=== PATIENT | female | born 1945 | race Caucasian/White ===

== ENCOUNTER 2016-11-02 21:22 | Emergency (ER) | payer OTHER ==
[2016-11-02] MEDS ORDERED: KETOROLAC 30 MG/1 ML SDV IVP ONE (22:11)
[2016-11-02] MEDS ORDERED: NS 1,000 ML IV ONE (22:11)
[2016-11-02] MEDS ORDERED: PROMETHAZINE HCL 25 MG/ML INJ IVP ONE (22:12)
--- NOTE | 2016-11-02 22:17 | EDPHY ---
H & P Stated Complaint: EPISODE ARTERITIS- BECOME SEVERE TODAY, INCREASED PREDNISONE ON MON Time Seen by Provider: 11/02/16 22:02 HPI/ROS: HPI The patient presents with headache which began approximately 4 days ago and is sharp in nature, located in her right temporal region. She has a diagnosis of temporal arteritis and called her doctor. She increased her dose of prednisone 4 days ago from 10 mg to 20 mg for 1 week. Today she was at a [employer] service with loud music and bright lights at approximately 6:30 p.m. and her headache became worse. It is severe now, has been constant, was initially associated with blurry vision was is which is now resolved. She also has nausea without any vomiting.. REVIEW OF SYSTEMS Constitutional: No fever, no chills. Eyes: No discharge. ENT: No sore throat. Cardiovascular: No chest pain, no palpitations. Respiratory: No cough, no shortness of breath. Gastrointestinal: No abdominal pain, no vomiting. Genitourinary: No hematuria. Musculoskeletal: No back pain. Skin: No rashes. Neurological: Positive for headache. PMHx: Temporal arteritis, followed by Neurology PHYSICAL General Appearance: Alert, uncomfortable appearing, crying Eyes: Pupils equal and round no pallor or injection ENT, Mouth: Mucous membranes moist Respiratory: There are no retractions, lungs are clear to auscultation Cardiovascular: Regular rate and rhythm Gastrointestinal: Abdomen is soft and non-tender, no masses, bowel sounds normal Neurological: A&O, moves all extremities Skin: Warm and dry, no rashes Musculoskeletal: Neck is supple non tender Extremities: symmetrical, full range of motion Psychiatric: Patient is oriented X 3, there is no agitation Source: Patient Exam Limitations: No limitations - Personal History Current Tetanus/Diphtheria Vaccine: Yes Tetanus Vaccine Date: 2007 - Medical/Surgical History Hx Asthma: Yes Hx Chronic Respiratory Disease: Yes Hx Diabetes: No Hx Cardiac Disease: Yes Hx Renal Disease: No Hx Cirrhosis: No Hx Alcoholism: No Hx HIV/AIDS: No Hx Splenectomy or Spleen Trauma: No Other PMH: fibromyalgia, HTN, obesity, eczema. asthma, spinal fusion. appy dimitris, shoulder surgery(bilat rotator cuffs), bilat knee replacements. Angio February 2012 @[facility]. - Social History Smoking Status: Never smoked Constitutional: Initial Vital Signs Temperature (C) 36.8 C 11/02/16 21:31 Heart Rate 79 11/02/16 21:31 Respiratory Rate 24 H 11/02/16 21:31 Blood Pressure 130/90 H 11/02/16 21:31 O2 Sat (%) 93 11/02/16 21:31 O2 Delivery Mode Room Air O2 (L/minute) 3 Allergies/Adverse Reactions: latex [Latex] Allergy (Severe, Verified 11/02/16 21:27) Dyspnea hydrocodone bitartrate [From Vicodin] Allergy (Intermediate, Verified 11/02/16 21:27) Rash Sulfa (Sulfonamide Antibiotics) Allergy (Mild, Verified 11/02/16 21:27) Rash CINNAMON, CUMIN, BEER, WINE Allergy (Severe, Uncoded 11/02/16 21:27) DERMATITIS TOMATOES Allergy (Severe, Uncoded 11/02/16 21:27) DERMATITIS CHOCOLATE Allergy (Intermediate, Uncoded 11/02/16 21:27) DERMATITIS Home Medications: Medication Instructions Recorded Budesonide/Formoterol 160/4.5 1 puffs IH BID 08/20/13 [Symbicort 160-4.5 Mcg Inh (*)] DULoxetine [Cymbalta 60 MG (*)] 60 mg PO DAILY 08/20/13 Diphenoxylate HCl/Atrop Sulf 1 tab PO PRN PRN 08/20/13 [Lomotil Tab (*)] Hyoscyamine Sulfate [Levsin, 0.125 mg PO Q12H PRN 08/20/13 Hyomax-Sl 0.125 mg (*)] Montelukast Sodium [Singulair 10 10 mg PO DAILY@1800 08/20/13 mg (*)] Pregabalin [LYRICA] 200 mg PO BID 08/20/13 diphenhydrAMINE [Benadryl 25 MG 25 mg PO HS PRN 08/20/13 (*)] Doxepin HCl [Sinequan 50 MG (*)] 50 mg PO DAILY PRN 04/04/16 Cetirizine [ZyrTEC 10 mg (*)] 10 mg PO DAILY PRN 04/07/16 Docusate Sodium [Colace 100 MG (*)] 100 mg PO BID PRN 04/07/16 Fluticasone Nasal [Flonase Nasal 1 sprays EACHNARE DAILY PRN 04/07/16 [place]] Lansoprazole [Prevacid] 30 mg PO DAILY 04/07/16 Valsartan/Hydrochlorothiazide 1 each PO DAILY 04/07/16 [Valsartan-Hctz 160-12.5 mg Tab] predniSONE [Deltasone] 60 mg PO DAILY 04/07/16 Clobetasol 0.05% 11/02/16 Medical Decision Making ED Course/Re-evaluation: The patient was given IV fluids, Toradol, Phenergan with significant improvement in her headache. She is now experiencing only a mild headache which is tolerable for her. Her neuro exam continues to be normal. She will be discharged home in the care of her . I have encouraged her to take ibuprofen and Tylenol as needed for her headache in the coming days. If it persists, she is to follow up with her powder mixer. She should continue her prednisone. Differential Diagnosis: This is a 71-year-old female with diagnosis of temporal arteritis, currently on prednisone, who presents from home with severe headache which has gotten progressively worse since it started 4 days ago, possibly triggered by bright lights and loud noises tonight. On exam, she is uncomfortable, vital signs are normal,, neurologic exam is unremarkable. Differential diagnosis includes temporal arteritis, migraine headache, tension type headache, cluster headache. - Data Points Medications Given: Discontinued Medications Sodium Chloride (Ns) 1,000 mls @ 0 mls/hr IV ONCE ONE PRN Reason: Wide Open Stop: 11/02/16 22:12 Last Admin: 11/02/16 22:19 Dose: 1,000 mls Ketorolac Tromethamine (Toradol) 30 mg IVP EDNOW ONE Stop: 11/02/16 22:12 Last Admin: 11/02/16 22:19 Dose: 30 mg Promethazine HCl (Phenergan) 12.5 mg IVP ONCE ONE Stop: 11/02/16 22:13 Last Admin: 11/02/16 22:19 Dose: 12.5 mg Departure - Departure Disposition: Home, Routine, Self-Care Clinical Impression: Temporal arteritis, Frontal headache Condition: Good Instructions: Temporal Arteritis (ED) Additional Instructions: You can take ibuprofen 400 mg and Tylenol 650 mg every 6 hours as needed for your headache. If it persists, you should contact her powder mixer for follow -up in the next 1-2 days. If it is worse in any way please room return to the emergency room. Referrals: Vania Cummings MD [Primary Care Provider] - As per Instructions
[2016-11-02 23:04] VITALS: BP 128/84; PULSE 78; RESP 14; O2SAT 98
[2016-11-02 23:49] VITALS: TEMP 97.7
== END 2016-11-02 23:48 | disposition home or self-care (01) ==
DX: R51 Headache (principal); M31.6 Other giant cell arteritis; J45.909 Unspecified asthma, uncomplicated; I10 Essential (primary) hypertension; Z91.040 Latex allergy status
CPT/HCPCS: 96361; 96374; 96375; 99284; J1885; J2550

== ENCOUNTER → 2017-07-06 | Outpatient (CLI) | payer OTHER | LOC: FIMAGING 14:34 | PROVIDERS: ATTEND Orthopaedic Surgery Orthopaedic Surgery of the Spine | DX: Z09 Encounter for follow-up examination after completed treatment for conditions other than malignant neoplasm (principal); M54.5 Low back pain; Z98.1 Arthrodesis status ==

== ENCOUNTER 2017-09-30 15:34 | Inpatient (IN) | payer OTHER ==
--- NOTE | 2017-09-30 16:04 | EDPHY ---
H & P Time Seen by Provider: 09/30/17 15:59 HPI/ROS: Chief complaint. Back pain HPI. Patient is 72-year-old female with chronic back pain. She has increased back pain over the last several days. In typical location but worsening. She had an L2 kyphoplasty 3-4 weeks ago. She had been using Percocet but had stay untoward reaction to the Percocet psoas stopped. She use some hydrocodone even though she was allergic to it but that has not helped today. She has been using ibuprofen. She has pain and burning in both legs. She also notes new weakness in her legs. No new urinary incontinence and bowel incontinence. diarrhea the last few days. No fever. History of fusion L3-S1. Review of old records reveals a x-ray from July 06 which shows settling of L2 and L3 though the fusion at L3-S1 was stable. New spondylolisthesis at L1-2, L2-3. ROS Constitutional. no fever/chills, no weakness Eyes. no problems with vision ENT. no sore throat, no nasal drainage Cardiovascular. no chest pain Respiratory. no shortness of breath, no cough Abdominal. no abdominal pain, no nausea/vomiting, no diarrhea . no problems urinating MS. Low back pain Skin. no rash Lymph. no swollen glands Neuro. Leg weakness as well as radiculopathy. New bowel and bladder incontinence Past Medical/Surgical History: Fibromyalgia, hypertension, obesity, eczema, asthma, spinal fusion, appendectomy , cholecystectomy, multiple orthopedic procedures Social History: , nonsmoker, no alcohol Smoking Status: Never smoked Physical Exam: General Appearance: Alert well-developed female moderate distress vital signs are stable Eyes: Pupils equal and round no pallor or injection. ENT, Mouth: Mucous membranes are moist. Respiratory: There are no retractions, lungs are clear to auscultation. Cardiovascular: Regular rate and rhythm. Gastrointestinal: Abdomen is soft and nontender, no masses, bowel sounds normal. Neurological: Awake and alert, sensory and motor exams grossly normal. Deep tendon reflexes are symmetrical. Great toe strength is normal. Pain with straight leg raising to 30 degrees bilaterally Skin: Warm and dry, no rashes. Musculoskeletal: Neck is supple nontender. Tenderness along the lumbar spine. Thoracic and cervical spine are nontender. No obvious swelling or erythema. Extremities symmetrical, full range of motion. Psychiatric: Patient is oriented X 3, there is no agitation. Constitutional: Initial Vital Signs Temperature (C) 36.8 C 09/30/17 15:38 Heart Rate 105 H 09/30/17 15:38 Respiratory Rate 20 09/30/17 15:38 Blood Pressure 125/70 H 09/30/17 15:38 O2 Sat (%) 91 L 09/30/17 15:38 O2 Delivery Mode Nasal Cannula O2 (L/minute) 3 Allergies/Adverse Reactions: latex [Latex] Allergy (Severe, Verified 09/30/17 15:36) Dyspnea hydrocodone bitartrate [From Vicodin] Allergy (Intermediate, Verified 09/30/17 15:36) Rash Sulfa (Sulfonamide Antibiotics) Allergy (Mild, Verified 09/30/17 15:36) Rash CINNAMON, CUMIN, BEER, WINE Allergy (Severe, Uncoded 11/02/16 21:27) DERMATITIS TOMATOES Allergy (Severe, Uncoded 11/02/16 21:27) DERMATITIS CHOCOLATE Allergy (Intermediate, Uncoded 11/02/16 21:27) DERMATITIS Home Medications: Medication Instructions Recorded Budesonide/Formoterol 160/4.5 1 puffs IH BID 08/20/13 [Symbicort 160-4.5 Mcg Inh (*)] DULoxetine [Cymbalta 60 MG (*)] 60 mg PO DAILY 08/20/13 Diphenoxylate HCl/Atrop Sulf 1 tab PO PRN PRN 08/20/13 [Lomotil Tab (*)] Hyoscyamine Sulfate [Levsin, 0.125 mg PO Q12H PRN 08/20/13 Hyomax-Sl 0.125 mg (*)] Montelukast Sodium [Singulair 10 10 mg PO DAILY@1800 08/20/13 mg (*)] Pregabalin [LYRICA] 200 mg PO BID 08/20/13 diphenhydrAMINE [Benadryl 25 MG 25 mg PO HS PRN 08/20/13 (*)] Doxepin HCl [Sinequan 50 MG (*)] 50 mg PO DAILY PRN 04/04/16 Cetirizine [ZyrTEC 10 mg (*)] 10 mg PO DAILY PRN 04/07/16 Docusate Sodium [Colace 100 MG (*)] 100 mg PO BID PRN 04/07/16 Fluticasone Nasal [Flonase Nasal 1 sprays EACHNARE DAILY PRN 04/07/16 [place]] Lansoprazole [Prevacid] 30 mg PO DAILY 04/07/16 Valsartan/Hydrochlorothiazide 1 each PO DAILY 04/07/16 [Valsartan-Hctz 160-12.5 mg Tab] predniSONE [Deltasone] 60 mg PO DAILY 04/07/16 Clobetasol 0.05% 11/02/16 Medical Decision Making - Diagnostics Imaging Results: Imaging Impressions Lumbar Spine MRI 09/30/17 16:15 Impression: 1. Interval development of disk extrusion extending superiorly left posterior paracentral location at L1-L2 contributing to severe spinal stenosis and left lateral recess stenosis along with neuroforaminal stenoses as detailed above. There is compression upon the conus with surrounding contrast enhancement related to inflammation. 2. Previous fusion from L3 through S1. 3. Persistent severe spinal stenosis at L2-L3. 4. Edema and oblique fracture suspected through the mid body of L2 with associated enhancement. 5. Subluxations once again noted at L1-L2, L2-L3, and L3-L4 measuring 3 to 4 mm. Please see findings at specific disk levels. Findings discussed with Kevon Ch M.D. at 18:20 hour, 09/30/2017. MRI lumbar spine with contrast shows a new large disc extrusion left paracentral and superior at L1-2 and is pressing on the conus. Worsening spinal stenosis at this level Edema at L2 that is also worse compared to the previous. It appears that this may be an insufficiency fracture without compression. Stable L2-3 with severe spinal stenosis Procedures: IV normal saline, Dilaudid for pain Repeat Dilaudid for pain ED Course/Re-evaluation: Re-evaluation at 6:25 p.m.-- Patient is stable and pain is better controlled. Patient, her , and I discussed imaging and lab results. We discussed treatment plan including recommendation for admission. They expressed understanding and agreement I consulted and discussed case with Dr. roque, neurosurgery who will review the MRI And see the patient in consultation I consulted discussed case with Dr. Peterson, hospitalist who agrees to the admission Differential Diagnosis: Likely this is cauda equina syndrome. She has severe spinal stenosis and a new large disc extrusion at L1 to that is pressing on the conus. I considered DJD as well. - Data Points Laboratory Results: Laboratory Results 09/30/17 16:24 09/30/17 16:24 09/30/17 09/30/17 09/30/17 18:18 16:24 16:24 WBC 10.60 10^3/uL H 10^3/uL (3.80-9.50) RBC 3.64 10^6/uL L 10^6/uL (4.18-5.33) Hgb 11.3 g/dL L g/dL (12.6-16.3) Hct 34.3 % L % (38.0-47.0) MCV 94.2 fL fL (81.5-99.8) MCH 31.0 pg pg (27.9-34.1) MCHC 32.9 g/dL g/dL (32.4-36.7) RDW 13.1 % % (11.5-15.2) Plt Count 265 10^3/uL 10^3/uL (150-400) MPV 11.1 fL fL (8.7-11.7) Neut % (Auto) 64.2 % % (39.3-74.2) Lymph % (Auto) 20.2 % % (15.0-45.0) [place] % (Auto) 12.0 % % (4.5-13.0) Eos % (Auto) 3.0 % % (0.6-7.6) Baso % (Auto) 0.3 % % (0.3-1.7) Nucleat RBC Rel Count 0.0 % % (0.0-0.2) Absolute Neuts (auto) 6.81 10^3/uL H 10^3/uL (1.70-6.50) Absolute Lymphs (auto) 2.14 10^3/uL 10^3/uL (1.00-3.00) Absolute Monos (auto) 1.27 10^3/uL H 10^3/uL (0.30-0.80) Absolute Eos (auto) 0.32 10^3/uL 10^3/uL (0.03-0.40) Absolute Basos (auto) 0.03 10^3/uL 10^3/uL (0.02-0.10) Absolute Nucleated RBC 0.00 10^3/uL 10^3/uL (0-0.01) Immature Gran % 0.3 % % (0.0-1.1) Immature Gran # 0.03 10^3/uL 10^3/uL (0.00-0.10) Sodium 136 mEq/L mEq/L (135-145) Potassium 4.3 mEq/L mEq/L (3.5-5.2) Chloride 95 mEq/L L mEq/L (97-110) Carbon Dioxide 30 mEq/l mEq/l (22-31) Anion Gap 11 mEq/L mEq/L (8-16) BUN 16 mg/dL mg/dL (7-23) Creatinine 0.8 mg/dL mg/dL (0.6-1.0) Estimated GFR > 60 Glucose 136 mg/dL H mg/dL (70-100) Calcium 9.7 mg/dL mg/dL (8.5-10.4) Urine Color YELLOW Urine Appearance CLEAR Urine pH 6.0 (5.0-7.5) Ur Specific [place] 1.013 (1.002-1.030) Urine Protein NEGATIVE (NEGATIVE) Urine Ketones NEGATIVE (NEGATIVE) Urine Blood NEGATIVE (NEGATIVE) Urine Nitrate NEGATIVE (NEGATIVE) Urine Bilirubin NEGATIVE (NEGATIVE) Urine Urobilinogen NEGATIVE EU EU (0.2-1.0) Ur Leukocyte Esterase TRACE H (NEGATIVE) Urine RBC 1-3 /hpf /hpf (0-3) Urine WBC 10-15 /hpf H /hpf (0-3) Ur Epithelial Cells NONE SEEN /lpf /lpf (NONE-1+) Hyaline Casts 5-15 /lpf /lpf (0-1) Urine Mucus TRACE /lpf /lpf (NONE-1+) Urine Glucose NEGATIVE (NEGATIVE) Medications Given: Discontinued Medications Hydromorphone HCl (Dilaudid) 0.5 mg IVP EDNOW ONE Stop: 09/30/17 16:15 Last Admin: 09/30/17 16:37 Dose: 0.5 mg Hydromorphone HCl (Dilaudid) 0.5 mg IVP EDNOW ONE Stop: 09/30/17 17:58 Last Admin: 09/30/17 18:00 Dose: 0.5 mg Sodium Chloride (Ns) 1,000 mls @ 0 mls/hr IV EDNOW ONE; Wide Open PRN Reason: Protocol Stop: 09/30/17 16:15 Last Admin: 09/30/17 16:28 Dose: 1,000 mls Departure - Departure Disposition: Home, Routine, Self-Care Clinical Impression: Lumbar canal stenosis Qualifiers: Neurogenic claudication status: with neurogenic claudication Qualified Code(s) : M48.062 - Spinal stenosis, lumbar region with neurogenic claudication Condition: Fair Referrals: Vania Cummings MD [Primary Care Provider] - As per Instructions
[2017-09-30] MEDS ORDERED: HYDROmorphONE/DILAUDID 1 MG/ML INJ IVP ONE ×3 (16:14→20:17)
[2017-09-30] MEDS ORDERED: NS 1,000 ML IV ONE (16:14)
[2017-09-30 16:38] LABS: PLATELET COUNT 265 10^3/uL (150-400)
[2017-09-30] MEDS ORDERED: GADOBUTROL 10 ML VIAL IVP ONE (16:57)
[2017-09-30] MEDS ORDERED: HYDROmorphONE/DILAUDID 1 MG/ML INJ ONE (17:55)
[2017-09-30] MEDS ORDERED: CETIRIZINE 10 MG TAB PO PRN (21:11)
[2017-09-30] MEDS ORDERED: BUDESONIDE/FORMOTEROL 160/4.5 60 PUFFS/MDI IH PRN (21:11)
[2017-09-30] MEDS ORDERED: DOCUSATE SODIUM 100 MG CAP PO PRN (21:11)
[2017-09-30] MEDS ORDERED: HYOSCYAMINE SULFATE 0.125 MG TAB PO PRN (21:11)
[2017-09-30] MEDS ORDERED: NALOXONE HCL 0.4 MG/ML INJ IVP PRN (21:14)
[2017-09-30] MEDS ORDERED: morphINE PCA 30 MG/30 ML PCA IV PRN (21:14)
[2017-09-30] MEDS ORDERED: DUPILUMAB 300 MG SQ SCH (21:15)
[2017-09-30] MEDS ORDERED: ZOLPIDEM TARTRATE 5 MG TAB PO PRN (21:18)
[2017-09-30] MEDS ORDERED: ALBUTEROL 3 ML DEYVIAL IH PRN (21:18)
[2017-09-30] MEDS ORDERED: ONDANSETRON 4 MG/2 ML VIAL IVP PRN (21:18)
[2017-09-30] MEDS ORDERED: NS 1,000 ML IV SCH (21:30)
[2017-09-30] MEDS: CYCLOBENZAPRINE 10 MG TAB PO PRN (21:40)
[2017-09-30] MEDS: ACETAMINOPHEN 325 MG TAB PO PRN (21:40)
--- NOTE | 2017-09-30 23:15 | PDGENHP ---
History and Physical History and Physical: CC: Severe back pain, leg weakness and incontinence HISTORY: This woman who has a previous history of fusion from what sounds like L3 to S2 and a recent kyphoplasty comes in now with new onset of severe low lumbar sacral pain, bilateral sciatic pain, and onset of bowel and bladder incontinent. All of these symptoms have occurred over the last several days. She does not recall any kind of injury that would have triggered these symptoms. She has no fever. There is nothing in her history to suggest likely cancer. In the emergency room she had an MRI scan showing did what sounds like a insufficiency fracture at the 2nd lumbar vertebral body, new disc pertrusion at L2-3 with new severe canal and lateral recess stenosis at that level, continued L3-4 severe stenosis, and new finding of compression of the conus. She has been seen by the neurosurgery marketing sales consultant who is recommending surgery tomorrow morning for her. Regarding assessment for surgical fitness, the patient has no history of heart disease and no symptoms to suggest any recent onset of heart disease or current heart disease. She did have a coronary angiography in 2011 with no sign of coronary diseas. e She does have a history of chronic respiratory failure and uses 2-3 L oxygen at home. She and her state that the 5 doctors at the [facility] have been unable to determine what lung or other problem is causing her chronic hypoxic respiratory failure. She did have childhood asthma but rarely has any wheezing or need for other inhaler at this point. She says that she had sleep apnea testing and was tested negative for sleep apnea however she has been prescribed BiPAP that they want her to wear at night. She says for last 6 months she has not been wearing it much due to trouble with her past history of temporal arteritis. She has never been a smoker. It sounds like she has had echocardiograms but does not recall ever being told of pulmonary hypertension. She has never had any bleeding disorders or thromboembolic disorders, never had any anesthetic complications, is not diabetic, does not have renal failure. Her activity level is minimal this is due to her ongoing back problems and not due to dyspnea or like a fitness by the patient's description, however given her story of her chronic respiratory failure on home oxygen it would seem to me that she is probably more limited by respiratory issues then she will let on. For her temporal arteritis she has been on steroids in the past. Her last use of steroid was a 10 day rapid taper 2 months ago. 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 I have reviewed the list and ordered appropriate medicines. PHYSICAL EXAMINATION: Vital Signs: Normal vital signs without fever Examination: General: alert, oriented, good mentation, very uncomfortable at this time with ongoing lumbar and sciatic pain; significant obesity Skin: warm, dry, good color, no rash HEENT: normal Neck: no mass or jvd Resps: relaxed Lungs: clear breath sounds Heart: regular, no murmur Abdomen: soft, nondistended, nontender, +BS, no mass Upper Extremities: normal Lower Extremities: no edema, warm No Bleeding or bruising Neurologic: normal speech/language, normal technical sales support specialist, no focal weakness IV site: looks normal LABORATORY DATA: Minimal elevation of white blood cell count on CBC Chemistry panel unremarkable RADIOLOGY STUDIES: MRI reviewed by me in the ER with the ER physician, shows significant spinal stenosis at L2-3 and 3 4, and I think I do appreciate the abnormality representing the reported L2 body fracture. I do not see an abscess or hematoma ASSESSMENT: 1-acute cauda equina syndrome 2-new severe spinal stenosis with cauda equina entrapment at L2-3 with persisting severe L3-4 stenosis 3-probable new compression fracture at L2 body 4-chronic hypoxemic respiratory failure, stable at baseline 3 L oxygen; 5-suspect obesity hypoventilation syndrome and/or sleep apnea for which she has been prescribed nocturnal BiPAP at home though not using it recently 6-history of temporal arteritis and a skin arteritis for which she has previously used steroids. Last dose of steroids was a 10 day rapid per completed 2 months ago 7-history of hypertension currently controlled 8-history of pre diabetes with a minimally elevated blood sugar at this time Preoperative risk assessment: The patient is a somewhat increased risk of respiratory complications based on her history but she is at a compensated stable state at this time. Her risk is certainly not prohibitive for surgery but will want to follow closely in the postop setting and I will recommend ongoing use of BiPAP during sleep during her hospital stay. She is unlikely to have a problem with adrenal insufficiency but we can watch closely for this. I would not at this time recommend using steroids. At this time there is no reason to delay surgery for any further diagnostic evaluations or medical stabilization. Please see above in the history and assessment for details. PLANS: -proceed with surgery as planned tomorrow morning -I am recommending BiPAP during sleep throughout this hospitalization and I have ordered such -bronchodilators as needed and oxygen as needed -pain management currently with LABOR DELIVERY SPECIALIST pump and some muscle relaxers -I have not ordered anticoagulant tonight for DVT prophylaxis as she will have surgery in the morning, but have ordered SCDs. Anticoagulant for prophylaxis may be ordered postoperatively once the surgeons are comfortable with that which will likely be be promptly after surgery unless complications arise I have reviewed the patient's case in detail with Dr. Kevon Ch I have reviewed the patient's past medical records as part of this assessment, including previous hospital admission records as well as outside records brought in by her
--- NOTE | 2017-09-30 23:42 | GCON ---
[f rep st] CONSULTATION DATE OF CONSULTATION: 09/30/2017 CONSULTING SERVICE: Dr. Ch, Emergency Medicine. SENIOR ORACLE SOA DEVELOPER: Dr. Pool, Neurosurgery. REASON FOR CONSULT: Spinal stenosis with back pain and urinary change. HISTORY OF PRESENT ILLNESS: The patient is a 72-year-old female with a history of an L3-S1 fusion wi Dr. Sonam Leonard in the past who has had chronic back pain since. She was slated to have a spinal cord stimulator implanted. She has also had a kyphoplasty recently. She has been seen mult iple times in and out of the hospital for severe back pain. She presents now with significant anteri or thigh pain in both legs as well as incomplete urinary incontinence for the past 7 days that may be neurogenic in nature or could possibly be pain related. She has significant spinal stenosis at 2 le vels above her fusion and she presents tonight to the emergency room with her for these compl aints. PAST MEDICAL AND SURGICAL HISTORY: Per HPI: Fibromyalgia, hypertension, obesity, eczema, asthma, sp inal fusion, appendectomy, cholecystectomy, multiple orthopedic procedures. ALLERGIES: Latex, hydrocodone, sulfa, cinnamon, tomatoes and chocolate. CODE STATUS: Full. SOCIAL HISTORY: . Nonsmoker. No alcohol. No illicits. FAMILY HISTORY: No history of spinal fusion. REVIEW OF SYSTEMS: Ten points reviewed and negative or as mentioned in History of Present Illness. PHYSICAL EXAMINATION: VITAL SIGNS: Afebrile 36.8, heart rate 105, blood pressure 125/70, respirator y rate 20, saturating 91% on 3 L. LABS: White blood cell 10.6, hemoglobin 11.3, platelets 265. Sodium 136, potassium 4.3, BUN 16, cre atinine 0.8, glucose 136. UA normal with only trace leuk esterase and 10 white blood cells. IMAGING: I reviewed the patient's MRI. She has significant stenosis at the adjacent segment above h er fusion at L1-2 and L2-3 with anterior listhesis there as well. She is fused in a flat back config uration as well from L3-S1. NEUROLOGIC EXAM: Patient is awake, alert, oriented x3. Appears stated age. She is in significant d iscomfort in her ED bed. She has normal cranial nerves. She has 5/5 strength in all extremities wit h a normal sensory exam and normal reflex exam without any abnormal exam findings. Gait is deferred. IMPRESSION AND PLAN: A 72-year-old female with a history of an L3-S1 spinal fusion. She has been fu sed in a flat back spinal deformity. She has had significant adjacent segment disk disease at L1-2 a nd L2-3. She has chronic back pain. She has stenosis as well at L1-2 and L2-3, and she has been hav ing some vague urinary changes for the past week or so. Given the patient's chronic pain and now bow el bladder change, surgery is indicated. I am scheduling her for an extension of her fusion up to L1 with laminectomies at L1-2 and L2-3, and hopefully some attempt at correcting her abysmal spinal def ormity that was created with her first spinal fusion with Dr. Leonard. I spent an hour at the bedside with the patient and her explaining the ends and outs of the d iagnosis and procedure plans. They were very grateful. I then proceeded to the operating room and b ooked the case for tomorrow morning. She will be admitted to Medicine for pain control and medical c romulo. /[id number]/MODL
--- NOTE | 2017-10-01 00:02 | PDMN ---
Medical Necessity Medical necessity: C/M review: est. > 2 MN LOS for eval and TX of acute cauda equine syndrome, new severe spinal stenosis with cauda equine entrapment at L2- l3 with persisting severe L3-L4 stenosis, probable new compression fracture at L2 body requiring planned 10/01/2017 surgical intervention, ongoing BiPaP during sleep throughout this hospitalization, pulse oximetry, supplemental O2, IV Morphine STEREOTYPE MOLDER, IV fluids, comorbid chronic hypoxemic respiratory failure, baseline O2 3L/min., suspected obesity hypoventilation syndrome and / or sleep apnea for which patient has been prescribed nocturnal BiPaP at home but not using it currently, history of temporal arteritis, hypertension, pre-diabetes per H/P.
[2017-10-01 05:20] LABS: PLATELET COUNT 242 10^3/uL (150-400)
[2017-10-01] MEDS: PREGABALIN 100 MG CAP PO SCH ×2 (08:47→22:06)
[2017-10-01] MEDS: DULoxetine 60 MG CAP PO SCH (08:47)
[2017-10-01] MEDS: VALSARTAN/HCTZ 80-12.5MG TAB PO SCH (08:48)
[2017-10-01] MEDS: PANTOPRAZOLE SODIUM 40 MG TAB PO SCH (08:48)
[2017-10-01] MEDS ORDERED: ceFAZolin 2 GM/SWFI 2 GM/20 ML SYR IVP ONE (09:00)
[2017-10-01] MEDS ORDERED: ceFAZolin 2 GM/SWFI 20 ML SYR IVP ONE (09:00)
--- NOTE | 2017-10-01 09:23 | NEUSURGPN ---
Assessment/Plan: Assessment: 72 yr old with history of L3-S1 fusion in 2012, presented to ER with urinary incontinence and anterior/quad pain bilaterally Plan: -MRI lumbar spine shows disc bulge at L1-2 and stenosis at L2-3 with listhesis and flat back deformity from her prior surgery -CT lumbar spine shows lucency at her bilateral S1 screws and left L3 screw -Patient planned for surgery today for L1-2, L2-3 TLIF/laminectomy with tie into existing hardware with Dr Pool -Risks/benefits discussed and consent has been signed -Discussed CT findings with patient and . Correction of pseudo at L5-S1 would require a more extensive surgery including an anterior/posterior approach. We will see how she recovers from this surgery which is needed to address the severe stenosis at the levels above her fusion site and hope that we can avoid more extensive surgery in the future. -Patient and agree with the plan and wish to proceed -Patient is currently incontinent of urine -Discussed patient with Dr Pool and he will see her as well prior to surgery -Please call neurosurgery with any questions/concerns Subjective: patient has bilateral leg pain equally Objective: AxO x3 5/5 BUE 4/5 BLE throughout Sensation intact to light touch BLE Neuro Check Frequency: per routine Urinary Catheter in Place: No - Physician Discussed Patient with Dr.: Pool Patient Seen by Dr.: Pool Neurosurgery Physical Exam - Vitals, I&O, Labs I and O 09/30/17 10/01/17 10/02/17 05:59 05:59 05:59 Intake Total 2020 Output Total 200 Balance 1821 Weight 99.79 kg Intake: Oral (ml) 300 IV Infused (ml) 1721 Ns 1,000 ml @ 75 mls/hr 721 IV CONT CORWIN Rx#: [id number] Output: Urine (ml) 200 Other: Number of Voids 1 Bedpan 0 Vital Signs Temp Pulse Resp BP Pulse Ox 36.9 C 92 16 112/64 100 10/01/17 08:36 10/01/17 08:36 10/01/17 08:36 10/01/17 08:36 10/01/17 08:36 Laboratory Results 10/01/17 04:25 10/01/17 04:25 ICD10 Worksheet Patient Problems: Problems Problem Status Onset Lumbar canal stenosis Acute C. difficile diarrhea Acute 04/12/17 Chest pain Acute Hypertension Acute RAD (reactive airway disease) Acute Stenosis (acquired) of bladder neck or vesicourethral orifice Acute
--- NOTE | 2017-10-01 09:26 | PDHPUP ---
History & Physical Update H&P update statement: This history and physical update is based on an assessment of the patient which was completed after admission or registration (within 24 hours), but prior to the surgery/procedure. H&P update: H&P reviewed & patient examined, no change in patient's condition since H&P completed
[2017-10-01] MEDS ORDERED: DEXMEDETOMIDINE/NS 4MCG/ML 50 ML BTL IV ONE (09:28)
[2017-10-01] MEDS ORDERED: ALBUMIN 5% 250 ML BOTTLE IV ONE (09:28)
[2017-10-01] MEDS ORDERED: PROPOFOL/EMULSION 500 MG/50 ML BOTTLE IV ONE (09:30)
[2017-10-01] MEDS ORDERED: fentaNYL 100 MCG/2 ML INJ ONE ×6 (09:30→18:21)
[2017-10-01] MEDS: fentaNYL 100 MCG/2 ML INJ IVP PRN ×5 (09:40→18:25)
[2017-10-01] MEDS ORDERED: VANCOMYCIN 1 GM VIAL ONE (09:44)
[2017-10-01] MEDS ORDERED: BUPIVACAINE 0.25% 30 ML SDV ONE (09:44)
[2017-10-01] MEDS ORDERED: THROMBIN (BOVINE) 5,000 UNIT VIAL TP ONE (09:44)
[2017-10-01] MEDS ORDERED: BACITRACIN 50,000 UNITS/10 ML SYR IRR ONE ×2 (09:45→09:58)
[2017-10-01] MEDS ORDERED: CITRATE DEXTROSE SOLN 500 ML BAG ONE ×2 (09:47→12:48)
--- NOTE | 2017-10-01 09:53 | ASMTCMCOM ---
CM Note CM Note Notes: Reviewed chart amnd discussed w/RN. Pt in surgery today. She lives at home w/. CM will follow post-op to determine if any dc needs. Date Signed: 10/01/2017 09:52 AM Electronically Signed By:Gaby Lyon RN
[2017-10-01] MEDS ORDERED: HYDROmorphONE/DILAUDID 1 MG/ML INJ ONE (10:35)
[2017-10-01] MEDS: HYDROmorphONE/DILAUDID 1 MG/ML INJ IVP PRN ×3 (10:40→11:21)
[2017-10-01] MEDS ORDERED: MIDAZOLAM 2 MG/2 ML VIAL ONE (12:15)
[2017-10-01] MEDS ORDERED: ROCURONIUM 50 MG/5 ML VIAL ONE (12:56)
[2017-10-01] MEDS ORDERED: PHENYLEPHRINE 10 MG/ML SDV ONE (12:56)
[2017-10-01] MEDS ORDERED: RANITIDINE 50 MG/2 ML VIAL ONE ×2 (12:56)
[2017-10-01] MEDS ORDERED: LIDOCAINE 2% 5 ML SDV ONE (12:56)
--- NOTE | 2017-10-01 13:19 | PDANEPAE ---
ANE Past Medical History - Pulmonary History Hx Oxygen in Use at Home: Yes O2 in Use at Home (L/minute): 3 Hx Sleep Apnea: Yes Sleep Apnea Screening Result - Last Documented: Positive - Endocrine History Hx Diabetes: No - Chronic Pain History Chronic Pain: Yes ANE Review of Systems Review of Systems: ANE Patient History - Allergies Allergies/Adverse Reactions: latex [Latex] Allergy (Severe, Verified 09/30/17 15:36) Dyspnea hydrocodone bitartrate [From Vicodin] Allergy (Intermediate, Verified 09/30/17 15:36) Rash Sulfa (Sulfonamide Antibiotics) Allergy (Mild, Verified 09/30/17 15:36) Rash CINNAMON, CUMIN, BEER, WINE Allergy (Severe, Uncoded 11/02/16 21:27) DERMATITIS TOMATOES Allergy (Severe, Uncoded 11/02/16 21:27) DERMATITIS CHOCOLATE Allergy (Intermediate, Uncoded 11/02/16 21:27) DERMATITIS - Home Medications Home Medications: Budesonide/Formoterol 160/4.5 [Symbicort 160-4.5 Mcg Inh (*)] 1 puffs IH BID PRN 08/20/13 [Last Taken 08/20/13 08:20] DULoxetine [Cymbalta 60 MG (*)] 60 mg PO DAILY 08/20/13 [Last Taken 09/30/17] Diphenoxylate HCl/Atrop Sulf [Lomotil Tab (*)] 1 tab PO PRN PRN 08/20/13 [Last Taken Unknown] Hyoscyamine Sulfate [Levsin, Hyomax-Sl 0.125 mg (*)] 0.25 mg PO Q12H PRN [Last Taken Unknown] Montelukast Sodium [Singulair 10 mg (*)] 10 mg PO DAILY@1900 08/20/13 [Last Taken 04/06/16] Pregabalin [LYRICA] 200 mg PO BID@,19 08/20/13 [Last Taken 04/06/16 21:00] diphenhydrAMINE [Benadryl 25 MG (*)] 25 mg PO HS PRN 08/20/13 [Last Taken Unknown] Doxepin HCl [Sinequan 50 MG (*)] 50 - 100 mg PO DAILY PRN 04/04/16 [Last Taken Unknown] Cetirizine [ZyrTEC 10 mg (*)] 10 mg PO TID PRN 04/07/16 [Last Taken Unknown] Docusate Sodium [Colace 100 MG (*)] 100 mg PO BID PRN 04/07/16 [Last Taken Unknown] Lansoprazole [Prevacid] 30 mg PO DAILY 04/07/16 [Last Taken 09/30/17] Dupilumab [Dupixent] 300 mg SQ Q14D 09/30/17 [Last Taken 09/17/17] Hydroxyzine Pamoate [Vistaril] 25 - 100 mg PO Q6H PRN 09/30/17 [Last Taken Unknown] Valsartan/Hctz [Diovan Hct 80/12.5 mg (*)] 1 each PO DAILY 09/30/17 [Last Taken 09/30/17] - NPO status NPO Since - Liquids (Date): 10/01/17 NPO Since - Liquids (Time): 00:00 NPO Since - Solids (Date): 09/30/17 NPO Since - Solids (Time): 22:00 - Smoking Hx Smoking Status: Never smoked ANE Labs/Vital Signs - Labs Result Diagrams: 10/01/17 04:25 10/01/17 04:25 - Vital Signs Blood Pressure: 100/67 Heart Rate: 92 Respiratory Rate: 16 O2 Sat (%): 97 Height: 157.48 cm Weight: 99.79 kg ANE Physical Exam - Airway Neck exam: decreased ROM, increased neck circumference, short neck Mallampati Score: Class 3 Mouth exam: normal dental/mouth exam, small mouth opening - Pulmonary Pulmonary: reduced air movement, expiratory wheeze, respiratory distress - Cardiovascular Cardiovascular: regular rate and rhythym, no murmur, rub, or gallop, pulses symmetric bilaterally - ASA Status ASA Status: III, E ANE Anesthesia Plan Anesthesia Plan: general endotracheal anesthesia Lines/Monitors: arterial line, additional IV
[2017-10-01] MEDS ORDERED: HYDROCORTISONE 100 MG/2 ML VIAL ONE (13:49)
[2017-10-01] MEDS ORDERED: HYDROmorphONE/DILAUDID 1 MG/ML INJ IVP PRN ×2 (14:25→16:51)
[2017-10-01] MEDS ORDERED: DIAZEPAM 10 MG/2 ML SYR IVP PRN (14:25)
[2017-10-01] MEDS ORDERED: LR 500 ML IV PRN (14:25)
[2017-10-01] MEDS ORDERED: NALOXONE HCL 0.4 MG/ML INJ IVP PRN ×2 (14:25→16:51)
[2017-10-01] MEDS ORDERED: fentaNYL 100 MCG/2 ML INJ IVP PRN ×2 (14:25→16:51)
[2017-10-01] MEDS ORDERED: ALBUTEROL 3 ML DEYVIAL IH PRN (14:25)
[2017-10-01] MEDS ORDERED: PHENYLEPHRINE HCL 100 MCG/ML SYR IVP PRN (14:25)
[2017-10-01] MEDS ORDERED: DEXAMETHASONE 4 MG/ML VIAL IVP PRN (14:25)
[2017-10-01] MEDS ORDERED: ONDANSETRON 4 MG/2 ML VIAL IVP PRN ×2 (14:25→16:51)
[2017-10-01] MEDS ORDERED: CALCIUM CHLORIDE 1 GM/10 ML INJ ONE ×2 (14:29→16:49)
[2017-10-01] MEDS ORDERED: PROPOFOL 200 MG/20 ML VIAL ONE ×2 (15:48→16:40)
[2017-10-01] MEDS ORDERED: BUPIVACAINE 0.5% 30 ML SDV ONE (16:44)
[2017-10-01] MEDS ORDERED: SUGAMMADEX SODIUM 200 MG/2 ML VIAL IVP ONE (16:50)
[2017-10-01] MEDS ORDERED: ONDANSETRON 4 MG/2 ML VIAL ONE (16:50)
--- NOTE | 2017-10-01 17:03 | POSTOPPROG ---
Post Op Note Date of Operation: 10/01/17 Surgeon: Jonathan Pool Aniline Press Worker: Sintia Matthews Anesthesiologist: Dariel Anesthesia: GET(General Endotracheal) Pre-op Diagnosis: Lumbar stenosis, ASD Procedure: L1-2, L2-3 PSF/laminectomies with tie into existing hardware Inf/Abcess present in the surg proc area at time of surgery?: No Depth: Deep Incisional (Fascial) EBL: 100-500 Total fluids administered: see anesthesia Complications: none Drains: John Greene Date of Surgery: 10/01/17 Post Op Day: 0 Assessment/Plan: Assessment: 72 yr old with history of L3-S1 fusion in 2012, presented to ER with urinary incontinence and anterior/quad pain bilaterally. S/P L1-2, L2-3 fusion with laminectomies and tie into existing hardware Plan: -Admit to SDU -PT/OT -Pain management, Precedex gtt if needed -Lumbar xrays when able to be upright -Discussed CT findings with patient and . Correction of pseudo at L5-S1 would require a more extensive surgery including an anterior/posterior approach. We will see how she recovers from this surgery which is needed to address the severe stenosis at the levels above her fusion site and hope that we can avoid more extensive surgery in the future. -Please call neurosurgery with any questions/concerns Subjective: Patient waking up in PACU Objective: Waking up in PACU Moving extremities x4 Sensation intact to light touch BLE Dressing CDI BLANCA patent Appropriate Neuro Check Frequency Ordered: Yes
[2017-10-01] MEDS ORDERED: diphenhydrAMINE 25 MG CAP PO PRN (17:04)
[2017-10-01] MEDS ORDERED: BISACODYL 10 MG SUPP PR PRN (17:04)
[2017-10-01] MEDS ORDERED: POLYETHYLENE GLYCOL 3350 17 GM PKT PO PRN (17:04)
[2017-10-01] MEDS ORDERED: LACTULOSE 20 GM/30 ML UDCUP PO PRN (17:04)
[2017-10-01] MEDS ORDERED: MAGNESIUM HYDROXIDE 30 ML UDCUP PO PRN (17:04)
[2017-10-01] MEDS ORDERED: DEXMEDETOMIDINE HCL 400 MCG in NS 100 ML IV SCH (18:00)
--- NOTE | 2017-10-01 18:06 | POSTANESTH ---
Post Anesthetic Evaluation Cardiovascular Status: Normal, Stable, Similar to Pre-Op Cond Respiratory Status: Normal, Stable, Similar to Pre-op Cond. Level of Consciousness/Mental Status: Mildly Sleepy, Arousable Pain Control: Adequate, Prn Tx Ordered Nausea/Vomiting Control: Adequate, Prn Tx Ordered Complications Possibly Related to Anesthesia: Other, See Comments Notes: Right IV infiltrated as we moved the patient from prone to supine position. Propofol infusion running through that iv. Iv discontinued. Right hand elevated at heart level with pillows and wrapped in warm blankets. Report given to PRINTING ROLLER POLISHER to keep watching and checking the right hand
[2017-10-01] MEDS ORDERED: DEXMEDETOMIDINE IN 0.9 % NACL 50 ML IV SCH (19:00)
[2017-10-01] MEDS: CYCLOBENZAPRINE 10 MG TAB PO PRN (20:08)
[2017-10-01] MEDS: oxyCODONE IR 5 MG TAB PO PRN (20:08)
[2017-10-01] MEDS: METHOCARBAMOL 750 MG TAB PO SCH (20:08)
[2017-10-01] MEDS: MONTELUKAST SODIUM 10 MG TAB PO SCH (20:30)
[2017-10-01] MEDS: ceFAZolin 2 GM/DEXTROSE 100 ML IV SCH (20:31)
[2017-10-01] MEDS: FAMOTIDINE 20 MG TAB PO SCH (20:33)
--- NOTE | 2017-10-01 21:40 | HOSPPROG ---
Hospitalist Progress Note Assessment/Plan: Was unable to talk with patient or examine her today because she was out of her room for surgery. IM service will resume following her tomorrow. Objective: Vital Signs Temp Pulse Resp BP Pulse Ox 36.4 C 98 21 H 121/62 H 100 10/01/17 19:00 10/01/17 20:00 10/01/17 19:00 10/01/17 19:00 10/01/17 20:00 Laboratory Results 10/01/17 04:25 10/01/17 04:25 09/30/17 10/01/17 10/02/17 05:59 05:59 05:59 Intake Total 202 800 Output Total 200 1130 Balance 1821 -330 ICD10 Worksheet Patient Problems: Problems Problem Status Onset Lumbar canal stenosis Acute C. difficile diarrhea Acute 12/14/16 Chest pain Acute Hypertension Acute RAD (reactive airway disease) Acute Stenosis (acquired) of bladder neck or vesicourethral orifice Acute
[2017-10-01] MEDS ORDERED: GABAPENTIN 300 MG CAP PO SCH (22:00)
[2017-10-02 05:09] LABS: PLATELET COUNT 65 10^3/uL (150-400)
[2017-10-02] MEDS: METHOCARBAMOL 750 MG TAB PO SCH ×4 (05:16→20:55)
[2017-10-02] MEDS: oxyCODONE IR 5 MG TAB PO PRN ×2 (05:16→14:40)
[2017-10-02] MEDS: ceFAZolin 2 GM/DEXTROSE 100 ML IV SCH (05:17)
[2017-10-02] MEDS: PREGABALIN 100 MG CAP PO SCH ×2 (07:17→20:55)
[2017-10-02] MEDS: FAMOTIDINE 20 MG TAB PO SCH ×2 (07:21→20:55)
[2017-10-02] MEDS: DULoxetine 60 MG CAP PO SCH (07:21)
[2017-10-02] MEDS ORDERED: IOPAMIDOL (ISOVUE 370) 100 ML BTL IV ONE (08:34)
--- NOTE | 2017-10-02 10:14 | HOSPPROG ---
Hospitalist Progress Note Assessment/Plan: # possible TIA - symptoms improving on re-evaluation - lumbar fusion yesterday is an absolute contraindication to tPA - CTH, CTA H&N without options for intervention - check echo, lipids, follow on tele - neuro consult tomorrow - consider MRI - would not tolerate today # lumbar fusion yesterday d/t cauda equina syndrome - post-op care per nsg # thrombocytopenia - resolved on recheck - lab error? # ABLA, post-op - transfuse 2U PRBC # tachycardia - likely d/t anemia # chronic resp failure, baseline 3L # hx temporal arteritis - no indication for steroids currently # htn - currently on home meds # hx burak danlos # pre-DM - glucs ok # obesity - BMI 43 Subjective: called emergently to bedside for a stroke alert Objective: Vital Signs Temp Pulse Resp BP Pulse Ox 36.4 C 131 H 18 109/67 100 10/01/17 19:00 10/02/17 07:55 10/02/17 04:00 10/02/17 07:55 10/02/17 07:55 Laboratory Results 10/02/17 04:50 10/02/17 04:50 10/01/17 10/02/17 10/03/17 05:59 05:59 05:59 Intake Total 2020 1784 Output Total 200 1735 100 Balance 1821 49 -100 35 minutes of critical care time given concern for acute neurologic change with high risk of permanent deficits - Physical Exam Constitutional: uncomfortable Cardiovascular: regular rate and rhythym, no murmur, rub, or gallop Respiratory: no respiratory distress, no rales or rhonchi Gastrointestinal: soft, non-tender abdomen, no palpable masses Neurologic: AAOx3, CN II-XII Intact, other (expressive aphasia), No weakness, No numbness, No asterixes ICD10 Worksheet Patient Problems: Problems Problem Status Onset Lumbar canal stenosis Acute C. difficile diarrhea Acute 12/14/16 Chest pain Acute Hypertension Acute RAD (reactive airway disease) Acute Stenosis (acquired) of bladder neck or vesicourethral orifice Acute
--- NOTE | 2017-10-02 10:34 | NEUSURGPN ---
Date of Surgery: 10/01/17 Post Op Day: 1 Assessment/Plan: Assessment: 72 yr old with history of L3-S1 fusion in 2013, presented to ER with urinary incontinence and anterior/quad pain bilaterally. S/P L1-2, L2-3 fusion with laminectomies and tie into existing hardware POD#1 Plan: -Patient had word salad this am and a stroke alert was called. CT head CTA head /neck performed. CT head negative. CTA had no evidence of thrombus. -H/H 22/, platelets 65 this am. Medicine is ordering transfusion for patient, we appreciate their help with management. -Medicine consulting neurology for likely TIA this am -PT/OT -Pain management, may place ice pack to incisional area -Lumbar xrays when able to be upright -Will keep BLANCA in -Please call neurosurgery with any questions/concerns Discussed patient with Dr Pool Subjective: expected back pain Objective: AxO x3 speech clear no droop CN 2-12 grossly intact 5/5 BLE Dressing CDI BLANCA patent Neuro Check Frequency: per routine Urinary Catheter in Place: Yes Urinary Catheter Indication: Accurate I & O Required - Physician Discussed Patient with : Yrn Neurosurgery Physical Exam - Vitals, I&O, Labs I and O 10/01/17 10/02/17 10/03/17 05:59 05:59 05:59 Intake Total 2020 1784 Output Total 200 1735 100 Balance 1821 49 -100 Weight 99.79 kg 108.3 kg Intake: Oral (ml) 300 250 IV Intake (ml) 800 IV Infused (ml) 1721 734 Ns 1,000 ml @ 75 mls/hr 721 734 IV CONT CORWIN Rx#: [id number] Output: Urine (ml) 200 950 Bedpan 550 Catheter 400 Estimated Blood Loss (ml) 500 BLANCA Drain Output (ml) 285 100 #1 Left Back 285 100 Other: Number of Voids 1 Bedpan 0 Vital Signs Temp Pulse Resp BP Pulse Ox 36.4 C 131 H 18 109/67 100 10/01/17 19:00 10/02/17 07:55 10/02/17 04:00 10/02/17 07:55 10/02/17 07:55 Laboratory Results 10/02/17 04:50 10/02/17 04:50 ICD10 Worksheet Patient Problems: Problems Problem Status Onset Lumbar canal stenosis Acute C. difficile diarrhea Acute 12/14/16 Chest pain Acute Hypertension Acute RAD (reactive airway disease) Acute Stenosis (acquired) of bladder neck or vesicourethral orifice Acute
[2017-10-02 10:42] LABS: PLATELET COUNT 207 10^3/uL (150-400)
[2017-10-02] MEDS: PANTOPRAZOLE SODIUM 40 MG TAB PO SCH (11:03)
[2017-10-02] MEDS: VALSARTAN/HCTZ 80-12.5MG TAB PO SCH (11:23)
--- NOTE | 2017-10-02 11:38 | SOAPPROG ---
SOAP Progress Note Assessment/Plan: Assessment: Patient post lumbar fusion surgery yesterday. At the end of the surgery, the iv with propofol infusion infiltrated. I suspected some amount of propofol extravasated in the tissue. iv discontinued. Right hand kept elevated at heart level and wrapped in warm blankets. Today the skin of the right hand looks better, fingers are warm and pink. There is less edema but some skin discoloration persists over the right hand and wrist (hard to say how much is chronic poor skin perfusion and how much is the effect of the iv infiltration). Will continue the supportive measures. Plan: 10/02/17 11:32 Objective: Vital Signs Temp Pulse Resp BP Pulse Ox 36.4 C 131 H 18 109/67 100 10/01/17 19:00 10/02/17 07:55 10/02/17 04:00 10/02/17 07:55 10/02/17 07:55 Laboratory Results 10/02/17 10:30 10/02/17 04:50 10/01/17 10/02/17 10/03/17 05:59 05:59 05:59 Intake Total 2020 1784 Output Total 200 1735 100 Balance 1821 49 -100 ICD10 Worksheet Patient Problems: Problems Problem Status Onset Lumbar canal stenosis Acute C. difficile diarrhea Acute 12/14/16 Chest pain Acute Hypertension Acute RAD (reactive airway disease) Acute Stenosis (acquired) of bladder neck or vesicourethral orifice Acute
--- NOTE | 2017-10-02 12:29 | ECHO ---
[email or web address] [address] Main: [phone] Fax: Transthoracic Echocardiogram Name: TU ANDERS MR#: [id number] Study Date: 10/02/2017 Study Time: 10:39 AM Date of : 1945 Age: 72 year(s) Height: 157.5 cm (62 in.) Weight: 107.96 kg (238 lb.) BSA: 2.06 m2 Gender: Female Examination: Echo Indication: TIA, bilateral lower extremity weakness Image Quality: Contrast: Requested by: Arash Jarquin BP: 139 mmHg/70 mmHg Heart Rate: Rhythm: Tachycardia Indication: TIA, bilateral lower extremity weakness Procedure Staff Spar Cap Beveler: Gareth Ledezma [facility] Reading Physician: Andrea Barnes Requesting Provider: Conclusions: Normal size left ventricle. No LV hypertrophy. Global hypercontractility of the left ventricle. EF is 69 %. The mitral valve is normal in appearance and function. There is no mitral valve regurgitation. Aortic valve is not well visualized. There is no aortic valve regurgitation. No aortic valve stenosis is present. The pulmonary artery pressure is normal. No old studies for comparison. No obvious source for TIA. Consider FER if clinically indicated. Measurements: Chambers Valvular Assessment AV/MV Valvular Assessment TV/PV Normal Normal Normal Name Value Range Name Value Range Name Value Range Ao Eliza (MM): 2.8 cm (2.2 cm-3.7 AV Vmax: 2.10 m/s (1 m/s-1.7 TR Vmax: 3.07 mm/s ( - ) cm) m/s) TR PGmax: 38 mmHg ( - ) IVSd (2D): 1.0 cm (0.6 cm-1.1 AV maxP mmHg ( - ) syst. PAP: 43 mmHg ( - ) cm) LVOT Vmax: 1.30 m/s (0.7 m/s-1.1 PV Vmax: 1.13 m/s (0.6 m/s-0.9 LVDd (2D): 4.2 cm (3.9 cm-5.3 m/s) m/s) cm) MV E Vmax: 0.69 m/s ( - ) PV PGmax: 5 mmHg ( - ) LVDs (2D): 2.6 cm (2.1 cm-4 MV A Vmax: 1.06 m/s ( - ) cm) MV E/A: 0.65 ( - ) LVPWd (2D): 1.1 cm ( - ) LVEF (2D): 69 (>=54 %) Continued Measurements: Chambers Valvular Assessment AV/MV Valvular Assessment TV/PV Patient: TU ANDERS Study Date: 10/02/2017 Page 1 of 2 10:39 AM Name Value Name Value Name Value LADs Lon.7 cm MV E/E' Septal: 9.80 CVP (est.): 5 mmHg LA Area: 16.9 cm2 MV E/E' Lateral: 15.10 LA Volume: 41 ml LA Volume Index: 19.9 ml/m2 TAPSE: 2.0 cm Findings: Left Ventricle: Normal size left ventricle. No LV hypertrophy. Global hypercontractility of the left ventricle. EF is 69 %. No regional wall motion abnormality. Diastolic dysfunction is present. . Right Ventricle: Normal size right ventricle. Normal RV function. Left Atrium: The left atrium is normal in size. Right Atrium: The right atrium is normal in size. Mitral Valve: The mitral valve is normal in appearance and function. There is no mitral valve regurgitation. Aortic Valve: Aortic valve is not well visualized. There is no aortic valve regurgitation. No aortic valve stenosis is present. Tricuspid Valve: The tricuspid valve appears normal. Trivial to mild tricuspid valve regurgitation. The pulmonary artery pressure is normal. Pulmonic Valve: The pulmonic valve is normal in appearance and function. Aorta: The aorta is normal. Pericardium: No pericardial effusion. (No Signature Object) Patient: TU ANDERS Study Date: 10/02/2017 Page 2 of 2 10:39 AM [id number]
[2017-10-02] MEDS ORDERED: ALTEPLASE 2 MG VIAL IVP PRN (14:10)
--- NOTE | 2017-10-02 15:39 | ASMTCMCOM ---
CM Note CM Note Notes: L1-2, 2-3 Lami, Stroke alert today, Bipap at night. Therapies recommending SNF Rehab. Date Signed: 10/02/2017 03:38 PM Electronically Signed By:Lovely Epps LCSW
[2017-10-02] MEDS: MONTELUKAST SODIUM 10 MG TAB PO SCH (20:55)
--- NOTE | 2017-10-03 01:31 | GOP ---
[f rep st] OPERATIVE REPORT DATE OF OPERATION: 10/01/2017 SURGEON: Jonathan Pool MD RAILROAD CAR CHECKER: Sintia Matthews NP. ANESTHESIA: General endotracheal anesthesia. PREOPERATIVE DIAGNOSIS: Significant acute on chronic back pain exacerbation due to flat back spinal deformity from the prior L3 to S1 spinal fusion with significant adjacent segment disk disease at L1- 2 and L2-3, with significant L1 to L3 stenosis, worsening back pain, worsening leg symptoms, and moran ges in bladder function. POSTOPERATIVE DIAGNOSIS: Significant acute on chronic back pain exacerbation due to flat back spinal deformity from the prior L3 to S1 spinal fusion with significant adjacent segment disk disease at L1 -2 and L2-3, with significant L1 to L3 stenosis, worsening back pain, worsening leg symptoms, and javi nges in bladder function. PROCEDURE PERFORMED: Exploration of L3-4 spinal fusion, removal of hardware from L3 to L4, extension of an L3 to S1 posterior spinal fusion to include now an L1 to S1 posterior spinal fusion, placement of segmental instrumentation, L1-2 and L2-3 laminectomies for neural decompression, use of local mor selized autograft, use of allograft, use of the O arm and Stealth Neuronavigation, and use of neuromo nitoring. FINDINGS: Navigation was used to ensure an adequate decompression from L1 to L3, improvement of the patient's lumbar flat back with improved lumbar lordosis, safe placement of all instrumentation. SPECIMENS: Removed: None. ESTIMATED BLOOD LOSS: 500 cc. INDICATIONS: The patient is a 72-year-old female who has a history of an L3 to S1 posterior spinal f usion with Dr. Leonard in the past. She has had significant back pain for quite a while now, and was being worked up by Dr. Delgado [facility] for placement of a spinal cord sti mulator. She came to the [facility] Department on 09/30/2017, with significant wors ening of her back pain, leg symptoms and new complaints of bladder changes for the past 6 days. Her MRI showed significant adjacent segment disk disease at L1-2 and L2-3, and significant stenosis at th cl levels as well with compression of the cauda equina nerve roots. I recommended decompression to improve her bladder symptoms and further extension of her fusion to stabilize her adjacent levels in hopes of improving her back pain. She does have significant flat back deformity and we discussed how , in a perfect scenario, we would address this to correct her overall problem but in the setting of b owel and bladder changes, we need to decompress the stenotic levels and extend her fusion and in the future, depending on how she is doing, we may need to return to the operating room to redo her entire fusion and give her better lumbar lordosis. I discussed this with her and her extensively a nd discussed risks, benefits, and alternatives of the procedure. They signed informed consent prior to the procedure. DESCRIPTION OF PROCEDURE: The patient was brought into the operating room and a sign-in was ephraim ca. She was given 2 g of IV Ancef to prevent postoperative infection. She was smoothly induced under general anesthesia and intubated without difficulty. Appropriate IV access was obtained. A Woodard c atheter was placed. Neuromonitoring electrodes were placed and baseline signals were obtained. SCDs were placed to prevent postoperative DVT. She was turned from the supine to prone position onto an open John table, and her low back was washed with chlorhexidine shampoo and rubbing alcohol, which was allowed to dry. A prone incision was traced out and was extended cranially and then, ChloraPrep was used to sterilize the skin. Prior to beginning the procedure, the time-out was performed in which all members of Surg juanis, Anesthesia, and Nursing went over the necessary checklist items and agreed to proceed as one. A sterile field was created with blue towels, an Ioban and a sterile surgical drape. 20 cc of 0.25% M arcaine with 1:200,000 parts epinephrine was injected along the planned incision line. A #10 scalpel blade was used to incise half of her old incision, and we extended a new incision approximately 4 cm cranially. Bovie electrocautery was used to dissect down in the midline direction to the spinous pr ocesses and the paraspinal musculature was stripped off the spinal column bilaterally, so that we had exposed the L1, L2 and L3 pedicle screw entry sites. We encountered old hardware and dissected out this bilaterally as well, from L3 to L4, including the rods between the L4 and L5 pedicle screws. Once we had achieved adequate exposure, a spinal process clamp for navigation was placed on the L3 sp inous process. We packed the wound and covered the patient sterilely, and brought the arm into the ield and performed a navigational spin. We checked it for accuracy and once verified, we removed the arm from the field and undraped the patient. We then proceeded with pedicle screw placement at L1 a nd L2 bilaterally, which went without difficulty. We then proceeded with our decompressive portion o f the stage. We used the Stealth Neuronavigation to ensure that we got an adequate decompression across her stenos ed segments. I performed a complete laminectomy from L1 to L3, and we collected the patient's makah bone and cleaned it of soft tissue, and processed and morselized it for arthrodesis purposes. Once we had an adequate decompression, we then took a carbide drill bit and disconnected the rods between L4 and L5 bilaterally. We verified on the CAT scan that the patient appeared to be fused at L4-5 fro m her old procedure. We removed the rods and we also removed bilateral L3 pedicle screws; on the lef t, her L3 pedicle screw had haloed, so we replaced both L3 screws with pedicle screws of wider diamet er and we did have very good purchase at this level. We left the patient's old L4 pedicle screws wit h a plan to run straight rods from L1 to L4 bilaterally; again, she was fused at L4-5, so we felt jay t we did not have to connect into the L5-S1 segments that had already been fused and instrumented. Once we replaced her old pedicle screws at L3, we then measured rods bilaterally from L1 to L4, and p laced precut, prebent cobalt chrome rods in that location. Given the fact that she had a very flat b ack spinal deformity, we used a reduction tower to set the rods into the pedicle screws and by doing so, we increased the patient's lumbar lordosis, which is 1 of the stated goals of the procedure. Onc e we had placed and set both bilateral rods, we draped her again sterilely and brought the arm in for a check spin, in which we verified good placement of all of her instrumentation and we also recogniz ed improvement in her lumbar lordosis as well. We removed the arm from the field and undraped the pa tient once more. We irrigated out the incision with copious amounts of antibiotic solution. We perf ormed hemostasis. We then performed a posterior lateral fusion by drilling down the visible bone posteriorly and also t he transverse processes on both sides, and we then performed arthrodesis by placing all the patient's makah bone posterolaterally and then on top of this, we placed our corticocancellous allograft whic h was mixed with our Progenix Plus allograft, DBM putty matrix. Once we were satisfied with our post erolateral fusion from L1 to L4, we proceeded with closure. A #7 flat BLANCA drain was placed in the ope rative bed. We injected the paraspinal musculature with half plain Marcaine for postoperative analge savannah purposes. We closed the paraspinal musculature and the lumbodorsal fascia with 0 pop-off Vicryl suture. We irr igated out the suprafascial compartment with antibiotic solution, copious amounts. We closed the noemi mis with a 2-0 Vicryl suture in an inverted fashion. The skin edges approximated well. We cleaned [facility] skin with a wet and dry sponge, and then we applied a layer of Dermabond. We allowed this to dry, and then we secured the drainage tube with a 2-0 Vicryl stitch, and hooked up to full bulb compressi on. We removed the drapes and dressed the wound sterilely. We returned the patient from the prone t o supine position on the [facility], where she was reversed from anesthesia and extubated, and taken to [facility] postoperative care unit for recovery. All counts were correct. All neuromonitoring signals were stable during the procedure. I was there for the entirety of the procedure. The patient was found to be in stable neurologic and medical cond ition in the postoperative care unit. I updated the patient's family personally and they were gratef ul for the care I had given their loved one. Standard orders were given for her to go to the ICU pos toperatively on a Precedex drip for pain control. She was stable neurologically before I left the op erating room and the hospital. COMPLICATIONS: None. IMPLANTS: frentingtronic Solera 5.5/6.0 system was used. 5.5 x 45 mm pedicle screws were placed bilateral ly at L1, 5.5 x 40 mm pedicle screws were placed bilaterally at L2. Old pedicle screws were removed at L3 and replaced with new pedicle screws measuring 7.5 mm x 40 mm bilaterally. Bilateral 100 mm 5. 5 mm cobalt chrome rods were placed bilaterally from L1 to L4. 30 cc of cortical cancellous crushed allograft chips were implanted for arthrodesis, as well as 20 cc of a Progenix Plus mixed DBM matrix with corticocancellous chips. /[id number]/MODL
[2017-10-03] MEDS: oxyCODONE IR 5 MG TAB PO PRN ×2 (02:22→23:55)
[2017-10-03] MEDS: ACETAMINOPHEN 325 MG TAB PO PRN ×3 (02:22→20:04)
[2017-10-03 05:26] LABS: PLATELET COUNT 174 10^3/uL (150-400)
[2017-10-03] MEDS: PREGABALIN 100 MG CAP PO SCH ×2 (06:13→18:19)
[2017-10-03] MEDS: METHOCARBAMOL 750 MG TAB PO SCH ×2 (06:13→12:07)
--- NOTE | 2017-10-03 07:50 | NEUSURGPN ---
Assessment/Plan: Assessment: 72 yr old with history of L3-S1 fusion in 2013, presented to ER with urinary incontinence and anterior/quad pain bilaterally. S/P L1-2, L2-3 fusion with laminectomies and tie into existing hardware POD#2 Plan: -RN removing wrist band on right side d/t edema. -Patient had word salad yesterday and a stroke alert was called. CT head CTA head/neck performed. CT head negative. CTA had no evidence of thrombus. -H/H 8.6/25.1, s/p transfusion. -Medicine consulting neurology for likely TIA -PT/OT -Pain management, may place ice pack to incisional area -Lumbar xrays when able to be upright -Will keep BLANCA in - had 370 out last 24 hours -Please call neurosurgery with any questions/concerns Discussed patient with Dr Pool Subjective: Pt resting in recliner, states she is very sleepy Objective: Sleepy but awakens easily NAD VSS MAEx4 Motor 5/5 df/pf, 4/5 bilat quads - poor effort +LT Urinary Catheter in Place: No - Physician Discussed Patient with : [facility] Neurosurgery Physical Exam - Vitals, I&O, Labs I and O 10/02/17 10/03/17 10/04/17 05:59 05:59 05:59 Intake Total 1784 863 Output Total 1735 1820 Balance 49 -957 Weight 108.3 kg 108.2 kg Intake: Oral (ml) 250 200 IV Intake (ml) 800 IV Infused (ml) 734 263 Ns 1,000 ml @ 75 mls/hr 734 263 IV CONT CORWIN Rx#: [id number] Autologous Blood (ml) 50 Packed Red Blood Cells ( 350 ml) Output: Urine (ml) 950 1450 Bedpan 550 Bedside Commode 1450 Catheter 400 Estimated Blood Loss (ml) 500 BLANCA Drain Output (ml) 285 370 #1 Left Back 285 370 Other: Number of Voids Bedside Commode 2 Vital Signs Temp Pulse Resp BP Pulse Ox 37.3 C 100 18 106/59 L 97 10/03/17 04:00 10/03/17 04:00 10/03/17 04:00 10/03/17 04:00 10/03/17 04:00 Laboratory Results 10/03/17 05:15 10/03/17 05:15 ICD10 Worksheet Patient Problems: Problems Problem Status Onset Lumbar canal stenosis Acute C. difficile diarrhea Acute 12/14/16 Chest pain Acute Hypertension Acute RAD (reactive airway disease) Acute Stenosis (acquired) of bladder neck or vesicourethral orifice Acute
[2017-10-03] MEDS: FAMOTIDINE 20 MG TAB PO SCH ×2 (09:12→20:05)
[2017-10-03] MEDS: PANTOPRAZOLE SODIUM 40 MG TAB PO SCH (09:12)
[2017-10-03] MEDS: DULoxetine 60 MG CAP PO SCH (09:13)
--- NOTE | 2017-10-03 10:09 | NEUROPROG ---
Assessment: [id number] - Neurology Consult: - CC: Slurred speech, confusion - HPI: Patient with prior L3-S1 fusion in [address] [facility] on 09/30/17 for urinary incontinence and anterior/quad pain bilaterally. L-spine MRI was concerning for severe symptomatic degenerative disease so a lumbar fusion surgery of L1-2, L2-3 fusion with laminectomies and tie into existing hardware on 10/01/17. On the patient was noted to have confused speech so a stroke alert was called. CT head and CTA head/neck performed and no abnormality noted. Speech problems improving. Recent lumbar surgery on 10/01/17 is an absolute contraindication to TPA. Dr. Jarquin, medicine service, ordered TTE, lipids, and telemetry to further evaluate possible TIA/stroke. Pt has a history of temporal arteritis but no headache of vision changes. I initially saw the patient on 10/03/17. She was very tired, had slight slurred speech, and was inattentive when I saw her. Her nurse did report she had received pain medication overnight. TTE showed no cardioembolic source. LDL 12. - PMHx: L3-S1 fusion 2012, chronic respiratory failure on home O2, temporal arteritis, HTN, HLD, fibromyalgia, EDS, prediabetes, obesity, appi, knee surgery , C diff, collagenous colitis, bowel obstruction, bone graft to jaw, D&C - SHx: FHx: NC - ROS: Pt denied acute fever, total vision loss, active severe chest pain, respiratory failure, total body severe rash, total bowel/bladder incontinence, psychosis, active seizures, or active bleeding - O: VS reviewed General: somnolent Eyes: Fundoscopic exam not able to visualize optic disks CV: Heart RRR, no murmur, no carotid bruit Lungs: Clear to auscultation bilaterally, no rhonchi or rales Neuro: - Mental: . Oriented x person/place but not date . concentration appears reduced . speech fluency/comprehension difficult to test as patient somnolent . memory appears reduced . fund of knowledge appear reduced - Cranial Nerves: . II: PERRL, VFFTC . III/IV/: EOMI, no nystagmus, normal smooth pursuits, no Ptosis . V: facial sensation intact to LT . VII: face symmetric to eye closure and smile . VIII: hearing intact to conversation . IX/X: uvula raises symmetrically, slurred speech . XI: SCM 5/5 B/L strength . XII: tongue protrudes midline w/nl strength - Motor: . Tone: normal tone in all 4 extremity . Strength: global weakness in arms/legs with inability to hold them up against gravity, it appears to be due to her general encephalopathy and not focal weakness - Reflexes: B/L patella trace/4 - Sensory: all 4 extremity intact to light touch - Coord: pt too weak for testing - Gait: deferred - NIH SS: 11 (8 for limb weakness, 1 LOC, 1 month/age, 1 dysarthria) - Labs: 10/02/17- Chem wnl 10/03/17- LDL 12L - Rads: 09/30/17- L-spine MRI w/o con: Interval development of disk extrusion extending superiorly left posterior paracentral location at L1-L2 contributing to severe spinal stenosis and left lateral recess stenosis along with neuroforaminal stenosis as detailed above. There is compression upon the conus with surrounding contrast enhancement related to inflammation. Previous fusion from L3 through S1. Persistent severe spinal stenosis at L2-L3. Edema and oblique fracture suspected through the mid body of L2 with associated enhancement. Subluxations once again noted at L1-L2, L2-L3, and L3-L4 measuring 3 to 4 mm - 10/02/17- Head CT: no definite acute intracranial findings (I personally visualized the images on 10/02/17) 10/02/17- CTA head/neck: no significant abnormality seen, no significant stenosis , Moderate to marked tortuosity of the common carotid artery bilaterally as well as the ICA bilaterally 10/02/17- TTE: no cardioembolic source seen 10/02/17- 24 hour telemetry: no afib reported - Assessment: 1.Onset on 10/02/17 of slurred speech, inattentiveness, somnolence, weakness: Neurologic exam on 10/03/17 shows somnolence, inattentiveness, global weakness which are all consistent with an encephalopathy. Pt likely has toxic metabolic encephalopathy causing symptoms given recent lumbar surgery on 10/01/17 and medications used for pain/anesthesia. However, stroke are also possible so I will further evaluate with a brain MRI. - Plan: - Brain MRI w/o con to evaluate for stroke - If brain MRI shows stroke then begin aspirin 81 mg qd if OK with neurosurgery and hospitalist service for recurrent stroke prevention Objective: Vital Signs Temp Pulse Resp BP Pulse Ox 36.3 C 96 14 107/55 L 100 10/03/17 08:00 10/03/17 08:00 10/03/17 08:00 10/03/17 08:00 10/03/17 08:00 Laboratory Results 10/03/17 05:15 10/03/17 05:15 10/02/17 10/03/17 10/04/17 05:59 05:59 05:59 Intake Total 4102 424 Output Total 5685 9393 Balance 49 957 Allergies/Adverse Reactions: latex [Latex] Allergy (Severe, Verified 09/30/17 15:36) Dyspnea hydrocodone bitartrate [From Vicodin] Allergy (Intermediate, Verified 09/30/17 15:36) Rash Sulfa (Sulfonamide Antibiotics) Allergy (Mild, Verified 09/30/17 15:36) Rash CINNAMON, CUMIN, BEER, WINE Allergy (Severe, Uncoded 11/02/16 21:27) DERMATITIS TOMATOES Allergy (Severe, Uncoded 11/02/16 21:27) DERMATITIS CHOCOLATE Allergy (Intermediate, Uncoded 11/02/16 21:27) DERMATITIS
[2017-10-03] MEDS: VALSARTAN/HCTZ 80-12.5MG TAB PO SCH (10:10)
--- NOTE | 2017-10-03 11:13 | ASMTCMCOM ---
CM Note CM Note Notes: Spoke to patient and regarding SNF Rehab. They are interested in [facility]. Referral sent. Date Signed: 10/03/2017 11:12 AM Electronically Signed By:Lovely Epps LCSW
--- NOTE | 2017-10-03 14:50 | HOSPPROG ---
Hospitalist Progress Note Assessment/Plan: # possible TIA - symptoms improving on re-evaluation - lumbar fusion is an absolute contraindication to tPA - CTH, CTA H&N without options for intervention - check echo, lipids, follow on tele - neuro consult appreciated -MRI today -she has had similar symptoms postoperatively # lumbar fusion yesterday d/t cauda equina syndrome - post-op care per nsg # thrombocytopenia - resolved on recheck - lab error? # ABLA, post-op - transfuse 2U PRBC # tachycardia - likely d/t anemia # chronic resp failure, baseline 3L # hx temporal arteritis - no indication for steroids currently # htn - hold antihypertensives, blood pressure is little bit low # hx burak danlos # pre-DM - glucs ok # obesity - BMI 43 Subjective: In pain and somnolent Objective: Vital Signs Temp Pulse Resp BP Pulse Ox 36.4 C 104 H 19 101/64 99 10/03/17 12:00 10/03/17 12:00 10/03/17 12:00 10/03/17 12:00 10/03/17 12:00 Laboratory Results 10/03/17 05:15 10/03/17 05:15 10/02/17 10/03/17 10/04/17 05:59 05:59 05:59 Intake Total 1789 863 Output Total 1736 4480 Balance 49 -957 - Physical Exam Constitutional: no apparent distress, appears nourished, not in pain Eyes: anicteric sclera, EOMI Cardiovascular: regular rate and rhythym Respiratory: no respiratory distress, no rales or rhonchi Gastrointestinal: normoactive bowel sounds, soft, non-tender abdomen, no palpable masses Skin: warm Neurologic: AAOx3 Psychiatric: other (somnolent) ICD10 Worksheet Patient Problems: Problems Problem Status Onset Lumbar canal stenosis Acute C. difficile diarrhea Acute 12/14/16 Chest pain Acute Hypertension Acute RAD (reactive airway disease) Acute Stenosis (acquired) of bladder neck or vesicourethral orifice Acute
[2017-10-03] MEDS ORDERED: ZOLPIDEM TARTRATE 5 MG TAB PO PRN (15:45)
--- NOTE | 2017-10-03 15:55 | PDINTPN ---
Payroll Officer Progress Note Assessment/Plan: Assessment: S/P L!-L3 fusion/hardware: C/O postoperative site pain, but on minimal medications and sleeping much of the day. Anemia: Likely due to perioperative blood loss and volume expansion. H/H improved with transfusions, no signs of active bleeding. Encephalopathy: With some aphasia 10/02, now better, but still quite lethargic. Likely metabolic/medications. Right wrist IV infiltration: Clinically unchanged, still some discomfort. Hypokalemia: Mild Plan: Minimize narcotics and other psychoactive medications. May try Precedex gtt if having more pain. MRI brain to look for signs of ischemic event. Follow H /H. Replace K+ 10/03/17 16:01 Subjective: Sleeping, but complains of pain at surgical site and right wrist infiltration site when awoken. Objective: Vital Signs Temp Pulse Resp BP Pulse Ox 36.4 C 104 H 19 101/64 99 10/03/17 12:00 10/03/17 12:00 10/03/17 12:00 10/03/17 12:00 10/03/17 12:00 Laboratory Results 10/03/17 05:15 10/03/17 05:15 10/02/17 10/03/17 10/04/17 05:59 05:59 05:59 Intake Total 1784 863 240 Output Total 1735 1820 150 Balance 49 -957 90 Physical Exam - Physical Exam General Appearance: alert, no apparent distress EENT: normal ENT inspection Neck: normal inspection Respiratory: lungs clear, normal breath sounds Cardiac/Chest: regular rate, rhythm, No edema Abdomen: normal bowel sounds, non-tender, No soft Skin: normal color, warm/dry, other (edema/eccymoses right wrist) Extremities: normal inspection Neuro/Psych: alert, normal mood/affect, No oriented x 3, No motor weakness ICD10 Worksheet Patient Problems: Problems Problem Status Onset Lumbar canal stenosis Acute C. difficile diarrhea Acute 12/14/16 Chest pain Acute Hypertension Acute RAD (reactive airway disease) Acute Stenosis (acquired) of bladder neck or vesicourethral orifice Acute
[2017-10-03] MEDS ORDERED: DEXMEDETOMIDINE IN 0.9 % NACL 50 ML IV SCH (16:00)
[2017-10-03] MEDS ORDERED: POTASSIUM CL 20 MEQ/15 ML UDCUP PO ONE (16:03)
[2017-10-03] MEDS: MONTELUKAST SODIUM 10 MG TAB PO SCH (18:19)
[2017-10-03] MEDS: MELATONIN 3 MG TAB PO SCH (20:05)
[2017-10-04] MEDS: ACETAMINOPHEN 325 MG TAB PO PRN ×3 (04:00→15:17)
[2017-10-04 05:07] LABS: PLATELET COUNT 211 10^3/uL (150-400)
[2017-10-04] MEDS: PREGABALIN 100 MG CAP PO SCH ×2 (06:43→18:43)
[2017-10-04] MEDS: PANTOPRAZOLE SODIUM 40 MG TAB PO SCH (08:39)
[2017-10-04] MEDS: DULoxetine 60 MG CAP PO SCH (08:39)
[2017-10-04] MEDS: ENOXAPARIN 40 MG/0.4 ML SYR SC SCH (08:39)
[2017-10-04] MEDS: oxyCODONE IR 5 MG TAB PO PRN ×3 (09:05→20:52)
[2017-10-04] MEDS ORDERED: GADOBUTROL 10 ML VIAL IVP ONE (09:13)
--- NOTE | 2017-10-04 09:38 | NEUROPROG ---
Assessment: [id number] - Neurology Consult: - CC: Slurred speech, confusion - Narrative Summary: Patient with prior L3-S1 fusion in 2012 admitted to [facility] on 09/30/17 for urinary incontinence and anterior/quad pain bilaterally. L-spine MRI was concerning for severe symptomatic degenerative disease so a lumbar fusion surgery of L1-2, L2-3 fusion with laminectomies and tie into existing hardware on 10/01/17. On the patient was noted to have confused speech so a stroke alert was called. CT head and CTA head/neck performed and no abnormality noted. Speech problems improving. Recent lumbar surgery on 10/01/17 is an absolute contraindication to TPA. Dr. Jarquin, medicine service, ordered TTE, lipids, and telemetry to further evaluate possible TIA/stroke. Pt has a history of temporal arteritis but no headache of vision changes. I initially saw the patient on 10/03/17. She was very tired, had slight slurred speech, and was inattentive when I saw her. Her nurse did report she had received pain medication overnight. TTE showed no cardioembolic source. LDL 12. - HPI: Inpatient f/u 10/04/17. Brain MRI not yet done. Pt more alert today. Sitting up and using toilet. Pt and nurse denied any events overnight. - PMHx: L3-S1 fusion 2012, chronic respiratory failure on home O2, temporal arteritis, HTN, HLD, fibromyalgia, EDS, prediabetes, obesity, appi, knee surgery , C diff, collagenous colitis, bowel obstruction, bone graft to jaw, D&C - SHx: FHx: NC - ROS: Pt denied acute fever, total vision loss, active severe chest pain, respiratory failure, total body severe rash, total bowel/bladder incontinence, psychosis, active seizures, or active bleeding - Labs: 10/02/17- Chem wnl 10/03/17- LDL 12L - Rads: 09/30/17- L-spine MRI w/o con: Interval development of disk extrusion extending superiorly left posterior paracentral location at L1-L2 contributing to severe spinal stenosis and left lateral recess stenosis along with neuroforaminal stenosis as detailed above. There is compression upon the conus with surrounding contrast enhancement related to inflammation. Previous fusion from L3 through S1. Persistent severe spinal stenosis at L2-L3. Edema and oblique fracture suspected through the mid body of L2 with associated enhancement. Subluxations once again noted at L1-L2, L2-L3, and L3-L4 measuring 3 to 4 mm - 10/02/17- Head CT: no definite acute intracranial findings (I personally visualized the images on 10/02/17) 10/02/17- CTA head/neck: no significant abnormality seen, no significant stenosis , Moderate to marked tortuosity of the common carotid artery bilaterally as well as the ICA bilaterally 10/02/17- TTE: no cardioembolic source seen 10/02/17- 24 hour telemetry: no afib reported - Assessment: 1.Onset on 10/02/17 of slurred speech, inattentiveness, somnolence, weakness: Neurologic exam on 10/03/17 shows somnolence, inattentiveness, global weakness which are all consistent with an encephalopathy. Pt likely has toxic metabolic encephalopathy causing symptoms given recent lumbar surgery on 10/01/17 and medications used for pain/anesthesia. However, stroke are also possible so I will further evaluate with a brain MRI. - Plan: - Brain MRI w/o con to evaluate for stroke - If brain MRI shows stroke then begin aspirin 81 mg qd if OK with neurosurgery and hospitalist service for recurrent stroke prevention - 35 min spent with patient and nurse counseling and coordinating care. Objective: Vital Signs Temp Pulse Resp BP Pulse Ox 36.8 C 96 18 102/50 L 100 10/04/17 08:00 10/04/17 08:00 10/04/17 08:00 10/04/17 08:00 10/04/17 08:00 Laboratory Results 10/04/17 05:00 10/04/17 05:00 10/03/17 10/04/17 10/05/17 05:59 05:59 05:59 Intake Total 863 720 Output Total 5660 790 Balance -957 -47 Allergies/Adverse Reactions: latex [Latex] Allergy (Severe, Verified 09/30/17 15:36) Dyspnea hydrocodone bitartrate [From Vicodin] Allergy (Intermediate, Verified 09/30/17 15:36) Rash Sulfa (Sulfonamide Antibiotics) Allergy (Mild, Verified 09/30/17 15:36) Rash CINNAMON, CUMIN, BEER, WINE Allergy (Severe, Uncoded 11/02/16 21:27) DERMATITIS TOMATOES Allergy (Severe, Uncoded 11/02/16 21:27) DERMATITIS CHOCOLATE Allergy (Intermediate, Uncoded 11/02/16 21:27) DERMATITIS
--- NOTE | 2017-10-04 12:18 | NEUSURGPN ---
Assessment/Plan: Assessment/Plan: Assessment: 72 yr old with history of L3-S1 fusion in 2013, presented to ER with urinary incontinence and anterior/quad pain bilaterally. S/P L1-2, L2-3 fusion with laminectomies and tie into existing hardware POD#3 Plan: -Neuro: Overall more awake today and pain improving. Going down for MRI Brain today -H/H stable -Neurology on board for suspected TIA- wants to start on 81mg ASA, this is ok from neurosurgery standpoint -PT/OT -Pain managemen- limit narcs but ok to give robaxin prn and may help more with muscle spasms/leg pain -Lumbar xrays performed and show stable hardware placement -Will keep BLANCA in today -Please call neurosurgery with any questions/concerns Discussed patient with Dr Pool Subjective: Pt on her way to MRI. More awake today and states pain is still severe but better than yesterday. Objective: A&O X 3 PERRL, EOMI CN II-XII grossly intact Motor 5/5 df/pf, 4/5 bilat quads- pain limited on right +LT - Physician Discussed Patient with : Yrn Neurosurgery Physical Exam - Vitals, I&O, Labs I and O 10/03/17 10/04/17 10/05/17 05:59 05:59 05:59 Intake Total 863 720 Output Total 1820 790 125 Balance -957 -70 -125 Weight 108.2 kg Intake: Oral (ml) 200 720 IV Infused (ml) 263 Ns 1,000 ml @ 75 mls/hr 263 IV CONT CORWIN Rx#: [id number] Autologous Blood (ml) 50 Packed Red Blood Cells ( 350 ml) Output: Urine (ml) 1450 655 125 Bedside Commode 1450 655 125 BLANCA Drain Output (ml) 370 135 #1 Left Back 370 135 Other: Number of Voids Bedside Commode 2 1 Number of Stools Bedside Commode 1 1 Vital Signs Temp Pulse Resp BP Pulse Ox 36.8 C 96 18 102/50 L 100 10/04/17 08:00 10/04/17 08:00 10/04/17 08:00 10/04/17 08:00 10/04/17 08:00 Laboratory Results 10/04/17 05:00 10/04/17 05:00 ICD10 Worksheet Patient Problems: Problems Problem Status Onset Lumbar canal stenosis Acute C. difficile diarrhea Acute 12/14/16 Chest pain Acute Hypertension Acute RAD (reactive airway disease) Acute Stenosis (acquired) of bladder neck or vesicourethral orifice Acute
--- NOTE | 2017-10-04 15:40 | HOSPPROG ---
Hospitalist Progress Note Assessment/Plan: # encephalopathy versus TIA- symptoms improving on re-evaluation - MRIs negative -she has had similar symptoms postoperatively # lumbar fusion yesterday d/t cauda equina syndrome - post-op care per nsg # thrombocytopenia - resolved on recheck - lab error? # ABLA, post-op - transfuse 2U PRBC # tachycardia - likely d/t anemia # chronic resp failure, baseline 3L # hx temporal arteritis - no indication for steroids currently # htn - hold antihypertensives, blood pressure is little bit low # hx burak danlos # pre-DM - glucs ok # obesity - BMI 43 # dispositionm -putting in inpatient rehab evaluation Subjective: Feels a lot better. More awake. Some right radicular pain Objective: Vital Signs Temp Pulse Resp BP Pulse Ox 36.8 C 95 18 90/61 L 100 10/04/17 12:00 10/04/17 12:00 10/04/17 08:00 10/04/17 12:00 10/04/17 12:00 Laboratory Results 10/04/17 05:00 10/04/17 05:00 10/03/17 10/04/17 10/05/17 05:59 05:59 05:59 Intake Total 863 720 Output Total 1820 790 125 Balance -957 -70 -125 - Physical Exam Constitutional: no apparent distress, appears nourished, not in pain Eyes: anicteric sclera, EOMI Ears, Nose, Mouth, Throat: moist mucous membranes, hearing normal Cardiovascular: regular rate and rhythym, no murmur, rub, or gallop Respiratory: no respiratory distress, no rales or rhonchi Gastrointestinal: normoactive bowel sounds, soft, non-tender abdomen, no palpable masses Skin: warm Neurologic: AAOx3 Psychiatric: interacting appropriately, not anxious, not encephalopathic, thought process linear ICD10 Worksheet Patient Problems: Problems Problem Status Onset Lumbar canal stenosis Acute C. difficile diarrhea Acute 12/14/16 Chest pain Acute Hypertension Acute RAD (reactive airway disease) Acute Stenosis (acquired) of bladder neck or vesicourethral orifice Acute
[2017-10-04] MEDS: MONTELUKAST SODIUM 10 MG TAB PO SCH (18:43)
[2017-10-04] MEDS: MELATONIN 3 MG TAB PO SCH (20:52)
[2017-10-04] MEDS: METHOCARBAMOL 750 MG TAB PO PRN (20:52)
[2017-10-05] MEDS: oxyCODONE IR 5 MG TAB PO PRN ×5 (02:25→22:12)
[2017-10-05] MEDS: PREGABALIN 100 MG CAP PO SCH ×2 (06:21→18:09)
--- NOTE | 2017-10-05 07:17 | NEUSURGPN ---
Assessment/Plan: Assessment: 72 yr old with history of L3-S1 fusion in 2013, presented to ER with urinary incontinence and anterior/quad pain bilaterally. S/P L1-2, L2-3 fusion with laminectomies and tie into existing hardware POD#4 Plan: -Neuro: Overall more awake today and pain improving. -MRI brain w/o evidence of stroke. Prefer no ASA. -H/H stable -Neurology on board for suspected TIA- MRI was negative for stroke. Appreciate neurology input -PT/OT - brace is not mandatory, for comfort only. -Pain management- limit narcs but ok to give robaxin prn and may help more with muscle spasms/leg pain -Lumbar xrays performed and show stable hardware placement -Will keep BLANCA in today -Change dressing today -OK to shower -Please call neurosurgery with any questions/concerns Discussed patient with Dr Pool Subjective: Pt resting in bed, states pain is manageable. Objective: AAOx3 NAD VSS MAEx4 Motor 5/5 BLE L elbow with significant bruising. R wrist with large scab +LT Urinary Catheter in Place: No - Physician Discussed Patient with : Yrn Neurosurgery Physical Exam - Vitals, I&O, Labs I and O 10/04/17 10/05/17 10/06/17 05:59 05:59 05:59 Intake Total 720 400 Output Total 790 325 340 Balance -70 -325 60 Intake: Oral (ml) 720 400 Output: Urine (ml) 655 325 300 Bedside Commode 655 325 300 BLANCA Drain Output (ml) 135 40 #1 Left Back 135 40 Other: Intake Quantity Yes Sufficient Number of Voids Bedside Commode 1 Number of Stools Bedside Commode 1 1 Vital Signs Temp Pulse Resp BP Pulse Ox 36.6 C 97 17 116/70 99 10/05/17 04:00 10/05/17 04:00 10/05/17 04:00 10/05/17 04:00 10/05/17 04:00 Laboratory Results 10/04/17 05:00 10/04/17 05:00 ICD10 Worksheet Patient Problems: Problems Problem Status Onset Lumbar canal stenosis Acute C. difficile diarrhea Acute 12/14/16 Chest pain Acute Hypertension Acute RAD (reactive airway disease) Acute Stenosis (acquired) of bladder neck or vesicourethral orifice Acute
[2017-10-05] MEDS: DULoxetine 60 MG CAP PO SCH (09:16)
[2017-10-05] MEDS: PANTOPRAZOLE SODIUM 40 MG TAB PO SCH (09:16)
[2017-10-05] MEDS: METHOCARBAMOL 750 MG TAB PO PRN ×2 (09:17→22:12)
--- NOTE | 2017-10-05 09:42 | NEUROPROG ---
Assessment: [id number] - Neurology Consult: - CC: Slurred speech, confusion - Narrative Summary: Patient with prior L3-S1 fusion in 2012 admitted to [facility] on 09/30/17 for urinary incontinence and anterior/quad pain bilaterally. L-spine MRI was concerning for severe symptomatic degenerative disease so a lumbar fusion surgery of L1-2, L2-3 fusion with laminectomies and tie into existing hardware on 10/01/17. On the patient was noted to have confused speech so a stroke alert was called. CT head and CTA head/neck performed and no abnormality noted. Speech problems improving. Recent lumbar surgery on 10/01/17 is an absolute contraindication to TPA. Dr. Jarquin, medicine service, ordered TTE, lipids, and telemetry to further evaluate possible TIA/stroke. Pt has a history of temporal arteritis but no headache of vision changes. I initially saw the patient on 10/03/17. She was very tired, had slight slurred speech, and was inattentive when I saw her. Her nurse did report she had received pain medication overnight. TTE showed no cardioembolic source. LDL 12. - Inpatient f/u 10/04/17. Brain MRI not yet done. Pt more alert today. Sitting up and using toilet. Pt and nurse denied any events overnight. - Inpatient f/u 10/05/17. Brain MRI completed and no acute stroke or other acute changes. Pt doing much better today with almost no confusion. She is rapidly improving. No new complaints. - PMHx: L3-S1 fusion 2013, chronic respiratory failure on home O2, temporal arteritis, HTN, HLD, fibromyalgia, EDS, prediabetes, obesity, appi, knee surgery , C diff, collagenous colitis, bowel obstruction, bone graft to jaw, D&C - SHx: FHx: NC - ROS: Pt denied acute fever, total vision loss, active severe chest pain, respiratory failure, total body severe rash, total bowel/bladder incontinence, psychosis, active seizures, or active bleeding - Labs: 10/02/17- Chem wnl 10/03/17- LDL 12L - Rads: 09/30/17- L-spine MRI w/o con: Interval development of disk extrusion extending superiorly left posterior paracentral location at L1-L2 contributing to severe spinal stenosis and left lateral recess stenosis along with neuroforaminal stenosis as detailed above. There is compression upon the conus with surrounding contrast enhancement related to inflammation. Previous fusion from L3 through S1. Persistent severe spinal stenosis at L2-L3. Edema and oblique fracture suspected through the mid body of L2 with associated enhancement. Subluxations once again noted at L1-L2, L2-L3, and L3-L4 measuring 3 to 4 mm - 10/02/17- Head CT: no definite acute intracranial findings (I personally visualized the images on 10/02/17) 10/02/17- CTA head/neck: no significant abnormality seen, no significant stenosis , Moderate to marked tortuosity of the common carotid artery bilaterally as well as the ICA bilaterally 10/02/17- TTE: no cardioembolic source seen 10/02/17- 24 hour telemetry: no afib reported 10/04/17- Brain MRI w/o con: No ischemia, intracranial hemorrhage or acute process. Mild periventricular and subcortical white matter disease in the frontal lobes within normal limits for age. 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 - Assessment: 1.Onset on 10/02/17 of slurred speech, inattentiveness, somnolence, weakness: Neurologic exam on 10/03/17 shows somnolence, inattentiveness, global weakness which are all consistent with an encephalopathy. Pt likely has toxic metabolic encephalopathy causing symptoms given recent lumbar surgery on 10/01/17 and medications used for pain/anesthesia. Brain MRI on 10/04/17 showed no acute changes and pt was nearly back to normal cognitively on 10/05/17. - Plan: - No further inpatient w/u, neurology will sign off - recommend f/u in the neurology clinic 1-4 weeks after discharge - 35 min spent with patient counseling and coordinating care as well as discussing prognosis, symptom cause, and treatment options. Objective: Vital Signs Temp Pulse Resp BP Pulse Ox 36.8 C 97 14 119/69 99 10/05/17 07:42 10/05/17 07:42 10/05/17 07:42 10/05/17 07:42 10/05/17 07:42 Laboratory Results 10/04/17 05:00 10/04/17 05:00 10/04/17 10/05/17 10/06/17 05:59 05:59 05:59 Intake Total 720 400 Output Total 790 325 540 Balance -70 -325 -140 Allergies/Adverse Reactions: latex [Latex] Allergy (Severe, Verified 09/30/17 15:36) Dyspnea hydrocodone bitartrate [From Vicodin] Allergy (Intermediate, Verified 09/30/17 15:36) Rash Sulfa (Sulfonamide Antibiotics) Allergy (Mild, Verified 09/30/17 15:36) Rash CINNAMON, CUMIN, BEER, WINE Allergy (Severe, Uncoded 11/02/16 21:27) DERMATITIS TOMATOES Allergy (Severe, Uncoded 11/02/16 21:27) DERMATITIS CHOCOLATE Allergy (Intermediate, Uncoded 11/02/16 21:27) DERMATITIS
[2017-10-05] MEDS: ENOXAPARIN 40 MG/0.4 ML SYR SC SCH (09:57)
--- NOTE | 2017-10-05 11:48 | HOSPPROG ---
Hospitalist Progress Note Assessment/Plan: 72y female with back surgery. First encounter, chart reviewed. D/W CM. # encephalopathy versus TIA- - symptoms resolved - MRIs negative -she has had similar symptoms postoperatively - appreciate neurology # lumbar fusion - POD #2 d/t cauda equina syndrome - post-op care per nsg -PT/OT # thrombocytopenia - resolved on recheck - lab error? # ABLA, post-op - transfuse 2U PRBC - Stable # tachycardia - likely d/t anemia - resolved # chronic resp failure - baseline 3L # hx temporal arteritis - no indication for steroids currently # htn - hold antihypertensives, blood pressure is little bit low # Right forearm wound -wound care ordered # hx burak danlos # pre-DM - glucs ok # obesity - BMI 43 # disposition -inpatient rehab evaluation pending Subjective: Up working with therapy. No specific issues. Objective: Vital Signs Temp Pulse Resp BP Pulse Ox 36.8 C 97 16 106/65 100 10/05/17 11:13 10/05/17 11:13 10/05/17 11:13 10/05/17 11:13 10/05/17 11:13 Laboratory Results 10/04/17 05:00 10/04/17 05:00 10/04/17 10/05/17 10/06/17 05:59 05:59 05:59 Intake Total 720 400 Output Total 790 325 540 Balance -70 -325 -140 - Physical Exam Constitutional: appears nourished, not in pain, obese Eyes: PERRL, anicteric sclera, EOMI Ears, Nose, Mouth, Throat: moist mucous membranes, hearing normal, ears appear normal Cardiovascular: No JVD, No tachycardia, No edema Respiratory: no respiratory distress, no rales or rhonchi, reduced air movement Gastrointestinal: normoactive bowel sounds, No tenderness, No ascites Skin: warm, abrasion, No mottled Musculoskeletal: no joint effusions, pain with ROM, generalized weakness Neurologic: AAOx3 Psychiatric: interacting appropriately, not anxious, not encephalopathic, thought process linear ICD10 Worksheet Patient Problems: Problems Problem Status Onset Stenosis (acquired) of bladder neck or vesicourethral orifice Acute Lumbar canal stenosis Acute RAD (reactive airway disease) Acute Hypertension Acute Chest pain Acute C. difficile diarrhea Acute 12/14/16
--- NOTE | 2017-10-05 12:22 | ASMTCMCOM ---
CM Note CM Note Notes: PT/OT recommending inpt rehab today. Met w/pt and and they are very interested in [facility] Inpt Rehab. Discussed w/Lina and she will submit for auth to pt's insurance co. Updated Josefina at [facility] that we are trying for [facility] inpt rehab first. Discussed with RN and Hospitalist. CM will follow. Date Signed: 10/05/2017 12:21 PM Electronically Signed By:Gaby Lyon RN
--- NOTE | 2017-10-05 16:29 | ASMTCMCOM ---
CM Note CM Note Notes: Lina Ham reports [employer] denied auth for inazt rehab, peer to peer number is [phone]; notified Hospitalist Sommer. Date Signed: 10/05/2017 04:29 PM Electronically Signed By:AVERY Sorto
[2017-10-05] MEDS: MONTELUKAST SODIUM 10 MG TAB PO SCH (18:09)
[2017-10-05] MEDS: MELATONIN 3 MG TAB PO SCH (22:12)
[2017-10-06] MEDS: oxyCODONE IR 5 MG TAB PO PRN ×3 (02:01→14:40)
[2017-10-06] MEDS: PREGABALIN 100 MG CAP PO SCH ×2 (06:33→18:17)
[2017-10-06] MEDS: METHOCARBAMOL 750 MG TAB PO PRN ×3 (06:33→23:22)
--- NOTE | 2017-10-06 07:39 | NEUSURGPN ---
Date of Surgery: 10/01/17 Post Op Day: 5 Assessment/Plan: Assessment: 72 yr old with history of L3-S1 fusion in 2013, presented to ER with urinary incontinence and anterior/quad pain bilaterally. S/P L1-2, L2-3 fusion with laminectomies and tie into existing hardware POD#4 Plan: -Neuro: Overall more awake today and pain improving. -MRI brain w/o evidence of stroke. Prefer no ASA. -H/H stable -Neurology on board for suspected TIA- MRI was negative for stroke. Appreciate neurology input -PT/OT - brace is not mandatory, for comfort only. -Pain management- limit narcs but ok to give robaxin prn and may help more with muscle spasms/leg pain -Lumbar xrays performed and show stable hardware placement -Will leave BLANCA in for now -OK to shower -Case management working on rehab options, patient is ok to discharge from our standpoint once a bed is available -Please call neurosurgery with any questions/concerns Discussed patient with Dr Pool Subjective: Doing well, sitting up in chair, leg pain improved Objective: AAOx3 NAD VSS MAEx4 Motor 5/5 BLE L elbow with significant bruising. R wrist with large scab +LT Neuro Check Frequency: per routine Urinary Catheter in Place: No - Physician Discussed Patient with : Yrn Patient Seen by : Yrn Neurosurgery Physical Exam - Vitals, I&O, Labs I and O 10/05/17 10/06/17 10/07/17 05:59 05:59 05:59 Intake Total 2200 Output Total 325 2890 Balance -325 -690 Intake: Oral (ml) 2200 Output: Urine (ml) 325 2750 Bedside Commode 325 2750 BLANCA Drain Output (ml) 140 #1 Left Back 140 Other: Intake Quantity Yes Yes Sufficient Number of Voids Bedside Commode 2 Number of Stools Bedside Commode 1 Vital Signs Temp Pulse Resp BP Pulse Ox 36.8 C 98 16 104/67 96 10/06/17 07:14 10/06/17 07:14 10/06/17 07:14 10/06/17 07:14 10/06/17 07:14 Laboratory Results 10/04/17 05:00 10/04/17 05:00 ICD10 Worksheet Patient Problems: Problems Problem Status Onset Lumbar canal stenosis Acute C. difficile diarrhea Acute 12/14/16 Chest pain Acute Hypertension Acute RAD (reactive airway disease) Acute Stenosis (acquired) of bladder neck or vesicourethral orifice Acute
--- NOTE | 2017-10-06 09:15 | WOCRNPDOC ---
WOCRN Advanced Assessment Note - Skin Integrity Problem, Advanced Assess Right Lower Arm Scab Dressing Type: Coban, Gauze Dressing Description: Clean/Dry, Intact Exudate Amount: None Exudate Characteristic(s): None Integumentary Issue Intervention: Dressing Changed, Hydrogel Applied Amy Wound Tissue: Ecchymotic, Swollen, Thin Amy Wound Swelling: Moderate (edema r/t IV infiltration) Wound Bed Color: Red Wound Bed Constitution: Red/[place] - Non Granular Tissue, De-roofed Serous Blister Site Odor: None Site Measurement - Head-to-Toe Length X Width X Depth (cm): 0.2cmx0.4cmx0.1cm Skin Integrity Problem Comment: Removed existing coban and gauze on RFA, as it was having a tourniquet-like effect on her R hand. Small, partial-thickness wound noted on RFA, in the middle of a flat de-roofed blister. Significant periwound edema, especially in R hand, residual from IV infiltration. Applied small Allevyn dressing to protect site. Wound care does not need to follow ongoing. Please reconsult w/ any additional concerns.
[2017-10-06] MEDS: ENOXAPARIN 40 MG/0.4 ML SYR SC SCH (09:22)
[2017-10-06] MEDS: DULoxetine 60 MG CAP PO SCH (09:22)
[2017-10-06] MEDS: PANTOPRAZOLE SODIUM 40 MG TAB PO SCH (09:22)
--- NOTE | 2017-10-06 14:38 | HOSPPROG ---
Hospitalist Progress Note Assessment/Plan: 72y female with back surgery. D/W CM. Reviewed with peer to peer doctor. # encephalopathy versus TIA- - symptoms mostly resolved - will get VITAMIN MANAGER eval and further cognitive therapy - MRIs negative -she has had similar symptoms postoperatively - appreciate neurology # lumbar fusion - POD #3 d/t cauda equina syndrome - post-op care per nsg -PT/OT -needs aggressive PT to return to baseline -inpt rehab #Left sided weakness -related to surgery - cont aggressive therapy # thrombocytopenia - resolved on recheck - lab error? # ABLA, post-op - transfuse 2U PRBC - Stable follow # tachycardia - likely d/t anemia - resolved # chronic resp failure - baseline 3L # hx temporal arteritis - no indication for steroids currently #Urinary retention - cont PVR -follow # htn - hold antihypertensives, blood pressure is little bit low # Right forearm wound -wound care ordered #Rotator cuff injury -difficult to use upper extremities -cont therapy and supportive care # hx burak danlos # pre-DM - glucs ok # obesity - BMI 43 # disposition -inpatient rehab in am -D/W inpt rehab, CM and [employer] physician Subjective: Tired after therapy. Pain controlled. Objective: Vital Signs Temp Pulse Resp BP Pulse Ox 36.8 C 98 16 104/67 96 10/06/17 07:14 10/06/17 07:14 10/06/17 07:14 10/06/17 07:14 10/06/17 07:14 Laboratory Results 10/04/17 05:00 10/04/17 05:00 10/05/17 10/06/17 10/07/17 05:59 05:59 05:59 Intake Total 2200 360 Output Total 325 2890 Balance -325 -690 360 - Physical Exam Constitutional: not in pain, chronically ill appearing, obese Eyes: PERRL, anicteric sclera, EOMI Ears, Nose, Mouth, Throat: moist mucous membranes, hearing normal, No oral thrush Cardiovascular: regular rate and rhythym, No JVD, No edema Respiratory: no respiratory distress, no rales or rhonchi, reduced air movement Gastrointestinal: normoactive bowel sounds, No tenderness, No ascites Skin: warm, normal color, No erythema Musculoskeletal: pain with ROM, muscular tenderness, abnormal gait, generalized weakness Neurologic: AAOx3, weakness Psychiatric: interacting appropriately, not anxious, not encephalopathic, thought process linear ICD10 Worksheet Patient Problems: Problems Problem Status Onset Stenosis (acquired) of bladder neck or vesicourethral orifice Acute Lumbar canal stenosis Acute RAD (reactive airway disease) Acute Hypertension Acute Chest pain Acute C. difficile diarrhea Acute 12/14/16
--- NOTE | 2017-10-06 14:51 | ASMTCMCOM ---
CM Note CM Note Notes: 10/06/2017 Case Management Note Met w/pt to discuss transportation options upon d/c tomorrow to [facility] Inpatient Rehab. Pt will require O2 at transport and has her own portable oxygen at home. Discussed two options. Option 1 involves her transporting her using her own O2. Option 2: case management to arrange for wheelchair transport with O2. Informed pt that she will need to pay privately for wheel chair transport. Pt wanted to discuss both options with her and will get back to case management with preferred choice. Case Management to follow. Date Signed: 10/06/2017 02:50 PM Electronically Signed By:Sonali Finnegan RN
--- NOTE | 2017-10-06 16:11 | ASMTCMCOM ---
CM Note CM Note Notes: Per Lina Ham pt needs to be at [facility] inpatient rehab no later that 1400 tomorrow as insurance auth will . Date Signed: 10/06/2017 04:10 PM Electronically Signed By:AVERY Sorto
[2017-10-06] MEDS: ACETAMINOPHEN 325 MG TAB PO PRN ×2 (16:44→23:22)
[2017-10-06] MEDS: MONTELUKAST SODIUM 10 MG TAB PO SCH (18:17)
[2017-10-06] MEDS: MELATONIN 3 MG TAB PO SCH (21:25)
[2017-10-06] MEDS: traMADol 50 MG TAB PO PRN (21:27)
[2017-10-07] MEDS: oxyCODONE IR 5 MG TAB PO PRN (01:03)
[2017-10-07] MEDS: traMADol 50 MG TAB PO PRN ×2 (04:00→11:17)
[2017-10-07] MEDS: ACETAMINOPHEN 325 MG TAB PO PRN (06:45)
[2017-10-07] MEDS: METHOCARBAMOL 750 MG TAB PO PRN ×2 (06:45→11:18)
[2017-10-07] MEDS: PREGABALIN 100 MG CAP PO SCH (06:45)
[2017-10-07 07:43] VITALS: BP 125/71; PULSE 90; RESP 16; TEMP 98.2; O2SAT 94
--- NOTE | 2017-10-07 07:46 | NEUSURGPN ---
Date of Surgery: 10/01/17 Post Op Day: 6 Assessment/Plan: Assessment: 72 yr old with history of L3-S1 fusion in 2013, presented to ER with urinary incontinence and anterior/quad pain bilaterally. S/P L1-2, L2-3 fusion with laminectomies and tie into existing hardware POD #6 Plan: -Neuro: Overall more awake today and pain improving with current pain strategy -MRI brain w/o evidence of stroke. Prefer no ASA -H/H stable -Neurology on board for suspected TIA- MRI was negative for stroke. Appreciate neurology input -PT/OT - brace is not mandatory, for comfort only -Pain management- limit narcs but ok to give robaxin prn and may help more with muscle spasms/leg pain -Lumbar xrays performed and show stable hardware placement -BLANCA to likely pull today -OK to shower -Case management working on rehab options, patient is ok to discharge from our standpoint once a bed is available -Please call neurosurgery with any questions/concerns -discussed patient with Dr Pool Subjective: Awake and alert. NAD. Pt with expected lower back pain. Legs feel better Objective: AAOx3 NAD VSS MAEx4 Motor 5/5 BLE L elbow with significant bruising. R wrist with large scab +LT Neuro Check Frequency: per routine Urinary Catheter in Place: No - Physician Discussed Patient with Dr.: Pool Neurosurgery Physical Exam - Vitals, I&O, Labs I and O 10/06/17 10/07/17 10/08/17 05:59 05:59 05:59 Intake Total 2200 360 Output Total 2890 50 70 Balance -690 310 -70 Intake: Oral (ml) 2200 360 Output: Urine (ml) 2750 Bedside Commode 2750 BLANCA Drain Output (ml) 140 50 70 #1 Left Back 140 50 70 Other: Intake Quantity Yes Yes Sufficient Number of Voids Bedside Commode 2 6 Toilet 3 Number of Stools Bedside Commode 6 Post Void Residual Scan Volume (ml) Toilet 28 Vital Signs Temp Pulse Resp BP Pulse Ox 36.8 C 90 16 125/71 H 94 10/07/17 07:42 10/07/17 07:42 10/07/17 07:42 10/07/17 07:42 10/07/17 07:42 Laboratory Results 10/04/17 05:00 10/04/17 05:00 ICD10 Worksheet Patient Problems: Problems Problem Status Onset Lumbar canal stenosis Acute C. difficile diarrhea Acute 12/14/16 Chest pain Acute Hypertension Acute RAD (reactive airway disease) Acute Stenosis (acquired) of bladder neck or vesicourethral orifice Acute
[2017-10-07] MEDS: ENOXAPARIN 40 MG/0.4 ML SYR SC SCH (09:33)
[2017-10-07] MEDS: PANTOPRAZOLE SODIUM 40 MG TAB PO SCH (09:33)
[2017-10-07] MEDS: DULoxetine 60 MG CAP PO SCH (09:33)
--- NOTE | 2017-10-07 12:18 | PDIAF ---
- Diagnosis Diagnosis: cauda equina Code Status: Full Code - Medication Management Discharge Medications: Medications to Continue on Transfer Budesonide/Formoterol 160/4.5 [Symbicort 160-4.5 Mcg Inh (*)] 1 puffs IH BID PRN 08/20/13 [Last Taken 08/20/13 08:20] DULoxetine [Cymbalta 60 MG (*)] 60 mg PO DAILY 08/20/13 [Last Taken 09/30/17] Diphenoxylate HCl/Atrop Sulf [Lomotil Tab (*)] 1 tab PO PRN PRN 08/20/13 [Last Taken Unknown] Hyoscyamine Sulfate [Levsin, Hyomax-Sl 0.125 mg (*)] 0.25 mg PO Q12H PRN [Last Taken Unknown] Montelukast Sodium [Singulair 10 mg (*)] 10 mg PO DAILY@1900 08/20/13 [Last Taken 04/06/16] Pregabalin [LYRICA] 200 mg PO BID@,19 08/20/13 [Last Taken 04/06/16 21:00] diphenhydrAMINE [Benadryl 25 MG (*)] 25 mg PO HS PRN 08/20/13 [Last Taken Unknown] Doxepin HCl [Sinequan 50 MG (*)] 50 - 100 mg PO DAILY PRN 04/04/16 [Last Taken Unknown] Cetirizine [ZyrTEC 10 mg (*)] 10 mg PO TID PRN 04/07/16 [Last Taken Unknown] Docusate Sodium [Colace 100 MG (*)] 100 mg PO BID PRN 04/07/16 [Last Taken Unknown] Lansoprazole [Prevacid] 30 mg PO DAILY 04/07/16 [Last Taken 09/30/17] Dupilumab [Dupixent] 300 mg SQ Q14D 09/30/17 [Last Taken 09/17/17] Hydroxyzine Pamoate [Vistaril] 25 - 100 mg PO Q6H PRN 09/30/17 [Last Taken Unknown] Valsartan/Hctz [Diovan Hct 80/12.5 mg (*)] 1 each PO DAILY 09/30/17 [Last Taken 09/30/17] Acetaminophen [Tylenol 325mg (*)] 650 mg PO Q4HRS PRN tab 10/07/17 [Last Taken Unknown] Albuterol [Proventil Neb] 3 ml IH Q2HRS PRN deyvial 10/07/17 [Last Taken Unknown] Enoxaparin [Lovenox 40 MG (*)] 40 mg SC DAILY #10 syr 10/07/17 [Last Taken Unknown] Melatonin [Melatonin 3 MG (*)] 1.5 mg PO HS tab 10/07/17 [Last Taken Unknown] Methocarbamol [Robaxin 750 mg (*)] 750 mg PO QID PRN #60 tab 10/07/17 [Last Taken Unknown] oxyCODONE IR [Oxycodone Ir (*)] 5 mg PO Q4HRS PRN #60 tab 10/07/17 [Last Taken Unknown] traMADol [Ultram 50 mg (*)] 50 mg PO Q6 PRN #60 tab 10/07/17 [Last Taken Unknown ] Discharge Medications: Refer to the Discharge Home Medication list for PRN reason. PICC Care - Routine: N/A - Orders Services needed: Registered Nurse, Physical Therapy, Occupational Therapy, Speech Language Pathologist Diet Texture: Regular Texture Diet, Thin Liquids, Meds Whole w/Liquids [place]: Not applicable Additional: PVR - Labs/Radiology HCT/HGB Date: 10/16/17 - Follow Up Care Current Providers and Referrals: Vnaia Cummings MD [Primary Care Provider] - As per Instructions Jonathan Pool MD [Medical Doctor] - (follow up in 2 weeks)
--- NOTE | 2017-10-07 14:11 | ASMTLACE ---
LACE Length of stay for Answers: 4-6 days current admission Acuity / Level of Answers: Yes Care: Did the patient have an inpatient admission? Comorbidities - select Answers: Chronic pulmonary disease all that apply # of Emergency department Answers: 1-2 visits in the last 6 months Score: 10 Date Signed: 10/07/2017 02:10 PM Electronically Signed By:AVERY Clarke
--- NOTE | 2017-10-07 15:00 | ASDISCHSUM ---
Discharge Information Plan Status:Inpatient Rehab Medically Cleared to Leave:10/06/2017 Discharge Date:10/07/2017 01:00 PM CM D/C Disposition:[facility] Acute ADT D/C Disposition:[facility] IP Projected Discharge Date:10/07/2017 11:00 AM Transportation at D/C:Family Discharge Delay Reason: Follow-Up Date:10/07/2017 11:00 AM Discharge Slot: Final Diagnosis:Back Pain: L1-2, 2-3 lami Placement Information Referral Type:*Shelter/SNF Referral ID:[id number] Provider Name: Address 1: Phone Number: Address 2: Fax Number: City: Selection Factors: State: Referral Type:Acute Care Referral ID:[id number] Provider Name: Address 1: Phone Number: Address 2: Fax Number: City: Selection Factors: State: Referral Type:Acute Care Referral ID:[id number] Provider Name: Address 1: Phone Number: Address 2: Fax Number: City: Selection Factors: State: Patient Contact Information Contact Name:GILBERT Relationship: Address:[address] City:[place] Alternate Phone: State/Zip Code:[place] [address] Email: Financial Information Financial Class:Medicare Advantage Plans Primary Plan Desc:NICKI MEDICARE ADV Primary Plan Number:[id number] Secondary Plan Desc: Secondary Plan Number: Assessment Information [facility] CM Progress Note CM Note CM Note Notes: Reviewed chart amnd discussed w/RN. Pt in surgery today. She lives at home w/. CM will follow post-op to determine if any dc needs. Date Signed: 10/01/2017 09:52 AM Electronically Signed By:Gaby Lyon RN [facility] CM Progress Note CM Note CM Note Notes: L1-2, 2-3 Lami, Stroke alert today, Bipap at night. Therapies recommending SNF Rehab. Date Signed: 10/02/2017 03:38 PM Electronically Signed By:Lovely Epps LCSW [facility] CM Progress Note CM Note CM Note Notes: Spoke to patient and regarding SNF Rehab. They are interested in [facility]. Referral sent. Date Signed: 10/03/2017 11:12 AM Electronically Signed By:Lovely Epps LCSW [facility] CM Progress Note CM Note CM Note Notes: PT/OT recommending inpt rehab today. Met w/pt and and they are very interested in [facility]. Discussed w/Lina and she will submit for auth to pt's insurance co. Updated Josefina at [facility] that we are trying for [facility] inpt rehab first. Discussed with RN and Hospitalist. CM will follow. Date Signed: 10/05/2017 12:21 PM Electronically Signed By:aGby Lyon RN [facility] CM Progress Note CM Note CM Note Notes: Lina Ham reports Nicki arzola auth for [facility] rehab, peer to peer number is [phone]; notified Hospitalist Sommer. Date Signed: 10/05/2017 04:29 PM Electronically Signed By:AVERY Sorto LACE LACE Length of stay for Answers: 4-6 days current admission Acuity / Level of Answers: Yes Care: Did the patient have an inpatient admission? Comorbidities - select Answers: Chronic pulmonary disease all that apply # of Emergency department Answers: 1-2 visits in the last 6 months Score: 10 Date Signed: 10/07/2017 02:10 PM Electronically Signed By:AVERY Clarke [facility] CM Progress Note CM Note CM Note Notes: 10/06/2017 Case Management Note Met w/pt to discuss transportation options upon d/c tomorrow to [facility] Inpatient Rehab. Pt will require O2 at transport and has her own portable oxygen at home. Discussed two options. Option 1 involves her transporting her using her own O2. Option 2: case management to arrange for wheelchair transport with O2. Informed pt that she will need to pay privately for wheel chair transport. Pt wanted to discuss both options with her and will get back to case management with preferred choice. Case Management to follow. Date Signed: 10/06/2017 02:50 PM Electronically Signed By:Sonali Finnegan RN [facility] CM Progress Note CM Note CM Note Notes: Edward Ham pt needs to be at [facility] inpatient rehab no later that 1400 tomorrow as insurance auth will . Date Signed: 10/06/2017 04:10 PM Electronically Signed By:AVERY Sorto Case Management Discharge Plan Note Case Management Discharge Discharge Order Complete? Answers: Yes Patient to Obtain Answers: Other Notes: IR Medications Transportation Arranged Answers: Family/Friends Discharge Comments Notes: Pt discharged to [facility] Inpt Rehab today. Pt's transported her. IM signed, copy to pt and in chart. Faxed d/c orders. Date Signed: 10/07/2017 02:56 PM Electronically Signed By:AVERY Clarke Intervention Information
--- NOTE | 2017-10-07 23:31 | GDS ---
[f rep st] DISCHARGE SUMMARY DISCHARGE DIAGNOSES: 1. Cauda equina. 2. Urinary incontinence. 3. Morbid obesity. 4. Encephalopathy. 5. Left-sided weakness. 6. Thrombocytopenia. 7. Acute blood loss anemia. 8. Tachycardia. 9. Chronic respiratory failure. 10. Hypertension. 11. History of rotator cuff injury. CONSULTATIONS: Neurosurgery. PHYSICAL EXAM: GENERAL: The patient is alert. VITAL SIGNS: Afebrile at 36.8, pulse is 90, respira tory rate 16, blood pressure 125/71. She is saturating 94% on 3 L. I have seen and evaluated the petty leo on the day of discharge. HOSPITAL COURSE: The patient is a 72-year-old female who presented to the emergency room with compla ints of urinary incontinence. She was evaluated and diagnosed with: 1. Cauda equina syndrome: During this hospitalization, she received a lumbar fusion and surgical in tervention performed by Neurosurgery. She is responding well, however, requires aggressive physical therapy and occupational therapy to return to her baseline without residual deficits. 2. Left-sided weakness: This is related to the patient's acute condition, and will require aggressi ve therapy in the outpatient setting. 3. Encephalopathy: This is likely multifactorial. The patient is almost returned to her baseline, however, recommended that she continue cognitive therapy at the time of disposition. 4. Thrombocytopenia: This has resolved. 5. Acute blood loss anemia: She did require transfusion of 2 units of packed red blood cells during this hospital course. She is stable. Follow her hemoglobin and hematocrit outside the hospital. 6. Tachycardia: This has resolved, likely secondary to the patient's acute anemia. 7. Chronic respiratory failure: She is at her baseline 3 L of oxygen. 8. Hypertension: She has been hypotensive during this hospitalization, and her blood pressures have been held. These may need to be re-initiated in the future. 9. History of rotator cuff injury: This is complicating her recovery and limiting her upper extremi ty use. She will continue with physical therapy and aggressive therapies outside the hospital. 10. Obesity. DISPOSITION: The patient will be discharged to inpatient rehab for further rehabilitation and manage ment. She requires significant strength and conditioning to return to her previous baseline. Follow up will be with Dr. Pool, her neurosurgeon, as well as Dr. Vania Cummings, her primary care provider. DISCHARGE MEDICATIONS: Please refer to EMR form. New medications include: Lovenox, Robaxin, Ultram . TIME SPENT: I spent greater than 35 minutes in the care, coordination, and management of this patien t's disposition. /[id number]/MODL
--- NOTE | 2017-10-08 17:19 | GCON ---
[f rep st] CONSULTATION PULMONARY/CRITICAL CARE CONSULTATION. DATE OF CONSULTATION: 10/02/2017 REFERRING PHYSICIAN: Arash Jarquin MD REASON FOR REFERRAL: Evaluation and management of encephalopathy, anemia. HISTORY: The patient is a 72-year-old woman who has a prior history of a back fusion and presented t [facility] on September 30 with severe lumbar back pain and sciatica, with bowel and bladder inco ntinence. She underwent an urgent lumbar fusion on 10/01. She did fairly well immediately postopera tively but has not really woken up after anesthesia. She is extubated without difficulty but is cont inuing to use oxygen which she uses chronically. She apparently had some focal symptoms this morning , with concern for TIA, but these improved fairly rapidly. PAST MEDICAL HISTORY: 1. Chronic respiratory failure, on home oxygen, as well as prescribed BiPAP, which she has not been using. The cause for her underlying mild chronic hypoxemic respiratory failure is unknown, apparentl y even after evaluation at [facility]. 2. Hypertension. 3. Hyperlipidemia. 4. Fibromyalgia. 5. Obesity. 6. C difficile colitis in April 2016. MEDICATIONS: Medications at the time of admission were reconciled; see hospital reconciliation form. ALLERGIES: Latex, hydrocodone, and sulfa. SOCIAL HISTORY: The patient is and lives with her . She does not drink or smoke. FAMILY HISTORY: Unremarkable. REVIEW OF SYSTEMS: Unobtainable, as the patient is still quite somnolent and not responding to quest ions. PHYSICAL EXAMINATION: GENERAL: The patient responds to voice but does not answer questions reliably and only intermittently and impersistently follows commands. VITAL SIGNS: Blood pressure 116/52, w ith a heart rate of 111. She is afebrile. Oxygen saturations are 95% on 2 L. HEENT: Normocephalic and atraumatic. No icterus. NECK: No JVD. Trachea is midline. CHEST: Clear to auscultation. C ARDIAC: Regular rate and rhythm without murmur. ABDOMEN: Soft and nontender. Bowel sounds are pre sent. EXTREMITIES: No clubbing, cyanosis, or edema. NEURO: The patient is somewhat somnolent but arousable. She is able to move all extremities but does not reliably follow commands. ASSESSMENT: 1. Status post L1 to L3 fusion/hardware. The patient has had some complaints of postoperative site pain, but she is on minimal medications and seems to be fairly comfortable currently. 2. Anemia. This is likely due to perioperative blood loss, as well as possibly a component of chron ic anemia. She is normocytic. There are no signs of active bleeding. 3. Encephalopathy. She apparently had some aphasia this morning, but that is now improved, although she is quite lethargic. I think her encephalopathy is likely related to delayed metabolism of her a nesthetics, as well as metabolic and her pain and other medications. 4. Right wrist IV infiltration. This occurred perioperatively, and there was some infiltration of p ropofol. Clinically stable, although she still has some discomfort. RECOMMENDATIONS: 1. Transfuse packed red blood cells and monitor H and H. 2. Minimize narcotics and other medications that could affect her cognition. 3. Closely monitor her right wrist IV. 4. Infiltration site. 5. Continue supplemental oxygen as needed. LABS AND X-RAYS: White blood count is 12.5, with a hemoglobin of 7.3, down from 10.2. The MCV is 97 . Her chemistry group is unremarkable. A CT scan of the head shows no acute findings. Images revie wed by me. /[id number]/MODL
== END 2017-10-07 13:00 | DRG 28 ==
LOC: F3N 20:33 → F2N 10-01 16:52 → F3N 10-04 17:24
PROVIDERS: ADMIT Internal Medicine; ATTEND Internal Medicine
DX: G83.4 Cauda equina syndrome (principal); G93.49 Other encephalopathy; D62 Acute posthemorrhagic anemia; J96.10 Chronic respiratory failure, unspecified whether with hypoxia or hypercapnia; Z68.41 Body mass index [BMI] 40.0-44.9, adult; M48.061 Spinal stenosis, lumbar region without neurogenic claudication; R32 Unspecified urinary incontinence; E66.01 Morbid (severe) obesity due to excess calories; D69.6 Thrombocytopenia, unspecified; R00.0 Tachycardia, unspecified; I10 Essential (primary) hypertension; G89.29 Other chronic pain; E78.5 Hyperlipidemia, unspecified; Z98.1 Arthrodesis status
CPT/HCPCS: 92507-GN; 92523-GN; 92610-GN; 96374; 97110-GP; 97116-GP; 97161-GP; 97166-GO; 97530-GO; 97530-GP; 97535-GO; A9585; C1713; C1751; C1762; G8978-GP-CK; G8979-GP-CJ; G8987-GO-CM; G8988-GO-CJ; J0171; J0690; J1170; J1650; J2250; J2270; J2370; J2405; J2704; J2780; J3010; J3370; J7060; P9016; P9041; Q9967

== ENCOUNTER 2017-10-06 15:16 | Inpatient (IN) | payer OTHER ==
[2017-10-07] MEDS ORDERED: HYOSCYAMINE SULFATE 0.125 MG TAB PO PRN (14:25)
[2017-10-07] MEDS ORDERED: DOCUSATE SODIUM 100 MG CAP PO PRN (14:25)
[2017-10-07] MEDS ORDERED: CETIRIZINE 10 MG TAB PO PRN (14:25)
[2017-10-07] MEDS ORDERED: oxyCODONE IR 5 MG TAB PO PRN (14:25)
[2017-10-07] MEDS ORDERED: ALBUTEROL 3 ML DEYVIAL IH PRN (14:25)
[2017-10-07] MEDS ORDERED: ACETAMINOPHEN 325 MG TAB PO PRN (14:25)
[2017-10-07] MEDS ORDERED: DOXEPIN HCL 50 MG CAP PO PRN (14:25)
[2017-10-07] MEDS ORDERED: DIPHENOXYLATE/ATROPINE LOMOTIL 1 TAB PO PRN (14:25)
[2017-10-07] MEDS ORDERED: DUPILUMAB 300 MG SQ SCH (14:30)
--- NOTE | 2017-10-07 14:52 | PDGENHP ---
History and Physical History and Physical: Post Admission Physician Evaluation and Rehabilitation Treatment Plan Date of Admission - 10/07/2017 Date of Evaluation - 10/07/2017 Time of evaluation 14:30 Referring facility - [facility] Referring Physician - Dr. Peterson Impairment Group/Etiologic Diagnosis- 4.111/Non-traumatic Spinal Cord Dysfunction Date of onset - 07/14/2017 Rehabilitation Diagnosis - Cauda Equina Consulting Physicians - Dr. Gerald Pool -Neurosurgery. Dr. Delgado - Neurology Date of Surgery - 10/01/2017 CC: Hoping to get my pain under control HPI: Ms. Murray is a 72 y/o female who was recently admitted at [facility] for new onset of low back pain and associated bowel/bladder changes. She reports that she didnt have recent injury/accident. Her increased pain started back in July 2017 - she was seen by her previous NSG for intervention but was told she'd be too high risk for surgery intervention for L2 injury. She was referred to Pain management with Dr. Jeong.- He performed a Kyphoplasty in August for ongoing pain although there was no relief with this intervention. Also had B TFESI without benefit. Was receiving Pain meds to manage and noticed that was starting to have changes with bowel/bladder and ongoing pain. Questioned if this was secondary to the percocet vs other. Pt was seen in the ER on 09/30/17 and had a new lumbar MRI demonstrating L2 insufficiency fracture with associated disc protrusion at L2/3 with severe canal and lateral recess stenosis at his level. She was seen by NSG given the new findings as well as the neurologic changes and had surgery on 10/01/17. They completed an L1-L3 laminectomy and fusion that tied into her previous fusion (had L3-S1 fusion in 2012). Pt noted to have slurred speech/decreased attention after surgery on 10/02/17 CTA head and neck was negative for stenosis , TTE without cardioembolic source seen. Was kept on telemetry x24hrs without any arrhythmia noted. Had an MRI of the brain on 10/04 without evidence of infarct or other acute process does have periventricular and subcortical white matter disease. Neurology felt that no further concern and likely more consistent toxic metabolic encephalopathy s/p recent surgery and multiple medications. NSG requesting not ASA given recent extensive surgical intervention. Pt has demonstrated ongoing gains/improvement. Otherwise hospital course complicated by pain , urinary retention and acute blood loss. She also had an a right forearm infiltrate that has current wound and covering with dressing. Has received 2UPRBC with stable f/u labs although does have mildly elevated WBC. Per discussion with patient she reports that she has seen a audio video tech about the leukocytosis and was thought to be secondary to her years of prednisone use for allergies and asthma. Pt has had low dose prednisone on/off for many years with many intermittent bursts. Pt also reporting that had a fall this morning when she was in the bathroom - did hit her left flank when she was cathching herself - increased pain although no change in respiratory function Precautions- Pt is a fall risk and risk for skin breakdown Active Comorbidities: Tier 3 - morbid Obesity ROS: Negative for - fever/chills, vision changes, GRANT, swallowing problems, sore throat, rhinorrhea, chest pain, SOB, abdominal pain. Positive for diarrhea ( thinks from new laxatives), pain, fall, Changes in bowel/bladder function Allergies: Sulfa Latex Tomatoes, chili powder, Gluten Medications On admission: Tylenol 650mg q4hr prn pain Lovenox 40mg subq qday Oxycodone 5mg po q4hr prn pain Albuterol 3ml IH q2hrs prn SOB Symbicort 160/4.5 mdg 1 puff BID PRN sob Zyrtec 10mg PO TID PRN allergies Lomotil 1 tab PO Prn Diarrhea Colace 100mg PO BID prn constipation Doxepin 50 mg PO daily PRN itching Cymbalta 60mg PO Daily Diovan 80/12.5mg 1 tab po daily hyomax 0.24mg po q12hr prn cramping prevacid 30mg po Daily Melatonin 3mg po qhs Robaxin 750mg PO qid Prn spasms Dupilumab 300mg PO [id number] Lyrica 200mg PO BID Tramadol 50mg [id number] Prn Pain Singulair 10mg PO qday PSH: Rotator cuff repair - L in 2007 and right in 2009 - still has significant pain and limitations Bilateral total knees - 2009 L3-S1 fusion surgery - 2012 Appendectomy Cholecystectomy PMH fibromyalgia HTN obesity eczema asthma pre diabetes chronic respiratory failure on home oxygen temporal arteritis C diff bowel obstruction spinal fusion N. Bladder N. bowel SH: Pt lives in a 3 story home with her . they are both retired. the master bedroom is upstairs - Pt has been crawling up the stairs to get up/down. Bathrooms on all levels although full baths on upper/lower levels. No tobacco use, no illicit drug use. FH: Father -Heart disease/emphysema Mother - Dementia Labs CBC WBC 13.71 (anywhere from 8.5-16.11), h/h 8.6/25.7, plt 211 BMP NA 139, K 3.7, bun 14, cr 0.6, Ca 9.0 Radiology report MRI lumbar spine 1. Interval development of disc extrusion extending superiorly left posterior paracentral location at L1-2 contributing to severe spinal stenosis and left lateral recess stenosis along with neuroforaminal stenosis. There is compression upon the conus with surrounding contrast enhancement related to inflammation 2. Previous fusion from L3 through S1 3. Persistent severe spinal stenosis at l2-l3. 4. Edema and oblique fraction suspected through themed body of L2 with associated enhancement 5. Subluxations once again noted at l1-2, l2-3, and l3-4 measuring 3-4mm PE: Vital signs - BP 108/65, HR 88, RR 17 @95% on RA, T 36.3 Gen - Appears to be in mild distress - pleasant HEENT - no obvious trauma to her head. Pupils are equal and reactive CV - RRR Rest - Decreased at bilateral bases - no ronchi or crackles nor wheeze appreciated - pt wearing her NC at 3L Abd - Obese - soft, nt, nd Extremity - does have bilateral LE edema - symmetric Skin - Thin skin - has area of small blister on the dorsal aspect of the right forearm- Area of mild discoloration extending out past this -have marked to track. - per patient it is much better than prior MSK - limited ROM of bilateral shoulders - not able to acheive 90degrees of shouder abd Neuro - Alert - oriented. intermittent word finding difficulty. Strength RLE - hf 4/5, ke 5/5, df 4/5, LLE - hf 3/5, ke 4+/5, Df 4/5, RUE - ef 4/5, ee 4/5, we 4+/5, anjelica 4+/5, LUE - ef 4/4, ee 4/5, we 4/5, anjelica 4+/5 Psych - euthymic- somewhat frustrated with pain and functional changes - has good supportive spouse. Prior level of function: pt was independent with stairs negotiation, mobility, self cares, indoor ambulation and functional cognition. Pt did require some assistance for house cleaning, cooking, shopping secondary to back pain and shoulder function Current level of function = Per preadmission screen Grooming- Set up from a seated position Bathing - Max/mod A Dressing - Max A Toileting - Mod A for transfers Balance - Torey Bed mobility - Torey Transfers - ModA Ambulation - 30 feet with FWW with Mod A Cognition - moderate impairment in attention, memory, problem solving Per today's exam - there are no significant hanges from the preadmission screen Assessment: Ms. Murray is a 72 y /o female with prior h/o low back pain and fusion with new onset of LE weakness and bowel/bladder changes. Found to have new insufficiency fx at L2 with severe lumbar stenosis most likely consistent with cauda equina presentation. S/p Surgical decompression and fusion on by Dr. Pool. Pt's goal is to be able to return back home and be good enough that could back out with friends for lunch outings again. Pain has been a big limiting factor and likely will be somewhat difficult to control although with the fusion surgery/stability hopeful that this will allow better management of pain. It is anticipated that patient should be I/Vanessa for basic ADL function including dressing, toileting, transfers and short distance ambulation. Will likely need assistance for stair negotiation as well as community distance ambulation. May require supervision with bathing. She will have PT/OT/SOFT TILE SETTER for 60minutes per day per discipline for 5-7 days per week. Expected duration of stay is 14-18 days. It is anticipated that at time of of discharge pt will likely benefit from home health services including PT/OT Plan: #Cauda equina with BLE weaknes - Pt will benefit from PT/OT involvement to optimize mobility and activities of daily living #Non traumatic SCI /Severe lumbar stenosis s/p surgical fusions - Pt with f/u xray after surgery demonstrating stability - will have f/u with NSG after d/c #Hypokalemia - Will continue monitor - did have supplementation prior to admission and had resolution #Urinary retention/N.Bladder - Will have Rn provide PVR to determine bladder function. Pt reporting frequent need to urinate - Has been continent as of recent after the surgery #Acute Blood loss anemia - S/p blood transfusion - will continue to monitor especially now that on lovenox for ppx. #Somatic Pain - acute on chronic - This will be difficult to manage given patient sensitivity to medication as well as chronic nature of the pain - Continue prn oxycodone/tramadol/tylenol - Will add lidoderm patch for left flank in area where patient hit when she fell #Encephalopathy - improving - Neurology involved for concern of TIA/Stroke- Workup negative - Likely consistent with anesthesia/pain med involvement. - Monitor closely especially as adjusting pain medications - SOFT TILE SETTER to evaluate and provide support for strategies and optimize recovery #Chronic Oxygen requirement - Utilizes 3L at baseline. - continues on the same currently - Order for IS to prevent atelectasis - pt has many risk factors with recent surgery and pain from recent fall #HTN - Continue on home dose/medication - will monitor to assure does go too low w #Right Forearm Wound - Prior to admission - 2/2 infiltrated IV - no active signs of infection and per patient is improving - RN order to keep cover to prevent friction - have outlined area of discoloration to monitor - no pain per patient #Asthma - long standing problem - PRN inhalers provided - will keep patient on current active allergy med #Bowel Management - Query N.bowel presentation pt with constipation until yesterday after many laxative - Will adjust during stay to optimize bowel program # Prophylaxis - Pt is high risk for DVT given age, Obesity and immobility. Will continue Lovenox until mobility improves
--- NOTE | 2017-10-07 16:02 | PDOREHIP ---
Admission [facility] - Admission - 3 Day Assessment Period Admission Date/Day 1: 10/07/17 Day 2: 10/08/17 Day 3: 10/09/17 - Active Diagnoses Comorbidities and Co-existing Conditions at Admission: 93093. None of the Above - Skin Conditions Unhealed Pressure Ulcer (1 or more/Stage 1 or >)-Admission: 0. No (Does have right forearm wound from IV infiltrate)
[2017-10-07] MEDS: MONTELUKAST SODIUM 10 MG TAB PO SCH (18:51)
[2017-10-07] MEDS: PREGABALIN 50 MG CAP PO SCH (18:51)
[2017-10-07] MEDS ORDERED: MONTELUKAST SODIUM 10 MG TAB PO SCH (19:00)
[2017-10-07] MEDS ORDERED: NON-FORMULARY NEW DRUG (Pregabalin [Lyrica] 200 MG) PO SCH (19:00)
[2017-10-07] MEDS: traMADol 50 MG TAB PO PRN (20:20)
[2017-10-07] MEDS: MELATONIN 3 MG TAB PO SCH (21:37)
[2017-10-07] MEDS: NYSTATIN POWDER 15 GM BTL TP PRN (21:52)
[2017-10-07] MEDS: oxyCODONE IR 5 MG TAB PO PRN (22:29)
[2017-10-08] MEDS: PATCH REMOVAL 1 EA PATCH TD SCH ×2 (00:22→19:58)
[2017-10-08] MEDS: LIDOCAINE 5% 1 EA PATCH TD SCH ×2 (00:22→09:53)
[2017-10-08] MEDS: oxyCODONE IR 5 MG TAB PO PRN ×4 (02:48→21:35)
[2017-10-08] MEDS: traMADol 50 MG TAB PO PRN ×3 (05:38→20:54)
[2017-10-08] MEDS: PREGABALIN 50 MG CAP PO SCH ×2 (06:35→18:33)
[2017-10-08 07:56] LABS: PLATELET COUNT 327 10^3/uL (150-400)
[2017-10-08] MEDS ORDERED: DUPILUMAB 300 MG SQ SCH (09:00)
[2017-10-08] MEDS ORDERED: LANSOPRAZOLE SUSP 3 MG/ML UDSYR (Peds) PO SCH (09:00)
[2017-10-08] MEDS ORDERED: LANSOPRAZOLE SUSP 30MG/10ML UDSYR (Adult) TUBE SCH (09:00)
--- NOTE | 2017-10-08 09:50 | SOAPPROG ---
SOAP Progress Note Assessment/Plan: Assessment/Plan: Assessment: Ms. Murray is a 72 y /o female with prior h/o low back pain and fusion with new onset of LE weakness and bowel/bladder changes. Found to have new insufficiency fx at L2 with severe lumbar stenosis most likely consistent with cauda equina presentation. S/p Surgical decompression and fusion on by Dr. Pool. Plan: #Cauda equina with BLE weaknes - Pt will benefit from PT/OT involvement to optimize mobility and activities of daily living #Non traumatic SCI /Severe lumbar stenosis s/p surgical fusions - Pt with f/u xray after surgery demonstrating stability - will have f/u with NSG after d/c #Hypokalemia - Will continue monitor - did have supplementation prior to admission and had resolution #Urinary retention/N.Bladder - Will have Rn provide PVR to determine bladder function. Pt reporting frequent need to urinate - Has been continent as of recent after the surgery #Acute Blood loss anemia - S/p blood transfusion - will continue to monitor especially now that on lovenox for ppx. #Somatic Pain - acute on chronic - This will be difficult to manage given patient sensitivity to medication as well as chronic nature of the pain - Continue prn oxycodone/tramadol/tylenol - Will add lidoderm patch for left flank in area where patient hit when she fell #Encephalopathy - improving - Neurology involved for concern of TIA/Stroke- Workup negative - Likely consistent with anesthesia/pain med involvement. - Monitor closely especially as adjusting pain medications - ADOPTION MANAGER to evaluate and provide support for strategies and optimize recovery #Chronic Oxygen requirement - Utilizes 3L at baseline. - continues on the same currently - Order for IS to prevent atelectasis - pt has many risk factors with recent surgery and pain from recent fall #HTN - Continue on home dose/medication - will monitor to assure does go too low w #Right Forearm Wound - Prior to admission - 2/2 infiltrated IV - no active signs of infection and per patient is improving - RN order to keep cover to prevent friction - have outlined area of discoloration to monitor - no pain per patient #Asthma - long standing problem - PRN inhalers provided - will keep patient on current active allergy med #Bowel Management - Query N.bowel presentation pt with constipation until yesterday after many laxative - Will adjust during stay to optimize bowel program #Falls - - Had a fall just prior to admission - no change in neurologic status - PT/OT to provide appropriate equipment and training to prevent falls - Pt educated on calling for RN's for assistance with all transfers # Prophylaxis - Pt is high risk for DVT given age, Obesity and immobility. Will continue Lovenox until mobility improves Today's Updates: Did change oxycodone to 2.5mg given patient feeling a little too foggy with the 5mg dosing - felt that took the edge of but didn't knock her out too bad. Did have the lidoderm patch placed last night- will make sure this is placed tonight. We also added non-pharm options such as heat/ice to manage pain while reducing pharm. Pt working with ADOPTION MANAGER for cognitive screening. Nutrition provided support for pt's allergies with regards to food choices. Pt Still with increased frequency of urination overnight - Per RN - PVR's <70 and occasional 0. Likely patient is diuresis after significant fluid management perioperatively. No signs/symptoms of infection 10/08/17 09:42 Subjective: Feeling a little better today - no new neurologic concerns. Was continent overnight although did feel that had to get up on several occasions to urinate. No associated fevers/chills, burning with urination or other infectious symptoms. Reported that the reduced dose of oxy was helpful while decreasing some of the "foggy" side effects. Objective: Vital Signs Temp Pulse Resp BP Pulse Ox 37.1 C 93 18 106/60 95 10/08/17 06:29 10/08/17 06:29 10/08/17 06:29 10/08/17 06:29 10/08/17 06:29 Laboratory Results 10/08/17 06:15 10/07/17 10/08/17 10/09/17 05:59 05:59 05:59 Intake Total 540 Output Total 1650 300 Balance -1110 -300 Physical Exam - Physical Exam General Appearance: alert, no apparent distress EENT: PERRL/EOMI Respiratory: lungs clear, normal breath sounds Cardiac/Chest: regular rate, rhythm Abdomen: normal bowel sounds, non-tender Skin: other (Right forearm - No new changes - dressing in place - discoloration within outlined area) Extremities: other (Swelling of the RUE - into the hand - Pt reporting improvement from prior after infiltrate. Continue to monitor) Neuro/Psych: alert, normal mood/affect ICD10 Worksheet Patient Problems: Problems Problem Status Onset C. difficile diarrhea Acute 12/14/16 Chest pain Acute Hypertension Acute Lumbar canal stenosis Acute RAD (reactive airway disease) Acute Stenosis (acquired) of bladder neck or vesicourethral orifice Acute
[2017-10-08] MEDS: DULoxetine 60 MG CAP PO SCH (09:53)
[2017-10-08] MEDS: ENOXAPARIN 40 MG/0.4 ML SYR SC SCH (09:53)
[2017-10-08] MEDS: VALSARTAN/HCTZ 80-12.5MG TAB PO SCH (09:53)
[2017-10-08] MEDS: LANSOPRAZOLE SUSP 30MG/10ML UDSYR (Adult) PO SCH (09:54)
[2017-10-08] MEDS: NYSTATIN POWDER 15 GM BTL TP PRN (09:58)
[2017-10-08] MEDS: MONTELUKAST SODIUM 10 MG TAB PO SCH (18:33)
[2017-10-08] MEDS: MELATONIN 3 MG TAB PO SCH (19:48)
[2017-10-08] MEDS: METHOCARBAMOL 750 MG TAB PO PRN (21:55)
[2017-10-08] MEDS ORDERED: oxyCODONE IR 5 MG TAB PO PRN (23:28)
[2017-10-09] MEDS: traMADol 50 MG TAB PO PRN ×3 (02:47→15:57)
[2017-10-09] MEDS: PREGABALIN 50 MG CAP PO SCH ×2 (07:58→18:00)
[2017-10-09] MEDS: LANSOPRAZOLE SUSP 30MG/10ML UDSYR (Adult) PO SCH (07:58)
[2017-10-09] MEDS: VALSARTAN/HCTZ 80-12.5MG TAB PO SCH (07:58)
[2017-10-09] MEDS: DULoxetine 60 MG CAP PO SCH (07:58)
[2017-10-09] MEDS: LIDOCAINE 5% 1 EA PATCH TD SCH ×2 (07:59→10:43)
[2017-10-09] MEDS: oxyCODONE IR 5 MG TAB PO PRN ×4 (08:29→21:26)
[2017-10-09] MEDS: METHOCARBAMOL 750 MG TAB PO PRN (08:30)
--- NOTE | 2017-10-09 09:32 | SOAPPROG ---
SOAP Progress Note Assessment/Plan: Assessment: Ms. Murray is a 72 y /o female with prior h/o low back pain and fusion with new onset of LE weakness and bowel/bladder changes. Found to have new insufficiency fx at L2 with severe lumbar stenosis most likely consistent with cauda equina presentation. S/p Surgical decompression and fusion on 10/01/[address] Pool. Plan: #Cauda equina with BLE weaknes - Pt will benefit from PT/OT involvement to optimize mobility and activities of daily living #Non traumatic SCI /Severe lumbar stenosis s/p surgical fusions - Pt with f/u xray after surgery demonstrating stability - will have f/u with NSG after d/c # Right groin/thigh pain * Hip XR without arthritis or fracture. * D/W Neurosurgery, Dr. Pool, 10/09/2017. Hold on further imaging at present. * Increased oxycodone from 2.5 mg Q 4 hr to 2.5-5 mg q.3 hours p.r.n. Increase tramadol to 100 mg q.6 hours scheduled. Schedule seated minute fen 650 mg q.6 hours. Advised to not use methocarbamol unless she clearly has muscle spasm, as she is concerned about sedating effects of pain medications. #Hypokalemia - Will continue monitor - did have supplementation prior to admission and had resolution #Urinary retention/N.Bladder? Urinary incontinence, - PVR insignificant. * No S/Sx UTI. #Acute Blood loss anemia - S/p blood transfusion - will continue to monitor especially now that on lovenox for ppx. #Somatic Pain - acute on chronic - This will be difficult to manage given patient sensitivity to medication as well as chronic nature of the pain - Continue prn oxycodone/tramadol/tylenol - Will add lidoderm patch for left flank in area where patient hit when she fell #Encephalopathy - improving - Neurology involved for concern of TIA/Stroke- Workup negative - Likely consistent with anesthesia/pain med involvement. - Monitor closely especially as adjusting pain medications - GRAPE PICKER to evaluate and provide support for strategies and optimize recovery #Chronic Oxygen requirement - Utilizes 3L at baseline. - continues on the same currently - Order for IS to prevent atelectasis - pt has many risk factors with recent surgery and pain from recent fall #HTN - Continue on home dose/medication - will monitor to assure does go too low w #Right Forearm Wound - Prior to admission - 2/2 infiltrated IV - no active signs of infection and per patient is improving - RN order to keep cover to prevent friction - have outlined area of discoloration to monitor - no pain per patient #Asthma - long standing problem - PRN inhalers provided - will keep patient on current active allergy med #Bowel Management - Query N.bowel presentation pt with constipation until yesterday after many laxative - Will adjust during stay to optimize bowel program #Falls - - Had a fall just prior to admission - no change in neurologic status - PT/OT to provide appropriate equipment and training to prevent falls - Pt educated on calling for RN's for assistance with all transfers # Prophylaxis - Pt is high risk for DVT given age, Obesity and immobility. Will continue Lovenox until mobility improves. Increased to twice daily dosing per pharmacy due to obesity. 10/09/17 16:03 Subjective: C/O R groin pain, inguinal area and down lateral thigh. She describes it as sharp and localized. Hurts with any movement. Has tenderness over the thigh. Pain is developed over past there to at inpatient rehabilitation. Hurts worse to bear weight. Had episode of urinary incontinence this morning. She is unclear about her bowel status. No cough, dyspnea, fevers, chills. Objective: Vital Signs Temp Pulse Resp BP Pulse Ox 36.9 C 98 18 132/74 H 94 10/09/17 08:00 10/09/17 08:00 10/09/17 08:00 10/09/17 08:00 10/09/17 08:00 Laboratory Results 10/08/17 06:15 10/08/17 10/09/17 10/10/17 05:59 05:59 05:59 Intake Total 540 830 Output Total 1650 [facility] 50 Balance -1110 -1155 -50 Physical Exam - Physical Exam General Appearance: alert, mild distress, obese Respiratory: normal breath sounds, crackles (Fine bibasilar), No rhonchi, No wheezing Cardiac/Chest: regular rate, rhythm, No diastolic murmur, No systolic murmur Skin: normal color, warm/dry, other (Incision over spine well-approximated, minimal scattered areas of erythema, no purulence, no discharge.) Neuro/Psych: alert, normal mood/affect, oriented x 3 ICD10 Worksheet Patient Problems: Problems Problem Status Onset C. difficile diarrhea Acute 12/14/16 Chest pain Acute Hypertension Acute Lumbar canal stenosis Acute RAD (reactive airway disease) Acute Stenosis (acquired) of bladder neck or vesicourethral orifice Acute
[2017-10-09] MEDS: ENOXAPARIN 40 MG/0.4 ML SYR SC SCH ×2 (13:29→20:12)
[2017-10-09] MEDS ORDERED: GABAPENTIN 300 MG CAP PO SCH (16:00)
[2017-10-09] MEDS: ACETAMINOPHEN 325 MG TAB PO SCH ×2 (18:00→23:53)
[2017-10-09] MEDS: traMADol 50 MG TAB PO SCH ×2 (18:01→23:53)
[2017-10-09] MEDS: MONTELUKAST SODIUM 10 MG TAB PO SCH (18:01)
[2017-10-09] MEDS: NYSTATIN POWDER 15 GM BTL TP PRN (18:02)
[2017-10-09] MEDS: MELATONIN 3 MG TAB PO SCH (20:12)
[2017-10-09] MEDS: PATCH REMOVAL 1 EA PATCH TD SCH (20:12)
[2017-10-10] MEDS: oxyCODONE IR 5 MG TAB PO PRN ×3 (03:16→13:13)
[2017-10-10] MEDS: traMADol 50 MG TAB PO SCH ×3 (05:45→18:12)
[2017-10-10] MEDS: ACETAMINOPHEN 325 MG TAB PO SCH ×3 (05:46→18:12)
[2017-10-10] MEDS: PREGABALIN 50 MG CAP PO SCH ×2 (06:57→20:20)
[2017-10-10] MEDS: LIDOCAINE 5% 1 EA PATCH TD SCH (08:18)
[2017-10-10] MEDS: ENOXAPARIN 40 MG/0.4 ML SYR SC SCH ×2 (08:18→21:01)
[2017-10-10] MEDS: DULoxetine 60 MG CAP PO SCH (08:19)
[2017-10-10] MEDS: VALSARTAN/HCTZ 80-12.5MG TAB PO SCH (08:19)
[2017-10-10] MEDS: LANSOPRAZOLE SUSP 30MG/10ML UDSYR (Adult) PO SCH (08:19)
--- NOTE | 2017-10-10 11:00 | SOAPPROG ---
SOAP Progress Note Assessment/Plan: Ms. Murray is a 72 y /o female with prior h/o low back pain and fusion with new onset of LE weakness and bowel/bladder changes. Found to have new insufficiency fx at L2 with severe lumbar stenosis most likely consistent with cauda equina presentation. S/p Surgical decompression and fusion on 10/01/[address] Pool. 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 Continue to monitor for bladder incontinence and she may benefit from urodynamic studies after discharge. I recommend that she follow up with Dr. Lopez after discharge. Additionally, she experienced some dyspnea while on BiPAP and I asked Kevon Godwin from [facility] to help evaluate. Regarding lower motor neuron bowel, on getting a KUB to determine if she is retaining stool. Also adding fiber. I discussed at length with her and nursing that if she does have lower motor neuron bowel that she will likely need manual disimpaction as her regular bowel program. Patient was not in a situation where I could get a rectal exam but I would like to do that as well to help determine if she has anal sphincter tone. A total of 35 min was spent floor in the care of the patient, the majority of which was spent in the counseling and coordination of care regarding lower motor neuron bowel management. 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 #Non traumatic SCI /Severe lumbar stenosis s/p surgical fusions - Pt with f/u xray after surgery demonstrating stability - will have f/u with NSG after d/c # Right groin/thigh pain * Hip XR without arthritis or fracture. * D/W Neurosurgery, Dr. Pool, 10/09/2017. Hold on further imaging at present. * Increased oxycodone from 2.5 mg Q 4 hr to 2.5-5 mg q.3 hours p.r.n. Increase tramadol to 100 mg q.6 hours scheduled. Schedule seated minute fen 650 mg q.6 hours. Advised to not use methocarbamol unless she clearly has muscle spasm, as she is concerned about sedating effects of pain medications. #Hypokalemia - Will continue monitor - did have supplementation prior to admission and had resolution #Urinary retention/N.Bladder? Urinary incontinence, likely lower motor neuron bladder, monitor - PVR insignificant. * No S/Sx UTI. * Recommend urodynamic studies after discharge #Acute Blood loss anemia - S/p blood transfusion - will continue to monitor especially now that on lovenox for ppx. #Somatic Pain - acute on chronic - This will be difficult to manage given patient sensitivity to medication as well as chronic nature of the pain - Continue prn oxycodone/tramadol/tylenol - Will add lidoderm patch for left flank in area where patient hit when she fell #Encephalopathy - improving - Neurology involved for concern of TIA/Stroke- Workup negative - Likely consistent with anesthesia/pain med involvement. - Monitor closely especially as adjusting pain medications - SENIOR QUALITY MANAGER to evaluate and provide support for strategies and optimize recovery #Chronic Oxygen requirement - Utilizes 3L at baseline. - continues on the same currently - Order for IS to prevent atelectasis - pt has many risk factors with recent surgery and pain from recent fall #HTN - Continue on home dose/medication - will monitor to assure does go too low w #Right Forearm Wound - Prior to admission - 2/2 infiltrated IV - no active signs of infection and per patient is improving - RN order to keep cover to prevent friction - have outlined area of discoloration to monitor - no pain per patient #Asthma - long standing problem - PRN inhalers provided - will keep patient on current active allergy med #Bowel Management - Query N.bowel presentation pt with constipation until yesterday after many laxative - Will adjust during stay to optimize bowel program #Falls - - Had a fall just prior to admission - no change in neurologic status - PT/OT to provide appropriate equipment and training to prevent falls - Pt educated on calling for RN's for assistance with all transfers # Prophylaxis - Pt is high risk for DVT given age, Obesity and immobility. Will continue Lovenox until mobility improves. Increased to twice daily dosing per pharmacy due to obesity # plan to discharge home with family assistance, we anticipate that she will need urodynamic studies on discharge and should follow up also with Dr. Lopez of Physical Medicine and Rehabilitation. 10/10/17 10:43 Subjective: Chief complaint: Constipation and incontinence No acute events overnight. No new shortness of breath or chest pain, no new numbness, tingling, or weakness. Patient endorses that she has had months of bowel incontinence, but generally managed with Imodium. She is had alternating diarrhea and incontinence, preceding the surgery. It is been months since she has had a regular bowel pattern. She also endorses she has had a history of small-bowel obstruction. Objective: Vital Signs Temp Pulse Resp BP Pulse Ox 36.7 C 90 14 102/61 96 10/10/17 07:14 10/10/17 07:14 10/10/17 07:14 10/10/17 07:14 10/10/17 07:14 Laboratory Results 10/08/17 06:15 10/09/17 10/10/17 10/11/17 05:59 05:59 05:59 Intake Total 830 1125 Output Total 1985 1800 Balance -5113 -955 Physical Exam - Physical Exam General Appearance: alert, no apparent distress EENT: No scleral icterus (R), No scleral icterus (L) Respiratory: chest non-tender, lungs clear, normal breath sounds, other (Did incentive spirometry teaching), No respiratory distress, No accessory muscle use Cardiac/Chest: normal peripheral pulses, regular rate, rhythm, No edema Abdomen: non-tender, soft, distended, No normal bowel sounds (Hypoactive bowel sounds), No guarding Skin: normal color, warm/dry, No cyanosis, No diaphoresis Neuro/Psych: alert, normal mood/affect, oriented x 3 ICD10 Worksheet Patient Problems: Problems Problem Status Onset C. difficile diarrhea Acute 12/14/16 Chest pain Acute Hypertension Acute Lumbar canal stenosis Acute RAD (reactive airway disease) Acute Stenosis (acquired) of bladder neck or vesicourethral orifice Acute
[2017-10-10] MEDS ORDERED: DUPILUMAB 300 MG SQ SCH (16:00)
[2017-10-10] MEDS: BENEFIBER/NUTRISOURCE FIBER PKT 1 EACH PO SCH ×2 (16:09→21:06)
[2017-10-10] MEDS: BISACODYL 10 MG SUPP PR PRN (18:12)
[2017-10-10] MEDS: MONTELUKAST SODIUM 10 MG TAB PO SCH (19:49)
[2017-10-10] MEDS: MELATONIN 3 MG TAB PO SCH (21:01)
[2017-10-10] MEDS: PATCH REMOVAL 1 EA PATCH TD SCH (23:37)
[2017-10-11] MEDS: ACETAMINOPHEN 325 MG TAB PO SCH ×5 (00:31→23:42)
[2017-10-11] MEDS: traMADol 50 MG TAB PO SCH ×5 (00:32→23:42)
[2017-10-11] MEDS: PANTOPRAZOLE SODIUM 40 MG TAB PO SCH ×2 (03:21→07:06)
[2017-10-11] MEDS: PREGABALIN 50 MG CAP PO SCH ×2 (07:06→18:37)
[2017-10-11] MEDS: ENOXAPARIN 40 MG/0.4 ML SYR SC SCH ×2 (08:09→20:30)
[2017-10-11] MEDS: LIDOCAINE 5% 1 EA PATCH TD SCH (08:09)
[2017-10-11] MEDS: BENEFIBER/NUTRISOURCE FIBER PKT 1 EACH PO SCH ×3 (08:09→20:31)
[2017-10-11] MEDS: VALSARTAN/HCTZ 80-12.5MG TAB PO SCH (08:10)
[2017-10-11] MEDS: DULoxetine 60 MG CAP PO SCH (08:11)
[2017-10-11] MEDS: oxyCODONE IR 5 MG TAB PO PRN ×2 (08:15→14:02)
[2017-10-11] MEDS: NYSTATIN POWDER 15 GM BTL TP PRN (08:20)
--- NOTE | 2017-10-11 13:27 | SOAPPROG ---
SOAP Progress Note Assessment/Plan: Assessment: Ms. Murray is a 72 y /o female with prior h/o low back pain and fusion with new onset of LE weakness and bowel/bladder changes. Found to have new insufficiency fx at L2 with severe lumbar stenosis most likely consistent with cauda equina presentation. S/p Surgical decompression and fusion on 10/01/[address] Pool. Plan: #Cauda equina with BLE weakness * Initial functional independence measure 73. Bed mobility requires minimal assistance to get into bed but standby assistance to get out. Transfers are done with contact guard assist to minimal assist with a front wheeled walker. She has ambulated 50-75 feet with a front wheeled walker. She negotiated 3 stairs with bilateral rails with contact guard to minimal assist. Lower body dressing requires standby to minimal assist, toileting requires minimal assist for clothing management. * Continue PT/OT involvement to optimize mobility and activities of daily living #Hospital delirium. * EDUCATION REPORTER notes mild cognitive impairment with decreased attention and organization. #Non traumatic SCI /Severe lumbar stenosis s/p surgical fusions - Pt with f/u xray after surgery demonstrating stability - will have f/u with NSG after d/c # Right groin/thigh pain * Hip XR without arthritis or fracture. * D/W Neurosurgery, Dr. Pool, 10/09/2017. Hold on further imaging at present. * Increased oxycodone from 2.5 mg Q 4 hr to 2.5-5 mg q.3 hours p.r.n. Increase tramadol to 100 mg q.6 hours scheduled. Schedule seated minute fen 650 mg q.6 hours. Advised to not use methocarbamol unless she clearly has muscle spasm, as she is concerned about sedating effects of pain medications. #Hypokalemia - Will continue monitor - did have supplementation prior to admission and had resolution #Urinary retention/N.Bladder? Urinary incontinence, - PVR insignificant. * No S/Sx UTI. # Question of neurogenic bowel. * Response to stimulant suppository and presence of anal tone argue against lower motor neuron neurogenic bowel, however had fecal incontinence this morning. * With scheduled and p.r.n. pain medications will likely need a stimulant laxative. * Continue Guar gum as a bulking agent. Initiate senna 1 tablet at bedtime starting 10/11/2017. #Acute Blood loss anemia - S/p blood transfusion - will continue to monitor especially now that on lovenox for ppx. #Somatic Pain - acute on chronic - This will be difficult to manage given patient sensitivity to medication as well as chronic nature of the pain - Continue prn oxycodone/tramadol/tylenol - Will add lidoderm patch for left flank in area where patient hit when she fell #Chronic Oxygen requirement - Utilizes 3L at baseline. - continues on the same currently - Order for IS to prevent atelectasis - pt has many risk factors with recent surgery and pain from recent fall #HTN - Continue on home dose/medication. Controlled. #Right Forearm Wound - Prior to admission - 2/2 infiltrated IV - no active signs of infection and per patient is improving - RN order to keep cover to prevent friction - have outlined area of discoloration to monitor - no pain per patient #Asthma - long standing problem - PRN inhalers provided - will keep patient on current active allergy med #Falls - - Had a fall just prior to admission - no change in neurologic status - PT/OT to provide appropriate equipment and training to prevent falls - Pt educated on calling for RN's for assistance with all transfers # Prophylaxis - Pt is high risk for DVT given age, Obesity and immobility. Will continue Lovenox until mobility improves. Increased to twice daily dosing per pharmacy due to obesity. Attended staffing, 15 min. Discussed with case management, dietitian, nursing, PT, OT, EDUCATION REPORTER. Needs improved mobility including negotiating stairs in the home, and normalized bowel and bladder function prior to discharge home. Tentative discharge date of 10/20/2017. Primary care provider is Vania Cummings MD. 10/11/17 13:28 Subjective: Had small hard bowel movement after suppository yesterday evening and then large loose stool with some incontinence this morning. She reports that she did not have a sensation of urge to defecate and then had difficulty controlling her bowels initially. She reports some paresthesias in the left buttock. No fevers or chills, no cough or dyspnea. Objective: Vital Signs Temp Pulse Resp BP Pulse Ox 37.3 C 102 H 16 128/75 H 95 10/11/17 04:56 10/11/17 04:56 10/11/17 04:56 10/11/17 04:56 10/11/17 04:56 Laboratory Results 10/08/17 06:15 10/10/17 10/11/17 10/12/17 05:59 05:59 05:59 Intake Total 1125 1300 480 Output Total 1800 1250 Balance -675 50 480 Physical Exam - Physical Exam General Appearance: alert, no apparent distress, obese Respiratory: No respiratory distress, No accessory muscle use Rectal: normal exam, No decreased tone Skin: normal color, other (Incision over lumbar spine glued, well-approximated with no dehiscence, erythema or exudate) Neuro/Psych: alert, normal mood/affect, oriented x 3 ICD10 Worksheet Patient Problems: Problems Problem Status Onset C. difficile diarrhea Acute 12/14/16 Chest pain Acute Hypertension Acute Lumbar canal stenosis Acute RAD (reactive airway disease) Acute Stenosis (acquired) of bladder neck or vesicourethral orifice Acute
[2017-10-11] MEDS: MONTELUKAST SODIUM 10 MG TAB PO SCH (18:36)
[2017-10-11] MEDS: MELATONIN 3 MG TAB PO SCH (20:31)
[2017-10-11] MEDS: SENNOSIDES 1 TAB PO SCH (20:31)
[2017-10-11] MEDS: PATCH REMOVAL 1 EA PATCH TD SCH (21:16)
[2017-10-12] MEDS: oxyCODONE IR 5 MG TAB PO PRN ×3 (01:54→19:41)
[2017-10-12] MEDS: traMADol 50 MG TAB PO SCH ×4 (05:21→23:33)
[2017-10-12] MEDS: ACETAMINOPHEN 325 MG TAB PO SCH ×4 (05:21→23:28)
[2017-10-12] MEDS: PREGABALIN 50 MG CAP PO SCH ×2 (06:48→18:00)
[2017-10-12] MEDS: ONDANSETRON DISINTEGRATING 4 MG TAB PO PRN (07:54)
[2017-10-12] MEDS: VALSARTAN/HCTZ 80-12.5MG TAB PO SCH (09:19)
[2017-10-12] MEDS: PANTOPRAZOLE SODIUM 40 MG TAB PO SCH (09:19)
[2017-10-12] MEDS: DULoxetine 60 MG CAP PO SCH (09:19)
[2017-10-12] MEDS: ENOXAPARIN 40 MG/0.4 ML SYR SC SCH ×2 (09:20→21:09)
[2017-10-12] MEDS: BENEFIBER/NUTRISOURCE FIBER PKT 1 EACH PO SCH ×3 (09:20→21:09)
[2017-10-12] MEDS: LIDOCAINE 5% 1 EA PATCH TD SCH (09:25)
[2017-10-12] MEDS: BUDESONIDE/FORMOTEROL 160/4.5 60 PUFFS/MDI IH PRN (09:29)
[2017-10-12] MEDS: POLYETHYLENE GLYCOL 3350 17 GM PKT PO SCH (09:41)
[2017-10-12] MEDS ORDERED: ALBUTEROL HFA ANES ONLY 200 PUFFS/8.5 GM MDI IH PRN (09:45)
--- NOTE | 2017-10-12 11:02 | SOAPPROG ---
SOAP Progress Note Assessment/Plan: Ms. Murray is a 72 y /o female with prior h/o low back pain and fusion with new onset of LE weakness and bowel/bladder changes. Found to have new insufficiency fx at L2 with severe lumbar stenosis most likely consistent with cauda equina presentation. S/p Surgical decompression and fusion on 10/01/[address] Pool. Today's update: Patient had limited results with bowel program, she has had overflow diarrhea and some nausea. Plan today is for a soapsuds enema and manual disimpaction. Discussed plan at length with patient and family. There is still a reasonable probability of lower motor neuron bowel impairment, continue to monitor once disimpacted. A total of 35 min was spent on the floor in the care of the patient, the majority of which was spent in the counseling coordination of care regarding bowel control. #Cauda equina with BLE weakness * Initial functional independence measure 73. Bed mobility requires minimal assistance to get into bed but standby assistance to get out. Transfers are done with contact guard assist to minimal assist with a front wheeled walker. She has ambulated 50-75 feet with a front wheeled walker. She negotiated 3 stairs with bilateral rails with contact guard to minimal assist. Lower body dressing requires standby to minimal assist, toileting requires minimal assist for clothing management. * Continue PT/OT involvement to optimize mobility and activities of daily living #Hospital delirium. 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 #Non traumatic SCI /Severe lumbar stenosis s/p surgical fusions - Pt with f/u xray after surgery demonstrating stability - will have f/u with NSG after d/c # Right groin/thigh pain * Hip XR without arthritis or fracture. * D/W Neurosurgery, Dr. Pool, 10/09/2017. Hold on further imaging at present. * Increased oxycodone from 2.5 mg Q 4 hr to 2.5-5 mg q.3 hours p.r.n. Increase tramadol to 100 mg q.6 hours scheduled. Schedule seated minute fen 650 mg q.6 hours. Advised to not use methocarbamol unless she clearly has muscle spasm, as she is concerned about sedating effects of pain medications. #Hypokalemia - Will continue monitor - did have supplementation prior to admission and had resolution #Urinary retention/N.Bladder? Urinary incontinence, - PVR insignificant. * No S/Sx UTI. # Question of neurogenic bowel. * Response to stimulant suppository and presence of anal tone argue against lower motor neuron neurogenic bowel, however had fecal incontinence this morning. * With scheduled and p.r.n. pain medications will likely need a stimulant laxative. * Continue Guar gum as a bulking agent. Initiate senna 1 tablet at bedtime starting 10/11/2017. #Acute Blood loss anemia - S/p blood transfusion - will continue to monitor especially now that on lovenox for ppx. #Somatic Pain - acute on chronic - This will be difficult to manage given patient sensitivity to medication as well as chronic nature of the pain - Continue prn oxycodone/tramadol/tylenol - Will add lidoderm patch for left flank in area where patient hit when she fell #Chronic Oxygen requirement - Utilizes 3L at baseline. - continues on the same currently - Order for IS to prevent atelectasis - pt has many risk factors with recent surgery and pain from recent fall #HTN - Continue on home dose/medication. Controlled. #Right Forearm Wound - Prior to admission - 2/2 infiltrated IV - no active signs of infection and per patient is improving - RN order to keep cover to prevent friction - have outlined area of discoloration to monitor - no pain per patient #Asthma - long standing problem - PRN inhalers provided - will keep patient on current active allergy med #Falls - - Had a fall just prior to admission - no change in neurologic status - PT/OT to provide appropriate equipment and training to prevent falls - Pt educated on calling for RN's for assistance with all transfers # Prophylaxis - Pt is high risk for DVT given age, Obesity and immobility. Will continue Lovenox until mobility improves. Increased to twice daily dosing per pharmacy due to obesity. Needs improved mobility including negotiating stairs in the home, and normalized bowel and bladder function prior to discharge home. Tentative discharge date of 10/20/2017. Primary care provider is Vania Cummings MD. # plan to discharge home with family assistance, we anticipate that she will need urodynamic studies on discharge and should follow up also with Dr. Lopez of Physical Medicine and Rehabilitation. 10/10/17 10:43 10/12/17 10:52 Subjective: Chief complaint: Chronic constipation No acute events overnight. Patient has not had successful bowel movements with interventions so far. She endorsed some nausea this morning, no vomiting. She feels that she is bloated and the nausea is likely related to constipation. She has had some overflow diarrhea. No new shortness of breath or chest pain, no new numbness, tingling, or weakness. Objective: Vital Signs Temp Pulse Resp BP Pulse Ox 36.6 C 90 20 131/75 H 98 10/12/17 06:46 10/12/17 06:46 10/12/17 06:46 10/12/17 06:46 10/12/17 06:46 Laboratory Results 10/08/17 06:15 10/11/17 10/12/17 10/13/17 05:59 05:59 05:59 Intake Total 1300 598 178 Output Total 1250 1300 Balance 50 -702 178 Physical Exam - Physical Exam General Appearance: WD/WN, alert, no apparent distress EENT: No scleral icterus (R), No scleral icterus (L) Respiratory: No respiratory distress, No accessory muscle use Cardiac/Chest: normal peripheral pulses, regular rate, rhythm Abdomen: non-tender, distended Skin: normal color, warm/dry, No cyanosis Neuro/Psych: alert, normal mood/affect, oriented x 3 ICD10 Worksheet Patient Problems: Problems Problem Status Onset C. difficile diarrhea Acute 12/14/16 Chest pain Acute Hypertension Acute Lumbar canal stenosis Acute RAD (reactive airway disease) Acute Stenosis (acquired) of bladder neck or vesicourethral orifice Acute
[2017-10-12] MEDS: MONTELUKAST SODIUM 10 MG TAB PO SCH (18:01)
[2017-10-12] MEDS: SENNOSIDES 1 TAB PO SCH (21:10)
[2017-10-12] MEDS: MELATONIN 3 MG TAB PO SCH (21:10)
[2017-10-12] MEDS: NYSTATIN POWDER 15 GM BTL TP PRN (21:11)
[2017-10-12] MEDS: PATCH REMOVAL 1 EA PATCH TD SCH (21:38)
[2017-10-13] MEDS: ACETAMINOPHEN 325 MG TAB PO SCH ×3 (05:29→18:05)
[2017-10-13] MEDS: traMADol 50 MG TAB PO SCH ×3 (05:29→18:03)
[2017-10-13] MEDS: PREGABALIN 50 MG CAP PO SCH ×2 (06:37→18:04)
[2017-10-13] MEDS: POLYETHYLENE GLYCOL 3350 17 GM PKT PO SCH (08:14)
[2017-10-13] MEDS: ONDANSETRON DISINTEGRATING 4 MG TAB PO PRN (08:14)
[2017-10-13] MEDS: BISACODYL 10 MG SUPP PR PRN (08:15)
[2017-10-13] MEDS ORDERED: MAGNESIUM CITRATE 300 ML BOTTLE PO ONE (09:11)
[2017-10-13] MEDS: PANTOPRAZOLE SODIUM 40 MG TAB PO SCH (10:48)
[2017-10-13] MEDS: DULoxetine 60 MG CAP PO SCH (10:48)
[2017-10-13] MEDS: VALSARTAN/HCTZ 80-12.5MG TAB PO SCH (10:49)
[2017-10-13] MEDS: LIDOCAINE 5% 1 EA PATCH TD SCH (10:51)
[2017-10-13] MEDS: ENOXAPARIN 40 MG/0.4 ML SYR SC SCH ×2 (10:53→21:46)
--- NOTE | 2017-10-13 12:28 | SOAPPROG ---
SOAP Progress Note Assessment/Plan: Assessment: Ms. Murray is a 72 y /o female with prior h/o low back pain and fusion with new onset of LE weakness and bowel/bladder changes. Found to have new insufficiency fx at L2 with severe lumbar stenosis most likely consistent with cauda equina presentation. S/p Surgical decompression and fusion on 10/01/[address] Pool. Plan: #Cauda equina syndrome with BLE weakness * Initial functional independence measure 73 on 10/11/2017. Bed mobility requires minimal assistance to get into bed but standby assistance to get out. Transfers are done with contact guard assist to minimal assist with a front wheeled walker. She has ambulated 50-75 feet with a front wheeled walker. She negotiated 3 stairs with bilateral rails with contact guard to minimal assist. Lower body dressing requires standby to minimal assist, toileting requires minimal assist for clothing management. * Continue PT/OT involvement to optimize mobility and activities of daily living #Hospital delirium. 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 #Non traumatic SCI /Severe lumbar stenosis s/p surgical fusions - Pt with f/u xray after surgery demonstrating stability - will have f/u with NSG after d/c #Urinary retention/N.Bladder? Urinary incontinence, - PVR insignificant. * No S/Sx UTI. # Question of neurogenic bowel/constipation. * Response to stimulant suppository and presence of anal tone argue against lower motor neuron neurogenic bowel, however has had fecal incontinence. * With scheduled and p.r.n. pain medications will likely need a stimulant laxative: Initiated senna at bedtime yesterday, 10/12/2017; increased to twice daily starting 10/13/2017. Trial of magnesium citrate x1, 10/13/2017. # Nausea. * Related to constipation, and/or tramadol/opiates. * Treat constipation as above. Reduce tramadol from 100 mg four times daily to 50 mg four times daily. * Continue ondansetron p.r.n.. #Acute Blood loss anemia - S/p blood transfusion - will continue to monitor especially now that on lovenox for ppx. #Somatic Pain - acute on chronic - This will be difficult to manage given patient sensitivity to medication as well as chronic nature of the pain - Continue prn oxycodone/tramadol/tylenol - Will add lidoderm patch for left flank in area where patient hit when she fell Chronic/stable/resolved conditions: # Right groin/thigh pain * Hip XR without arthritis or fracture. * D/W Neurosurgery, Dr. Pool, 10/09/2017. Hold on further imaging at present. * Increased oxycodone from 2.5 mg Q 4 hr to 2.5-5 mg q.3 hours p.r.n. Increase tramadol to 100 mg q.6 hours scheduled. Schedule seated minute fen 650 mg q.6 hours. Advised to not use methocarbamol unless she clearly has muscle spasm, as she is concerned about sedating effects of pain medications. #Hypokalemia - Will continue monitor - did have supplementation prior to admission and had resolution #Chronic Oxygen requirement - Utilizes 3L at baseline. - continues on the same currently - Order for IS to prevent atelectasis - pt has many risk factors with recent surgery and pain from recent fall #HTN - Continue on home dose/medication. Controlled. #Right Forearm Wound - Prior to admission - 2/2 infiltrated IV - no active signs of infection and per patient is improving - RN order to keep cover to prevent friction - have outlined area of discoloration to monitor - no pain per patient #Asthma - long standing problem - PRN inhalers provided - will keep patient on current active allergy med #Falls - - Had a fall just prior to admission - no change in neurologic status - PT/OT to provide appropriate equipment and training to prevent falls - Pt educated on calling for RN's for assistance with all transfers # Prophylaxis - Pt is high risk for DVT given age, Obesity and immobility. Will continue Lovenox until mobility improves. Increased to twice daily dosing per pharmacy due to obesity. Needs improved mobility including negotiating stairs in the home, and normalized bowel and bladder function prior to discharge home. Tentative discharge date of 10/20/2017. Primary care provider is Vania Cummings MD. 10/13/17 12:19 Subjective: Feels constipated bloated and nauseous. She says several very small bowel movements. Nurse attempted disimpaction and found no stool in the vault. She said minimal bowel movements despite bisacodyl suppository and enema yesterday and today. She is having frequent urination as well but she denies dysuria flank pain fevers or chills. Objective: Vital Signs Temp Pulse Resp BP Pulse Ox 36.5 C 93 18 123/75 H 94 10/13/17 05:38 10/13/17 05:38 10/13/17 05:38 10/13/17 05:38 10/12/17 18:21 Laboratory Results 10/08/17 06:15 10/12/17 10/13/17 10/14/17 05:59 05:59 05:59 Intake Total 598 1441 Output Total 1300 1550 Balance -702 -109 Physical Exam - Physical Exam General Appearance: WD/WN, alert, no apparent distress, obese Respiratory: No respiratory distress, No accessory muscle use Abdomen: normal bowel sounds, soft, other (Epigastric tenderness.), No distended , No guarding, No rigid Skin: normal color, warm/dry Neuro/Psych: alert, normal mood/affect, oriented x 3 ICD10 Worksheet Patient Problems: Problems Problem Status Onset C. difficile diarrhea Acute 12/14/16 Chest pain Acute Hypertension Acute Lumbar canal stenosis Acute RAD (reactive airway disease) Acute Stenosis (acquired) of bladder neck or vesicourethral orifice Acute
[2017-10-13] MEDS: BENEFIBER/NUTRISOURCE FIBER PKT 1 EACH PO SCH ×3 (13:46→21:47)
[2017-10-13] MEDS: MONTELUKAST SODIUM 10 MG TAB PO SCH (18:04)
[2017-10-13] MEDS: SENNOSIDES 1 TAB PO SCH (20:51)
[2017-10-13] MEDS: PATCH REMOVAL 1 EA PATCH TD SCH (20:52)
[2017-10-13] MEDS: oxyCODONE IR 5 MG TAB PO PRN (21:46)
[2017-10-13] MEDS: MELATONIN 3 MG TAB PO SCH (21:46)
[2017-10-14] MEDS: ACETAMINOPHEN 325 MG TAB PO SCH ×5 (00:02→23:00)
[2017-10-14] MEDS: traMADol 50 MG TAB PO SCH ×5 (00:05→23:00)
[2017-10-14] MEDS: PREGABALIN 50 MG CAP PO SCH ×2 (07:10→18:12)
[2017-10-14] MEDS: ONDANSETRON DISINTEGRATING 4 MG TAB PO PRN (08:40)
[2017-10-14] MEDS: ENOXAPARIN 40 MG/0.4 ML SYR SC SCH ×2 (08:45→20:27)
[2017-10-14] MEDS: PANTOPRAZOLE SODIUM 40 MG TAB PO SCH (09:15)
[2017-10-14] MEDS: DULoxetine 60 MG CAP PO SCH (09:15)
[2017-10-14] MEDS: VALSARTAN/HCTZ 80-12.5MG TAB PO SCH (09:15)
[2017-10-14] MEDS: BENEFIBER/NUTRISOURCE FIBER PKT 1 EACH PO SCH ×3 (09:15→18:45)
[2017-10-14] MEDS: SENNOSIDES 1 TAB PO SCH ×2 (09:15→20:26)
[2017-10-14] MEDS: LIDOCAINE 5% 1 EA PATCH TD SCH (09:17)
--- NOTE | 2017-10-14 13:20 | SOAPPROG ---
SOAP Progress Note Assessment/Plan: Assessment: Ms. Murray is a 72 y /o female with prior h/o low back pain and fusion with new onset of LE weakness and bowel/bladder changes. Found to have new insufficiency fx at L2 with severe lumbar stenosis most likely consistent with cauda equina presentation. S/p Surgical decompression and fusion on 10/01/[address] Pool. Plan: #Cauda equina syndrome with BLE weakness * Initial functional independence measure 73 on 10/11/2017. Bed mobility requires minimal assistance to get into bed but standby assistance to get out. Transfers are done with contact guard assist to minimal assist with a front wheeled walker. She has ambulated 50-75 feet with a front wheeled walker. She negotiated 3 stairs with bilateral rails with contact guard to minimal assist. Lower body dressing requires standby to minimal assist, toileting requires minimal assist for clothing management. * Continue PT/OT involvement to optimize mobility and activities of daily living #Hospital delirium. 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 #Non traumatic SCI /Severe lumbar stenosis s/p surgical fusions - Pt with f/u xray after surgery demonstrating stability - will have f/u with NSG after d/c #Urinary retention/N.Bladder? Urinary incontinence, - PVR insignificant. * No S/Sx UTI. # Question of neurogenic bowel/constipation. * Response to stimulant suppository and presence of anal tone argue against lower motor neuron neurogenic bowel, however has had fecal incontinence. * With scheduled and p.r.n. pain medications will likely need a stimulant laxative: Initiated senna at bedtime yesterday, 10/12/2017; increased to twice daily starting 10/13/2017. Trial of magnesium citrate x1, 10/13/2017 * Having diarrhea - will back off laxatives. # Nausea. * Related to constipation, and/or tramadol/opiates. * Treat constipation as above. Reduce tramadol from 100 mg four times daily to 50 mg four times daily. * Continue ondansetron p.r.n.. #Acute Blood loss anemia - S/p blood transfusion - will continue to monitor especially now that on lovenox for ppx. #Somatic Pain - acute on chronic - This will be difficult to manage given patient sensitivity to medication as well as chronic nature of the pain - Continue prn oxycodone/tramadol/tylenol - Will add lidoderm patch for left flank in area where patient hit when she fell Chronic/stable/resolved conditions: # Right groin/thigh pain * Hip XR without arthritis or fracture. * D/W Neurosurgery, Dr. Pool, 10/09/2017. Hold on further imaging at present. * Increased oxycodone from 2.5 mg Q 4 hr to 2.5-5 mg q.3 hours p.r.n. Increase tramadol to 100 mg q.6 hours scheduled. Schedule seated minute fen 650 mg q.6 hours. Advised to not use methocarbamol unless she clearly has muscle spasm, as she is concerned about sedating effects of pain medications. #Hypokalemia - Will continue monitor - did have supplementation prior to admission and had resolution #Chronic Oxygen requirement - Utilizes 3L at baseline. - continues on the same currently - Order for IS to prevent atelectasis - pt has many risk factors with recent surgery and pain from recent fall #HTN - Continue on home dose/medication. Controlled. #Right Forearm Wound - Prior to admission - 2/2 infiltrated IV - no active signs of infection and per patient is improving - RN order to keep cover to prevent friction - have outlined area of discoloration to monitor - no pain per patient #Asthma - long standing problem - PRN inhalers provided - will keep patient on current active allergy med #Falls - - Had a fall just prior to admission - no change in neurologic status - PT/OT to provide appropriate equipment and training to prevent falls - Pt educated on calling for RN's for assistance with all transfers # Prophylaxis - Pt is high risk for DVT given age, Obesity and immobility. Will continue Lovenox until mobility improves. Increased to twice daily dosing per pharmacy due to obesity. Plan: 10/14/17 13:19 Subjective: Having some diarrhea due to Mag citrate. Also with more pain that she attributes to fibromyalgia Objective: Vital Signs Temp Pulse Resp BP Pulse Ox 36.3 C 91 16 119/72 95 10/14/17 05:28 10/14/17 05:28 10/14/17 05:28 10/14/17 05:28 10/14/17 05:28 Laboratory Results 10/08/17 06:15 10/13/17 10/14/17 10/15/17 05:59 05:59 05:59 Intake Total 1441 400 358 Output Total 1550 850 Balance -109 -450 358 Physical Exam - Physical Exam General Appearance: WD/WN, alert, no apparent distress Respiratory: No respiratory distress Skin: normal color, warm/dry Neuro/Psych: alert, normal mood/affect, oriented x 3 ICD10 Worksheet Patient Problems: Problems Problem Status Onset C. difficile diarrhea Acute 12/14/16 Chest pain Acute Hypertension Acute Lumbar canal stenosis Acute RAD (reactive airway disease) Acute Stenosis (acquired) of bladder neck or vesicourethral orifice Acute
[2017-10-14] MEDS: BUDESONIDE/FORMOTEROL 160/4.5 60 PUFFS/MDI IH PRN (15:43)
[2017-10-14] MEDS: ALBUTEROL 200 PUFFS/18 GM MDI IH PRN (15:46)
[2017-10-14] MEDS: MONTELUKAST SODIUM 10 MG TAB PO SCH (18:12)
[2017-10-14] MEDS: PATCH REMOVAL 1 EA PATCH TD SCH (20:25)
[2017-10-14] MEDS: MELATONIN 3 MG TAB PO SCH (20:28)
[2017-10-14] MEDS: oxyCODONE IR 5 MG TAB PO PRN (20:28)
[2017-10-15] MEDS: traMADol 50 MG TAB PO SCH ×4 (05:17→22:51)
[2017-10-15] MEDS: ACETAMINOPHEN 325 MG TAB PO SCH ×4 (05:18→22:50)
[2017-10-15] MEDS: PREGABALIN 50 MG CAP PO SCH ×2 (06:25→18:14)
[2017-10-15] MEDS: BENEFIBER/NUTRISOURCE FIBER PKT 1 EACH PO SCH ×3 (08:32→20:56)
[2017-10-15] MEDS: LIDOCAINE 5% 1 EA PATCH TD SCH (08:32)
[2017-10-15] MEDS: ENOXAPARIN 40 MG/0.4 ML SYR SC SCH ×2 (08:32→20:55)
[2017-10-15] MEDS: PANTOPRAZOLE SODIUM 40 MG TAB PO SCH (08:32)
[2017-10-15] MEDS: VALSARTAN/HCTZ 80-12.5MG TAB PO SCH (08:32)
[2017-10-15] MEDS: DULoxetine 60 MG CAP PO SCH (08:32)
[2017-10-15] MEDS: SENNOSIDES 1 TAB PO SCH ×2 (08:33→20:55)
[2017-10-15] MEDS: POLYETHYLENE GLYCOL 3350 17 GM PKT PO SCH (08:33)
[2017-10-15] MEDS: oxyCODONE IR 5 MG TAB PO PRN ×3 (12:15→21:02)
[2017-10-15] MEDS: PATCH REMOVAL 1 EA PATCH TD SCH (18:15)
[2017-10-15] MEDS: MONTELUKAST SODIUM 10 MG TAB PO SCH (18:15)
[2017-10-15] MEDS: MELATONIN 3 MG TAB PO SCH (20:55)
--- NOTE | 2017-10-15 21:23 | SOAPPROG ---
SOAP Progress Note Assessment/Plan: Assessment: Ms. Murray is a 72 y /o female with prior h/o low back pain and fusion with new onset of LE weakness and bowel/bladder changes. Found to have new insufficiency fx at L2 with severe lumbar stenosis most likely consistent with cauda equina presentation. S/p Surgical decompression and fusion on 10/01/[address] Pool. Plan: #Cauda equina syndrome with BLE weakness * Initial functional independence measure 73 on 10/11/2017. Bed mobility requires minimal assistance to get into bed but standby assistance to get out. Transfers are done with contact guard assist to minimal assist with a front wheeled walker. She has ambulated 50-75 feet with a front wheeled walker. She negotiated 3 stairs with bilateral rails with contact guard to minimal assist. Lower body dressing requires standby to minimal assist, toileting requires minimal assist for clothing management. * Continue PT/OT involvement to optimize mobility and activities of daily living #Hospital delirium. * CELERY TIER notes mild cognitive impairment with decreased attention and organization. #Non traumatic SCI /Severe lumbar stenosis s/p surgical fusions - Pt with f/u xray after surgery demonstrating stability - will have f/u with NSG after d/c #Urinary retention/N.Bladder? Urinary incontinence, - PVR insignificant. * No S/Sx UTI. # Question of neurogenic bowel/constipation. * Response to stimulant suppository and presence of anal tone argue against lower motor neuron neurogenic bowel, however has had fecal incontinence. * With scheduled and p.r.n. pain medications will likely need a stimulant laxative: Initiated senna at bedtime yesterday, 10/12/2017; increased to twice daily starting 10/13/2017. Trial of magnesium citrate x1, 10/13/2017 * Having diarrhea - will back off laxatives. # Nausea. * Related to constipation, and/or tramadol/opiates. * Treat constipation as above. Reduce tramadol from 100 mg four times daily to 50 mg four times daily. * Continue ondansetron p.r.n.. #Acute Blood loss anemia - S/p blood transfusion - will continue to monitor especially now that on lovenox for ppx. #Somatic Pain - acute on chronic - This will be difficult to manage given patient sensitivity to medication as well as chronic nature of the pain - Continue prn oxycodone/tramadol/tylenol - Will add lidoderm patch for left flank in area where patient hit when she fell * Worsening pain over the weekend. Will get CBC and UA to evaluate for any occult infection that may be causing some myalgias. Most likely this is from her fibromyalgia Chronic/stable/resolved conditions: # Right groin/thigh pain * Hip XR without arthritis or fracture. * D/W Neurosurgery, Dr. Pool, 10/09/2017. Hold on further imaging at present. * Increased oxycodone from 2.5 mg Q 4 hr to 2.5-5 mg q.3 hours p.r.n. Increase tramadol to 100 mg q.6 hours scheduled. Schedule seated minute fen 650 mg q.6 hours. Advised to not use methocarbamol unless she clearly has muscle spasm, as she is concerned about sedating effects of pain medications. #Hypokalemia - Will continue monitor - did have supplementation prior to admission and had resolution #Chronic Oxygen requirement - Utilizes 3L at baseline. - continues on the same currently - Order for IS to prevent atelectasis - pt has many risk factors with recent surgery and pain from recent fall #HTN - Continue on home dose/medication. Controlled. #Right Forearm Wound - Prior to admission - 2/2 infiltrated IV - no active signs of infection and per patient is improving - RN order to keep cover to prevent friction - have outlined area of discoloration to monitor - no pain per patient #Asthma - long standing problem - PRN inhalers provided - will keep patient on current active allergy med #Falls - - Had a fall just prior to admission - no change in neurologic status - PT/OT to provide appropriate equipment and training to prevent falls - Pt educated on calling for RN's for assistance with all transfers # Prophylaxis - Pt is high risk for DVT given age, Obesity and immobility. Will continue Lovenox until mobility improves. Increased to twice daily dosing per pharmacy due to obesity. Plan: 10/14/17 13:19 10/15/17 21:22 Subjective: Complaining of pain all over especially in her joints,back, elbow, knees. Having some chills. No cough. No dysuria. Diarrhea is better Objective: Vital Signs Temp Pulse Resp BP Pulse Ox 36.7 C 96 18 116/69 96 10/15/17 18:19 10/15/17 18:19 02/11/18 18:19 10/15/17 18:19 10/15/17 18:19 Laboratory Results 10/08/17 06:15 10/14/17 10/15/17 10/16/17 05:59 05:59 05:59 Intake Total 400 1816 790 Output Total 850 Balance -450 1816 790 Physical Exam - Physical Exam General Appearance: WD/WN, alert, no apparent distress Respiratory: chest non-tender, lungs clear, normal breath sounds, No respiratory distress Cardiac/Chest: regular rate, rhythm, No edema Abdomen: normal bowel sounds, non-tender, soft Neuro/Psych: alert, normal mood/affect ICD10 Worksheet Patient Problems: Problems Problem Status Onset C. difficile diarrhea Acute 12/14/16 Chest pain Acute Hypertension Acute Lumbar canal stenosis Acute RAD (reactive airway disease) Acute Stenosis (acquired) of bladder neck or vesicourethral orifice Acute
[2017-10-16] MEDS: oxyCODONE IR 5 MG TAB PO PRN ×2 (01:57→08:58)
[2017-10-16] MEDS: ACETAMINOPHEN 325 MG TAB PO SCH ×4 (05:53→23:44)
[2017-10-16] MEDS: traMADol 50 MG TAB PO SCH ×4 (05:54→23:44)
[2017-10-16] MEDS: PREGABALIN 50 MG CAP PO SCH ×2 (05:54→18:16)
[2017-10-16] MEDS: ENOXAPARIN 40 MG/0.4 ML SYR SC SCH (07:42)
[2017-10-16] MEDS: DULoxetine 60 MG CAP PO SCH (07:42)
[2017-10-16] MEDS: PANTOPRAZOLE SODIUM 40 MG TAB PO SCH (07:42)
[2017-10-16] MEDS: BENEFIBER/NUTRISOURCE FIBER PKT 1 EACH PO SCH ×3 (07:42→21:14)
[2017-10-16] MEDS: VALSARTAN/HCTZ 80-12.5MG TAB PO SCH (07:43)
[2017-10-16] MEDS: SENNOSIDES 1 TAB PO SCH ×3 (07:43→21:31)
[2017-10-16] MEDS: PATCH REMOVAL 1 EA PATCH TD SCH (07:47)
[2017-10-16] MEDS: LIDOCAINE 5% 1 EA PATCH TD SCH (07:47)
[2017-10-16 08:12] LABS: PLATELET COUNT 464 10^3/uL (150-400)
[2017-10-16] MEDS: POLYETHYLENE GLYCOL 3350 17 GM PKT PO SCH (08:58)
--- NOTE | 2017-10-16 12:54 | SOAPPROG ---
SOAP Progress Note Assessment/Plan: Assessment: Ms. Murray is a 72 y /o female with prior h/o low back pain and fusion with new onset of LE weakness and bowel/bladder changes. Found to have new insufficiency fx at L2 with severe lumbar stenosis most likely consistent with cauda equina presentation. S/p Surgical decompression and fusion on 10/01/[address] Pool. Plan: #Cauda equina syndrome with BLE weakness * Initial functional independence measure 73 on 10/11/2017. Bed mobility requires minimal assistance to get into bed but standby assistance to get out. Transfers are done with contact guard assist to minimal assist with a front wheeled walker. She has ambulated 100 feet with a front wheeled walker. She negotiated 3 stairs with bilateral rails with contact guard to minimal assist. Lower body dressing requires standby to minimal assist, toileting requires minimal assist for clothing management. * Continue PT/OT involvement to optimize mobility and activities of daily living #Hospital delirium. * BRICK HANDLER notes mild cognitive impairment with decreased attention and organization. #Non traumatic SCI /Severe lumbar stenosis s/p surgical fusions - Pt with f/u xray after surgery demonstrating stability - will have f/u with NSG after d/c #Urinary retention/N.Bladder? Urinary incontinence resolving, - PVR insignificant. * No S/Sx UTI. # Question of neurogenic bowel/constipation. * Response to stimulant suppository and presence of anal tone argue against lower motor neuron neurogenic bowel, however has had fecal incontinence. * With scheduled and p.r.n. pain medications will likely need a stimulant laxative: Initiated senna at bedtime 10/12/2017; increased to twice daily starting 10/13/2017; increased to 2 tablets twice daily starting 10/16/2017. Had diarrhea after magnesium citrate x1, 10/13/2017. # Nausea. * Resolved when she moved her bowels. * Will resume tramadol 100 mg q.6 hours. #Acute Blood loss anemia - S/p blood transfusion - will continue to monitor especially now that on lovenox for ppx. #Somatic Pain - acute on chronic * Adequate control with scheduled tramadol and pregabalin and p.r.n. oxycodone. * Lidoderm patch for left flank in area where patient hit when she fell Chronic/stable/resolved conditions: # Right groin/thigh pain * Hip XR without arthritis or fracture. * D/W Neurosurgery, Dr. Pool, 10/09/2017. Hold on further imaging at present. * Increased oxycodone from 2.5 mg Q 4 hr to 2.5-5 mg q.3 hours p.r.n. Increase tramadol to 100 mg q.6 hours scheduled. Schedule seated minute fen 650 mg q.6 hours. Advised to not use methocarbamol unless she clearly has muscle spasm, as she is concerned about sedating effects of pain medications. #Hypokalemia - Will continue monitor - did have supplementation prior to admission and had resolution #Chronic Oxygen requirement - Utilizes 3L at baseline. - continues on the same currently - Order for IS to prevent atelectasis - pt has many risk factors with recent surgery and pain from recent fall #HTN - Continue on home dose/medication. Controlled. #Right Forearm Wound - Prior to admission - 10/06 infiltrated IV - no active signs of infection and per patient is improving - RN order to keep cover to prevent friction - have outlined area of discoloration to monitor - no pain per patient #Asthma - long standing problem - PRN inhalers provided - will keep patient on current active allergy med #Falls - - Had a fall just prior to admission - no change in neurologic status - PT/OT to provide appropriate equipment and training to prevent falls - Pt educated on calling for RN's for assistance with all transfers # Prophylaxis - Pt is high risk for DVT given age, mobility is much improved. Will discontinue enoxaparin starting 10/17/2017. Needs improved mobility including negotiating stairs in the home, and normalized bowel and bladder function prior to discharge home. Tentative discharge date of 10/20/2017. Plan for home PT, OT, BRICK HANDLER. Primary care provider is Vania Cummings MD. 10/16/17 12:49 Subjective: Concerned regarding bowels. No bowel movement times 1-2 days. Previously had diarrhea over the weekend after taking Mag citrate on Monday. Diarrhea resolved. Also concerned about pain. Per nursing wanting to have pain medication every 3 hr so would like oxycodone 2.5 mg nursing home in between each dose of tramadol. Objective: Vital Signs Temp Pulse Resp BP Pulse Ox 36.8 C 86 16 108/55 L 96 10/16/17 06:20 10/16/17 06:20 10/16/17 06:20 10/16/17 06:20 10/16/17 06:20 Laboratory Results 10/16/17 06:00 10/16/17 06:00 10/15/17 10/16/17 10/17/17 05:59 05:59 05:59 Intake Total 1816 1290 Balance 1816 1290 Physical Exam - Physical Exam General Appearance: WD/WN, alert, no apparent distress, obese Respiratory: No respiratory distress, No accessory muscle use Skin: normal color, warm/dry Neuro/Psych: no motor/sensory deficits, alert, normal mood/affect, oriented x 3 , abnormal gait (Wide-based, slow with front wheeled walker. Observed ascending and descending 3 stairs, step 2 pattern, with quad cane and rail.) ICD10 Worksheet Patient Problems: Problems Problem Status Onset C. difficile diarrhea Acute 12/14/16 Chest pain Acute Hypertension Acute Lumbar canal stenosis Acute RAD (reactive airway disease) Acute Stenosis (acquired) of bladder neck or vesicourethral orifice Acute
[2017-10-16] MEDS: MONTELUKAST SODIUM 10 MG TAB PO SCH (18:16)
[2017-10-16] MEDS: ONDANSETRON DISINTEGRATING 4 MG TAB PO PRN (20:08)
[2017-10-16] MEDS: MELATONIN 3 MG TAB PO SCH (21:13)
[2017-10-17] MEDS: PREGABALIN 50 MG CAP PO SCH ×2 (05:25→18:43)
[2017-10-17] MEDS: ACETAMINOPHEN 325 MG TAB PO SCH ×3 (05:26→18:43)
[2017-10-17] MEDS: traMADol 50 MG TAB PO SCH ×3 (05:26→18:43)
[2017-10-17] MEDS: BENEFIBER/NUTRISOURCE FIBER PKT 1 EACH PO SCH ×3 (09:02→21:01)
[2017-10-17] MEDS: LIDOCAINE 5% 1 EA PATCH TD SCH (09:02)
[2017-10-17] MEDS: DULoxetine 60 MG CAP PO SCH (09:02)
[2017-10-17] MEDS: PANTOPRAZOLE SODIUM 40 MG TAB PO SCH (09:02)
[2017-10-17] MEDS: VALSARTAN/HCTZ 80-12.5MG TAB PO SCH (09:03)
[2017-10-17] MEDS: SENNOSIDES 1 TAB PO SCH ×2 (09:10→21:01)
[2017-10-17] MEDS: POLYETHYLENE GLYCOL 3350 17 GM PKT PO SCH (09:12)
--- NOTE | 2017-10-17 09:34 | SOAPPROG ---
SOAP Progress Note Assessment/Plan: Ms. Murray is a 72 y /o female with prior h/o low back pain and fusion with new onset of LE weakness and bowel/bladder changes. Found to have new insufficiency fx at L2 with severe lumbar stenosis most likely consistent with cauda equina presentation. S/p Surgical decompression and fusion on 10/01/[address] Pool. Today's update: Patient continues to have intermittent diarrhea, she had some productivity with the manual disimpaction but it is unclear if she is completely cleared of stool. Obtaining KUB today. If she continues to have obstipation, she would likely need additional manual disimpaction. Again, she is at extremely high risk for lower motor neuron bowel and until we have her on a regular, normal bowel schedule we cannot rule that out. Discussed at length with patient and staff. A total of 25 min was spent on the floor in the care of the patient, the majority of which was spent in the counseling and coordination of care regarding obstipation management #Cauda equina syndrome with BLE weakness * Initial functional independence measure 73 on 10/11/2017. Bed mobility requires minimal assistance to get into bed but standby assistance to get out. Transfers are done with contact guard assist to minimal assist with a front wheeled walker. She has ambulated 100 feet with a front wheeled walker. She negotiated 3 stairs with bilateral rails with contact guard to minimal assist. Lower body dressing requires standby to minimal assist, toileting requires minimal assist for clothing management. * Continue PT/OT involvement to optimize mobility and activities of daily living #Hospital delirium. * PROFESSOR OF HISTORICAL THEOLOGY notes mild cognitive impairment with decreased attention and organization. #Non traumatic SCI /Severe lumbar stenosis s/p surgical fusions - Pt with f/u xray after surgery demonstrating stability - will have f/u with NSG after d/c #Urinary retention/N.Bladder? Urinary incontinence resolving, - PVR insignificant. * No S/Sx UTI. # Question of neurogenic bowel/constipation. Last KUB showed extensive constipation/obstipation. Manual disimpaction was partially helpful, continues to have intermittent bouts of diarrhea. She received a number of agents that would promote diarrhea, however it is unclear if she has clear her likely hard formed stool. * Continue bowel stimulants, unclear of osmotic agents will be helpful. Obtaining KUB to determine if she still has obstipation. * This is a difficult problem that is currently not resolved # Nausea. She associates it with diarrhea * Resolved when she moved her bowels. #Acute Blood loss anemia - S/p blood transfusion - will continue to monitor especially now that on lovenox for ppx. #Somatic Pain - acute on chronic * Adequate control with scheduled tramadol and pregabalin and p.r.n. oxycodone. * Lidoderm patch for left flank in area where patient hit when she fell Chronic/stable/resolved conditions: # Right groin/thigh pain * Hip XR without arthritis or fracture. * D/W Neurosurgery, Dr. Pool, 10/09/2017. Hold on further imaging at present. * Increased oxycodone from 2.5 mg Q 4 hr to 2.5-5 mg q.3 hours p.r.n. Increase tramadol to 100 mg q.6 hours scheduled. Schedule seated minute fen 650 mg q.6 hours. Advised to not use methocarbamol unless she clearly has muscle spasm, as she is concerned about sedating effects of pain medications. #Hypokalemia - Will continue monitor - did have supplementation prior to admission and had resolution #Chronic Oxygen requirement - Utilizes 3L at baseline. - continues on the same currently - Order for IS to prevent atelectasis - pt has many risk factors with recent surgery and pain from recent fall #HTN - Continue on home dose/medication. Controlled. #Right Forearm Wound - Prior to admission - 2/2 infiltrated IV - no active signs of infection and per patient is improving - RN order to keep cover to prevent friction - have outlined area of discoloration to monitor - no pain per patient #Asthma - long standing problem - PRN inhalers provided - will keep patient on current active allergy med #Falls - - Had a fall just prior to admission - no change in neurologic status - PT/OT to provide appropriate equipment and training to prevent falls - Pt educated on calling for RN's for assistance with all transfers # Prophylaxis - Pt is high risk for DVT given age, mobility is much improved. Will discontinue enoxaparin starting 10/17/2017. Needs improved mobility including negotiating stairs in the home, and normalized bowel and bladder function prior to discharge home. Tentative discharge date of 10/20/2017. Plan for home PT, OT, PROFESSOR OF HISTORICAL THEOLOGY. Primary care provider is Vania Cummings MD. # plan to discharge home with family assistance, we anticipate that she will need urodynamic studies on discharge and should follow up also with Dr. Lopez of Physical Medicine and Rehabilitation. 10/10/17 10:43 10/12/17 10:52 10/17/17 09:30 Subjective: Chief complaint: Obstipation and diarrhea No acute events overnight. Patient does endorse ongoing bouts of diarrhea incontinence. She endorses that the manual disimpaction was somewhat helpful in clearing stool but she continues to have issues. She feels that her abdomen is still rather full and tender. Otherwise, no new shortness of breath or chest pain, no new numbness, tingling, or weakness. Continues with oxygen requirement Objective: Vital Signs Temp Pulse Resp BP Pulse Ox 36.8 C 97 16 117/78 93 10/17/17 07:54 10/17/17 07:54 10/17/17 07:54 10/17/17 07:54 10/17/17 07:54 Laboratory Results 10/16/17 06:00 10/16/17 06:00 10/16/17 10/17/17 10/18/17 05:59 05:59 05:59 Intake Total 1290 915 Balance 1290 915 Physical Exam - Physical Exam General Appearance: WD/WN, alert, no apparent distress EENT: No scleral icterus (R), No scleral icterus (L) Respiratory: lungs clear, normal breath sounds, No respiratory distress, No accessory muscle use Cardiac/Chest: normal peripheral pulses, regular rate, rhythm Abdomen: soft, distended, No normal bowel sounds (Hypoactive), No non-tender Skin: normal color, warm/dry, No cyanosis, No diaphoresis Neuro/Psych: alert, normal mood/affect, oriented x 3 ICD10 Worksheet Patient Problems: Problems Problem Status Onset C. difficile diarrhea Acute 12/14/16 Chest pain Acute Hypertension Acute Lumbar canal stenosis Acute RAD (reactive airway disease) Acute Stenosis (acquired) of bladder neck or vesicourethral orifice Acute
[2017-10-17] MEDS ORDERED: POLYETHYLENE GLYCOL 3350 17 GM PKT PO PRN (14:50)
[2017-10-17] MEDS: oxyCODONE IR 5 MG TAB PO PRN ×2 (16:30→21:01)
[2017-10-17] MEDS: MONTELUKAST SODIUM 10 MG TAB PO SCH (18:44)
[2017-10-17] MEDS: PATCH REMOVAL 1 EA PATCH TD SCH (20:23)
[2017-10-17] MEDS: MELATONIN 3 MG TAB PO SCH (21:01)
[2017-10-17] MEDS: METHOCARBAMOL 750 MG TAB PO PRN (22:16)
[2017-10-18] MEDS: ACETAMINOPHEN 325 MG TAB PO SCH ×4 (00:11→18:08)
[2017-10-18] MEDS: traMADol 50 MG TAB PO SCH ×4 (00:13→18:07)
[2017-10-18] MEDS: PREGABALIN 50 MG CAP PO SCH ×2 (06:36→18:07)
[2017-10-18] MEDS: METHOCARBAMOL 750 MG TAB PO PRN (07:27)
[2017-10-18] MEDS: BENEFIBER/NUTRISOURCE FIBER PKT 1 EACH PO SCH ×3 (08:54→20:48)
[2017-10-18] MEDS: SENNOSIDES 1 TAB PO SCH ×2 (08:54→20:48)
[2017-10-18] MEDS: PANTOPRAZOLE SODIUM 40 MG TAB PO SCH (08:54)
[2017-10-18] MEDS: DULoxetine 60 MG CAP PO SCH (08:54)
[2017-10-18] MEDS: LIDOCAINE 5% 1 EA PATCH TD SCH (08:55)
[2017-10-18] MEDS: VALSARTAN/HCTZ 80-12.5MG TAB PO SCH (10:03)
[2017-10-18] MEDS: oxyCODONE IR 5 MG TAB PO PRN (10:36)
--- NOTE | 2017-10-18 12:28 | SOAPPROG ---
SOAP Progress Note Assessment/Plan: Assessment: Ms. Murray is a 72 y /o female with prior h/o low back pain and fusion with new onset of LE weakness and bowel/bladder changes. Found to have new insufficiency fx at L2 with severe lumbar stenosis most likely consistent with cauda equina presentation. S/p Surgical decompression and fusion on 10/01/[address] Pool. Plan: #Cauda equina syndrome with BLE weakness * Initial functional independence measure 73 on 10/11/2017; improved 91 as of 10/18. Standby assist for mobility. Ascended and descended full flight of stairs with contact guard assist side stepping technique with 2 hands on the rail. Ambulated 150 ft with front wheeled walker and cues for oxygen management. She accomplished dressing and other ADLs with setup to standby assist. * Continue PT/OT involvement to optimize mobility and activities of daily living #Hospital delirium. * OIL FIELD OPERATOR notes cognitive deficits and short-term memory, attention and organization. #Left shoulder/arm pain. * Reviewed head and neck CT angiogram by phone with radiologist. She has significant degenerative disease at C3-4, C 4-5 and C5-6, worse on R than L, but L C6 - C7 neural foramen is narrowed. Study included bilateral glenohumeral joints where she has degenerative joint disease with effusion on R. * Continue pain control medications. PT and OT for strengthening, range of motion and pain control modalities. #Non traumatic SCI /Severe lumbar stenosis s/p surgical fusions - Pt with f/u xray after surgery demonstrating stability - will have f/u with NSG after d/c #Urinary retention/N.Bladder? Urinary incontinence resolving, - PVR insignificant. * No S/Sx UTI. # Question of neurogenic bowel/constipation. * Response to stimulant suppository and presence of anal tone argue against lower motor neuron neurogenic bowel, however has had fecal incontinence. * With scheduled and p.r.n. pain medications will likely need a stimulant laxative: Initiated senna at bedtime 10/12/2017; increased to twice daily starting 10/13/2017; increased to 2 tablets twice daily starting 10/16/2017. Had diarrhea after magnesium citrate x1, 10/13/2017. # Nausea. * Resolved when she moved her bowels. * Will resume tramadol 100 mg q.6 hours. #Acute Blood loss anemia - S/p blood transfusion - will continue to monitor especially now that on lovenox for ppx. #Somatic Pain - acute on chronic * Adequate control with scheduled tramadol and pregabalin and p.r.n. oxycodone. * Lidoderm patch for left flank in area where patient hit when she fell Chronic/stable/resolved conditions: # Right groin/thigh pain * Hip XR without arthritis or fracture. * D/W Neurosurgery, Dr. Pool, 10/09/2017. Hold on further imaging at present. * Increased oxycodone from 2.5 mg Q 4 hr to 2.5-5 mg q.3 hours p.r.n. Increase tramadol to 100 mg q.6 hours scheduled. Schedule seated minute fen 650 mg q.6 hours. Advised to not use methocarbamol unless she clearly has muscle spasm, as she is concerned about sedating effects of pain medications. #Hypokalemia - Will continue monitor - did have supplementation prior to admission and had resolution #Chronic Oxygen requirement - Utilizes 3L at baseline. - continues on the same currently - Order for IS to prevent atelectasis - pt has many risk factors with recent surgery and pain from recent fall #HTN - Continue on home dose/medication. Controlled. #Right Forearm Wound - Prior to admission - 2/2 infiltrated IV - no active signs of infection and per patient is improving - RN order to keep cover to prevent friction - have outlined area of discoloration to monitor - no pain per patient #Asthma - long standing problem - PRN inhalers provided - will keep patient on current active allergy med #Falls - - Had a fall just prior to admission - no change in neurologic status - PT/OT to provide appropriate equipment and training to prevent falls - Pt educated on calling for RN's for assistance with all transfers # Prophylaxis - Pt is high risk for DVT given age, mobility is much improved. Will discontinue enoxaparin starting 10/17/2017. Attended staffing, 15 min. Discussed with case management, nursing, PT, OT, OIL FIELD OPERATOR. Mobility is improved and bowel function is normalizing. May not be able to diagnose and treat left shoulder arm pain beyond PT intervention and medications will while she is inpatient. Continue discharge date of 10/20/2017. Plan for home PT, OT, OIL FIELD OPERATOR. Primary care provider is Vania Cummings MD. 10/18/17 15:45 Subjective: Complains of left shoulder arm and hand pain. It severe last night and interfered with attempts to attain sleep. She took oxycodone methocarbamol on also was treated with a cooling pad. She eventually got to sleep but it is unclear which intervention was most effective. She has tingling discomfort in the left hand and pain and tenderness over the shoulder and upper left arm. She reports that she has a proprioceptive deficit when she has the pain and and only manipulate objects with the left hand when she washes carefully what she is doing with the left hand. She was changed yesterday to a room in which the bed is on the right wall so that she is getting in and out of bed on her left side and wonders if this change in the use of her upper extremities has brought on the symptoms. Also reports continued loose stool. Objective: Vital Signs Temp Pulse Resp BP Pulse Ox 36.6 C 89 16 94/57 L 96 10/18/17 05:53 10/18/17 10:04 10/18/17 05:53 10/18/17 10:04 10/18/17 05:53 Laboratory Results 10/16/17 06:00 10/16/17 06:00 10/17/17 10/18/17 10/19/17 05:59 05:59 05:59 Intake Total 915 1630 350 Balance 915 1630 350 - Time Spent With Patient Time Spent With Patient: Greater than 35 min floor time today, including more than 50% of time in coordination of care during staffing meeting and extensive counseling of patient and together with child support case officer. Physical Exam - Physical Exam General Appearance: WD/WN, alert, mild distress, obese Neck: full range of motion, supple Respiratory: normal breath sounds, No crackles, No rhonchi, No wheezing Cardiac/Chest: regular rate, rhythm, edema (Trace to 1+ bilateral lower extremities), No diastolic murmur, No systolic murmur Skin: normal color, warm/dry Extremities: other (Tender over left AC joint, acromion and scapula. 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 Left shoulder strength specific to rotator cuff muscles overall 4/5. Left hand with ataxia.) ICD10 Worksheet Patient Problems: Problems Problem Status Onset C. difficile diarrhea Acute 12/14/16 Chest pain Acute Hypertension Acute Lumbar canal stenosis Acute RAD (reactive airway disease) Acute Stenosis (acquired) of bladder neck or vesicourethral orifice Acute
[2017-10-18] MEDS: MONTELUKAST SODIUM 10 MG TAB PO SCH (18:09)
[2017-10-18] MEDS: MELATONIN 3 MG TAB PO SCH (20:48)
[2017-10-18] MEDS: PATCH REMOVAL 1 EA PATCH TD SCH (20:54)
[2017-10-19] MEDS: traMADol 50 MG TAB PO SCH ×5 (00:02→23:35)
[2017-10-19] MEDS: ACETAMINOPHEN 325 MG TAB PO SCH ×5 (00:03→23:35)
[2017-10-19] MEDS: oxyCODONE IR 5 MG TAB PO PRN ×4 (02:25→21:37)
[2017-10-19] MEDS: PREGABALIN 50 MG CAP PO SCH ×2 (06:04→17:58)
[2017-10-19] MEDS: SENNOSIDES 1 TAB PO SCH ×2 (08:34→21:38)
[2017-10-19] MEDS: BENEFIBER/NUTRISOURCE FIBER PKT 1 EACH PO SCH ×3 (08:34→21:38)
[2017-10-19] MEDS: PANTOPRAZOLE SODIUM 40 MG TAB PO SCH (08:34)
[2017-10-19] MEDS: VALSARTAN/HCTZ 80-12.5MG TAB PO SCH (08:34)
[2017-10-19] MEDS: DULoxetine 60 MG CAP PO SCH (08:35)
[2017-10-19] MEDS: LIDOCAINE 5% 1 EA PATCH TD SCH (09:14)
--- NOTE | 2017-10-19 11:23 | SOAPPROG ---
SOAP Progress Note Assessment/Plan: Ms. Murray is a 72 y /o female with prior h/o low back pain and fusion with new onset of LE weakness and bowel/bladder changes. Found to have new insufficiency fx at L2 with severe lumbar stenosis most likely consistent with cauda equina presentation. S/p Surgical decompression and fusion on 10/01/[address] Pool. Today's update: Patient continues to have some diarrhea and also added to the history that she has a history of irritable bowel syndrome for which she had steroid treatment in the past. I recommended that she follow up with her primary care physician on this issue as it would definitely complicated her bowel management strategy. She should also follow up with Dr. Lopez of Physical Medicine Rehabilitation for bowel care. KUB from 10/17 was clear. Plan to discharge tomorrow, follow-up as an outpatient for some of these bowel related issues. A total of 35 min was spent on the floor in the care of the patient, the majority of which was spent counseling coordinating care regarding bowel management strategies. Additionally, she notes ongoing right arm pain that has been attributed to the cervical spine. She should follow up with Dr. Pool from Neurosurgery about this issue as well. #Cauda equina syndrome with BLE weakness * Initial functional independence measure 73 on 10/11/2017; improved 91 as of 10/18. Standby assist for mobility. Ascended and descended full flight of stairs with contact guard assist side stepping technique with 2 hands on the rail. Ambulated 150 ft with front wheeled walker and cues for oxygen management. She accomplished dressing and other ADLs with setup to standby assist. * Continue PT/OT involvement to optimize mobility and activities of daily living #Hospital delirium. * SOURCING CONSULTANT notes cognitive deficits and short-term memory, attention and organization. #Left shoulder/arm pain. * Reviewed head and neck CT angiogram by phone with radiologist. She has significant degenerative disease at C3-4, C 4-5 and C5-6, worse on R than L, but L C6 - C7 neural foramen is narrowed. Study included bilateral glenohumeral joints where she has degenerative joint disease with effusion on R. * Continue pain control medications. PT and OT for strengthening, range of motion and pain control modalities. * Follow-up with Neurosurgery and Dr. Lopez #Non traumatic SCI /Severe lumbar stenosis s/p surgical fusions - Pt with f/u xray after surgery demonstrating stability - will have f/u with NSG after d/c #Urinary retention/N.Bladder? Urinary incontinence resolving, - PVR insignificant. * No S/Sx UTI. # Question of neurogenic bowel/constipation. Complicated by history of irritable bowel syndrome * Response to stimulant suppository and presence of anal tone argue against lower motor neuron neurogenic bowel, however has had fecal incontinence. * With scheduled and p.r.n. pain medications will likely need a stimulant laxative: Initiated senna at bedtime 10/12/2017; increased to twice daily starting 10/13/2017; increased to 2 tablets twice daily starting 10/16/2017. Had diarrhea after magnesium citrate x1, 10/13/2017. * Continue following with Dr. Lopez after discharge # Nausea. * Resolved when she moved her bowels. * Will resume tramadol 100 mg q.6 hours. #Acute Blood loss anemia - S/p blood transfusion - will continue to monitor especially now that on lovenox for ppx. #Somatic Pain - acute on chronic * Adequate control with scheduled tramadol and pregabalin and p.r.n. oxycodone. * Lidoderm patch for left flank in area where patient hit when she fell Chronic/stable/resolved conditions: # Right groin/thigh pain * Hip XR without arthritis or fracture. * D/W Neurosurgery, Dr. Pool, 10/09/2017. Hold on further imaging at present. * Increased oxycodone from 2.5 mg Q 4 hr to 2.5-5 mg q.3 hours p.r.n. Increase tramadol to 100 mg q.6 hours scheduled. Schedule seated minute fen 650 mg q.6 hours. Advised to not use methocarbamol unless she clearly has muscle spasm, as she is concerned about sedating effects of pain medications. #Hypokalemia - Will continue monitor - did have supplementation prior to admission and had resolution #Chronic Oxygen requirement - Utilizes 3L at baseline. - continues on the same currently - Order for IS to prevent atelectasis - pt has many risk factors with recent surgery and pain from recent fall #HTN - Continue on home dose/medication. Controlled. #Right Forearm Wound - Prior to admission - 2/2 infiltrated IV - no active signs of infection and per patient is improving - RN order to keep cover to prevent friction - have outlined area of discoloration to monitor - no pain per patient #Asthma - long standing problem - PRN inhalers provided - will keep patient on current active allergy med #Falls - - Had a fall just prior to admission - no change in neurologic status - PT/OT to provide appropriate equipment and training to prevent falls - Pt educated on calling for RN's for assistance with all transfers # Prophylaxis - Pt is high risk for DVT given age, mobility is much improved. Will discontinue enoxaparin starting 10/17/2017. Mobility is improved and bowel function is normalizing. May not be able to diagnose and treat left shoulder arm pain beyond PT intervention and medications will while she is inpatient. Continue discharge date of 10/20/2017. Plan for home PT, OT, SOURCING CONSULTANT. Primary care provider is Vania Cummings MD. # plan to discharge home with family assistance, we anticipate that she will need urodynamic studies on discharge and should follow up also with Dr. Lopez of Physical Medicine and Rehabilitation. 10/10/17 10:43 10/12/17 10:52 10/17/17 09:30 10/19/17 11:20 Subjective: Chief complaint: Bowel incontinence No acute events overnight. Patient did have a bout of bowel incontinence and she is concerned about going home with this level. She also shared that she had a history of irritable bowel syndrome and has had a course of steroids for this in the past. This is new knowledge to me about this problem. She endorses some ongoing diarrhea, otherwise denies any new shortness of breath or chest pain, no new numbness, tingling, or weakness. Counseled her about not using Imodium when she goes home as this could contribute to constipation but looks like things are cleared at this point. Objective: Vital Signs Temp Pulse Resp BP Pulse Ox 36.5 C 94 16 120/71 94 10/19/17 06:09 10/19/17 06:09 10/19/17 06:09 10/19/17 06:09 10/19/17 06:09 Laboratory Results 10/16/17 06:00 10/16/17 06:00 10/18/17 10/19/17 10/20/17 05:59 05:59 05:59 Intake Total 1630 1280 240 Balance 1630 1280 240 Physical Exam - Physical Exam General Appearance: WD/WN, alert, no apparent distress EENT: No scleral icterus (R), No scleral icterus (L) Respiratory: lungs clear, normal breath sounds, No respiratory distress Cardiac/Chest: normal peripheral pulses, regular rate, rhythm, No edema Skin: normal color, warm/dry, No cyanosis Extremities: No pedal edema, No swelling Neuro/Psych: alert, normal mood/affect, oriented x 3 ICD10 Worksheet Patient Problems: Problems Problem Status Onset C. difficile diarrhea Acute 12/14/16 Chest pain Acute Hypertension Acute Lumbar canal stenosis Acute RAD (reactive airway disease) Acute Stenosis (acquired) of bladder neck or vesicourethral orifice Acute
--- NOTE | 2017-10-19 13:22 | PDOREHIP ---
Admission [facility] - Admission - 3 Day Assessment Period Admission Date/Day 1: 10/07/17 Day 2: 10/08/17 Day 3: 10/09/17 Discharge [facility] - Discharge - 3 Day Assessment Period 2 Days Prior to Anticipated Discharge Date: 10/18/17 1 Day Prior to Anticipated Discharge Date: 10/19/17 Anticipated Discharge Date: 10/20/17 - Discharge Skin Conditions Unhealed Pressure Ulcer (1 or more/Stage 1 or >)-Discharge: 0. No
[2017-10-19] MEDS: MONTELUKAST SODIUM 10 MG TAB PO SCH (17:58)
[2017-10-19 18:08] VITALS: RESP 18
[2017-10-19] MEDS: MELATONIN 3 MG TAB PO SCH (21:38)
[2017-10-19] MEDS: PATCH REMOVAL 1 EA PATCH TD SCH (21:45)
[2017-10-20] MEDS: ALBUTEROL 200 PUFFS/18 GM MDI IH PRN (00:49)
[2017-10-20] MEDS: oxyCODONE IR 5 MG TAB PO PRN ×3 (03:29→15:17)
[2017-10-20] MEDS: traMADol 50 MG TAB PO SCH ×2 (05:10→11:20)
[2017-10-20] MEDS: ACETAMINOPHEN 325 MG TAB PO SCH ×2 (05:10→11:19)
[2017-10-20 05:15] VITALS: BP 132/83; PULSE 100; TEMP 97.2; O2SAT 91
[2017-10-20] MEDS: PREGABALIN 50 MG CAP PO SCH (06:24)
[2017-10-20] MEDS: LIDOCAINE 5% 1 EA PATCH TD SCH (08:20)
[2017-10-20] MEDS: BENEFIBER/NUTRISOURCE FIBER PKT 1 EACH PO SCH ×2 (08:21→15:17)
[2017-10-20] MEDS: SENNOSIDES 1 TAB PO SCH (08:21)
[2017-10-20] MEDS: DULoxetine 60 MG CAP PO SCH (08:21)
[2017-10-20] MEDS: VALSARTAN/HCTZ 80-12.5MG TAB PO SCH (08:21)
[2017-10-20] MEDS: PANTOPRAZOLE SODIUM 40 MG TAB PO SCH (08:21)
--- NOTE | 2017-10-22 14:36 | GDS ---
[f rep st] DISCHARGE SUMMARY TIME OF DISCHARGE: 4:30 p.m. REFERRING FACILITY: [facility]. REFERRING PHYSICIAN: Dr. Peterson IMPAIRMENT GROUP DIAGNOSIS: 4.111/nontraumatic spinal cord dysfunction. DATE OF ONSET: 07/14/2017 HOSPITAL COURSE: The patient [facility]2017 following L1-3 laminectomy and fusion on 10/01/2017 for L2 insufficiency fracture with associated disk protrusion at L2-3 , with severe canal and lateral stenosis. Following surgery, she was noted to have altered mental status, slurred speech, and decreased attention. CTA of the head and neck was negative for stenosis. She had an MRI of her brain on , without evidence of intact or other acute process. She was subsequently transferred to rehabilitation for further physical, occupational, and speech therapy. Following her surgery, she was noted to have new onset lower extremity weakness along with bowel and bladder changes, which was felt most consistent with cauda equina presentation. Her rehab course was complicated by urinary retention and urinary incontinence, along with intermittent bowel incontinence. She was also noted to have encephalopathy and was followed by Neurology. She improved slowly during her hospital course. She was noted to have limited results with the bowel program and had some overflow diarrhea and some nausea. She was managed with various stool softeners and bowel meds, although there was still a reasonable probability of lower motor neuron bowel impairment. She was also noted to have some cognitive impairment with decreased attention and organization. During her rehabilitation stay, she continued to make some improvement in lower extremity weakness. Her initial functional independence measure on 10/11 was 73 , consistent with snf level of function. Bed mobility required minimal assistance, but standby assist to get out of bed. Transfers were performed with contact guard assist to minimal assist using an FWW. Her post- void residuals were felt to be insignificant. There continued to be a question of neurogenic bowel versus constipation. She did respond to stimulant suppository and had anal tone which argued against a lower motor neuron neurogenic bowel. However, she did have some fecal incontinence. She was managed with stimulant laxative, senna at bedtime, which was increased to twice daily on 10/13/2017. On the day of discharge, she continued to have some diarrhea, but it was also noted that she had an intermittent history of irritable bowel syndrome. It was recommended that she have followup with her primary care physician for management of her bowel program. She was also given followup with Dr. Lopez of Physical and Medicine Rehabilitation for bowel care with possible lower motor neuron neurogenic bowel due to cauda equina syndrome. KUB on 10/17 was clear. On the day of discharge, she was noted by nursing to be continent of her bowels. DISCHARGE MEDICATIONS: Acetaminophen, doxepin, albuterol aerosol, laxative, methocarbamol, oxycodone rapid release, tramadol, montelukast, pantoprazole, lidocaine patch, valsartan/hydrochlorothiazide, duloxetine, melatonin, pregabalin, budesonide/formoterol (by breathing), DISCHARGE FOLLOWUP: 1. Primary care physician. 2. Dr. Lopez, Physical Medicine/Rehabilitation. 3. Dr. Pool, Neurosurgery. She was discharged in stable condition, alert and oriented. She was a safety risk for falls due to poor balance. She was noted to be continent of bowel and bladder. Skin condition: She was noted to monitor her back incision and observe for redness and further skin breakdown. /[id number]/MODL MTDD
== END 2017-10-20 17:15 | disposition home or self-care (01) | DRG 73 ==
LOC: BREH 10-07 13:42
PROVIDERS: ADMIT Physical Medicine & Rehabilitation; ATTEND Internal Medicine
DX: G83.4 Cauda equina syndrome (principal); R33.9 Retention of urine, unspecified; G92 Toxic encephalopathy; D62 Acute posthemorrhagic anemia; T82.898A Other specified complication of vascular prosthetic devices, implants and grafts, initial encounter; J96.10 Chronic respiratory failure, unspecified whether with hypoxia or hypercapnia; J45.909 Unspecified asthma, uncomplicated; E66.01 Morbid (severe) obesity due to excess calories; I10 Essential (primary) hypertension; M79.7 Fibromyalgia; R73.03 Prediabetes; E87.6 Hypokalemia; Z98.1 Arthrodesis status; Z79.51 Long term (current) use of inhaled steroids; Z79.52 Long term (current) use of systemic steroids
CPT/HCPCS: 92507-GN; 92522-GN; 92610-GN; 97110-GO; 97110-GP; 97116-GP; 97140-GO; 97162-GP; 97166-GO; 97530-GO; 97530-GP; 97535-GO; J1650

== ENCOUNTER → 2017-10-28 | Outpatient (CLI) | payer OTHER | LOC: FIMAGING 14:59 | PROVIDERS: ATTEND Physician Assistant Surgical | DX: M43.12 Spondylolisthesis, cervical region (principal); M50.321 Other cervical disc degeneration at C4-C5 level; M25.78 Osteophyte, vertebrae; M50.31 Other cervical disc degeneration, high cervical region ==

== ENCOUNTER → 2018-02-16 | Outpatient (CLI) | payer OTHER | LOC: FIMAGING 13:48 | PROVIDERS: ATTEND Physician Assistant Surgical | DX: M41.9 Scoliosis, unspecified (principal); R93.7 Abnormal findings on diagnostic imaging of other parts of musculoskeletal system; Z98.1 Arthrodesis status ==

== ENCOUNTER → 2018-05-18 | Outpatient (CLI) | payer OTHER ==
--- NOTE | 2018-05-21 16:51 | CPEKG ---
Test Reason : OPEN Blood Pressure : / mmHG Vent. Rate : 075 BPM Atrial Rate : 075 BPM P-R Int : 140 ms QRS Dur : 082 ms QT Int : 364 ms P-R-T Axes : 059 042 046 degrees QTc Int : 407 ms SINUS RHYTHM Confirmed by Andrea Hay ([id number]) on 05/21/2018 4:51:25 PM Referred By: Confirmed By:Andrea Hay
== END ==
LOC: BCP 11:21
PROVIDERS: ATTEND Internal Medicine
DX: Z01.818 Encounter for other preprocedural examination (principal); R09.02 Hypoxemia; J98.4 Other disorders of lung

== ENCOUNTER 2018-06-14 05:42 | Day surgery (SDC) | payer OTHER ==
[2018-06-14] MEDS ORDERED: LR 1,000 ML IV ONE (06:03)
[2018-06-14] MEDS ORDERED: LIDOCAINE 1% 2 ML INJ ID PRN (06:03)
--- NOTE | 2018-06-14 06:56 | PDANEPAE ---
ANE History of Present Illness OA here for R shoulder arthroscopy SAD ANE Past Medical History - Cardiovascular History Hx Hypertension: Yes Hx Arrhythmias: No Hx Chest Pain: No Hx Coronary Artery / Peripheral Vascular Disease: No Hx CHF / Valvular Disease: No Hx Palpitations: No - Pulmonary History Hx COPD: Yes Hx Asthma/Reactive Airway Disease: No Hx Recent Upper Respiratory Infection: No Hx Oxygen in Use at Home: Yes O2 in Use at Home (L/minute): 3 CONT Hx Sleep Apnea: Yes Sleep Apnea Screening Result - Last Documented: Positive Pulmonary History Comment: USES BIPAP AT HS - Neurologic History Hx Cerebrovascular Accident: No Hx Seizures: No Hx Dementia: No - Endocrine History Hx Diabetes: No - Renal History Hx Renal Disorders: No - Liver History Hx Hepatic Disorders: No - Neurological & Psychiatric Hx Hx Neurological and Psychiatric Disorders: No - Cancer History Hx Cancer: Yes Cancer History Comment: SKIN - Congenital Disorder History Hx Congenital Disorders: No - GI History Hx Gastrointestinal Disorders: Yes Gastrointestinal History Comment: GERD. CONSTIPATION - Other Health History Other Health History: EHLER-DANLOS SYNDROME. FIBROMYALGIA. ECZEMA LT ELBOW AND RT HAND. DENTAL IMPLANT. ANEMIA. BRUISES EASILY. LILY SHLDR LIMITED ROM - Chronic Pain History Chronic Pain: Yes (LILY SHLDRS) - Surgical History Prior Surgeries: LUMBAR FUSION 10/2017. LILY TOTAL KNEE. ROYCE. RHINOPLASTY. TONSILLECTOMY. APPENDECTOMY. LILY SHLDR RTC. RT WRIST ORIF WITH POST HARDWARE REMVL. LILY CATARACT. LILY CARPAL TUNNEL ANE Review of Systems Review of Systems: - Exercise capacity METS (RN): 3 METS ANE Patient History - Allergies Allergies/Adverse Reactions: latex [Latex] Allergy (Severe, Verified 09/30/17 15:36) Dyspnea hydrocodone bitartrate [From Vicodin] Allergy (Intermediate, Verified 09/30/17 15:36) Rash Sulfa (Sulfonamide Antibiotics) Allergy (Mild, Verified 09/30/17 15:36) Rash TOMATOES Allergy (Severe, Uncoded 11/02/16 21:27) DERMATITIS CHOCOLATE Allergy (Intermediate, Uncoded 11/02/16 21:27) DERMATITIS beer and wine Allergy (Uncoded 10/08/17 07:29) cinnamon Allergy (Uncoded 10/08/17 07:30) curcumin Allergy (Uncoded 10/08/17 07:29) - Home Medications Home Medications: Cetirizine [ZyrTEC 10 mg (*)] 10 mg PO TID PRN 04/07/16 [Last Taken 06/14/18 04: 30] Advil TID 06/12/18 [Last Taken 06/13/18] Benadryl PRN 06/12/18 [Last Taken 06/13/18] Benefiber HS 06/12/18 [Last Taken 06/13/18] Steve-Sequels 50 mg HS 06/12/18 [Last Taken 06/13/18] HCTZ (*) DAILY 06/12/18 [Last Taken 06/13/18] Herbals/Supplements -Info Only DAILY 06/12/18 [Last Taken 06/08/18] Miralax 17 gm (*) HS 06/12/18 [Last Taken 06/13/18] Montelukast Sodium [Singulair 10 mg (*)] 10 mg PO HS 06/12/18 [Last Taken ] Tagamet Hb HS 06/12/18 [Last Taken 06/13/18] Triamcinolone 0.025% PRN 06/12/18 [Last Taken 06/13/18] - NPO status NPO Since - Liquids (Date): 06/14/18 NPO Since - Liquids (Time): 02:00 NPO Since - Solids (Date): 06/13/18 NPO Since - Solids (Time): 18:00 - Anes Hx Anes Hx: no prior problems - Smoking Hx Smoking Status: Never smoked - Alcohol Use Alcohol Use: None - Family Anes Hx Family Anes Hx: none ANE Labs/Vital Signs - Vital Signs Blood Pressure: 122/75 Heart Rate: 83 Respiratory Rate: 11 O2 Sat (%): 98 Height: 157.48 cm Weight: 91.172 kg ANE Physical Exam - Airway Neck exam: FROM Mallampati Score: Class 2 Mouth exam: normal dental/mouth exam - Pulmonary Pulmonary: no respiratory distress, clear to auscultation - Cardiovascular Cardiovascular: regular rate and rhythym, no murmur, rub, or gallop - ASA Status ASA Status: III ANE Anesthesia Plan Anesthesia Plan: general endotracheal anesthesia, GA w LMA
[2018-06-14] MEDS ORDERED: MIDAZOLAM 2 MG/2 ML VIAL IVP ONE (06:57)
[2018-06-14] MEDS ORDERED: EPINEPHrine 30 MG/30 ML MDV (0.1 MG/0.1 ML) ONE (07:01)
[2018-06-14] MEDS ORDERED: BUPIVACAINE 0.25% 30 ML SDV ONE (07:01)
[2018-06-14] MEDS ORDERED: fentaNYL 100 MCG/2 ML INJ ONE (07:01)
[2018-06-14] MEDS ORDERED: PROPOFOL 200 MG/20 ML VIAL ONE (07:01)
[2018-06-14] MEDS ORDERED: EPINEPHrine 1 MG/ML INJ ONE (07:02)
[2018-06-14] MEDS ORDERED: ceFAZolin 2 GM/DEXTROSE 100 ML IV ONE (07:43)
[2018-06-14] MEDS ORDERED: ONDANSETRON DISINTEGRATING 4 MG TAB PO PRN (07:43)
--- NOTE | 2018-06-14 07:43 | PDHPUP ---
History & Physical Update H&P update statement: This history and physical update is based on an assessment of the patient which was completed after admission or registration (within 24 hours), but prior to the surgery/procedure. H&P update: H&P reviewed & patient examined, no change in patient's condition since H&P completed (Patient seen/examined in conjunction with Dr. Jain. )
[2018-06-14] MEDS ORDERED: CEFAZOLIN 2 GM/DEXTROSE/100 ML BAG IV ONE (07:50)
[2018-06-14] MEDS ORDERED: ONDANSETRON 4 MG/2 ML VIAL ONE (08:33)
[2018-06-14] MEDS ORDERED: DEXAMETHASONE 4 MG/ML VIAL ONE (08:33)
[2018-06-14] MEDS ORDERED: PROMETHAZINE HCL 25 MG/ML INJ IVP PRN (09:18)
[2018-06-14] MEDS ORDERED: NALOXONE HCL 0.4 MG/ML INJ IVP PRN (09:18)
[2018-06-14] MEDS ORDERED: ONDANSETRON 4 MG/2 ML VIAL IVP PRN (09:18)
[2018-06-14] MEDS ORDERED: fentaNYL 100 MCG/2 ML INJ IVP PRN (09:18)
--- NOTE | 2018-06-14 09:20 | POSTANESTH ---
Post Anesthetic Evaluation Cardiovascular Status: Normal, Stable, Similar to Pre-Op Cond Respiratory Status: Normal, Stable, Similar to Pre-op Cond. Level of Consciousness/Mental Status: Can Participate in Eval, Alert and Oriented Pain Control: Adequate, Prn Tx Ordered Nausea/Vomiting Control: Adequate, Prn Tx Ordered Complications Possibly Related to Anesthesia: None Noted
--- NOTE | 2018-06-14 09:22 | POSTOPPROG ---
Post Op Note Date of Operation: 06/14/18 Surgeon: Migdalia Aragon Fine Grade Bulldozer Operator: Migdalia Aragon, PAC Anesthesia: GET(General Endotracheal) Pre-op Diagnosis: Right shoulder pain with previous right shoulder scope Post-op Diagnosis: Right shoulder pain with previous right shoulder scope Procedure: Right shoulder arthroscopy with biopsy of synovium Inf/Abcess present in the surg proc area at time of surgery?: No Depth: Superfical (Skin SQ) EBL: Minimal Specimen(s): Samples taken from right shoulder synovium.
[2018-06-14] MEDS ORDERED: oxyCODONE IR 5 MG TAB ONE ×2 (09:41→09:57)
[2018-06-14] MEDS: oxyCODONE IR 5 MG TAB PO PRN ×2 (09:42→09:58)
--- NOTE | 2018-06-14 09:58 | GOP ---
DATE OF OPERATION: 06/14/2018 SURGEON: Poncho Jain MD TELECOMMUNICATIONS REPAIRER: Migdalia Aragon PA-C. ANESTHESIA: General with Dr. Pascal. PREOPERATIVE DIAGNOSIS: Right shoulder arthropathy with humeral head collapse concerning for possible infection. POSTOPERATIVE DIAGNOSIS: Right shoulder arthropathy with humeral head collapse concerning for possible infection. PROCEDURE PERFORMED: Right shoulder arthroscopy for debridement, synovectomy, and tissue cultures. FINDINGS: EUA was notable for rather extensive crepitation. No obvious instability. Right shoulder arthroscopic findings were notable for severe bone loss of the glenoid with medial erosion and diminutive glenoid surface. Exposed bone throughout. Humeral head was with severe collapse and deformity. Subscapularis was with significant synovitis and degenerative fraying, though overall the majority of the tendon was intact. Supraspinatus and infraspinatus appeared to be deficient. There was extensive synovitis throughout the shoulder obscuring visualization of the structures throughout. The pouch was intact with severe synovitis. There were multiple loose bodies within the intra -articular space. No signs of obvious purulence. No found foreign body such as a suture anchor. SPECIMENS: Five tissue cultures from the intra-articular space of the shoulder were sent for aerobic, anaerobic and fungal cultures, and with instructed to be held for 14 days for P. acnes growth. ESTIMATED BLOOD LOSS: Minimal. INDICATIONS: This is a 73-year-old female, who presented to me after being referred by my partner, Kal Castillo MD, with right shoulder severe deformity and arthropathy. The patient has a past surgical history pertinent for prior rotator cuff repair which failed with re-tearing. On evaluation, her plain radiographs including CT scan were notable for significant humeral head collapse and severe bone loss of the glenoid. Given the above overall appearance and history, infection was considered and her preop serum labs were consistent with possible infection with elevated ESR and CRP. Given the above, surgery was recommended to rule out occult infection. The risks, benefits and alternatives were discussed with the patient. All questions were answered prior to surgery. She provided a signed witnessed informed consent, which was placed in her chart. Please see history and physical for additional information. DESCRIPTION OF PROCEDURE: The patient was identified in the preop holding area , and the right shoulder was signed designating the operative site. She was confirmed in bilateral lower extremity BABS hoses and SCDs. Her preop prophylactic antibiotics were held for cultures. The patient was taken back to the operating room and placed supine on the OR table. General anesthesia was obtained. She was then turned to the lateral decubitus position with an axillary roll on the left side and a forte bag for positioning. The left upper extremity was forward flexed on a well-padded arm board. Right upper extremity was prepped and draped in the usual sterile manner with 10 pounds of abduction and 10 pounds of longitudinal traction with the Star sleeve. Both lower extremities were padded with pillows and foam eggcrate padding, as well as the OR table around the heels, ankles, and proximal fibula bilaterally. Standard posterior and anterior portals were established with a #11 blade. Complete diagnostic arthroscopy was performed with findings as above. Initially , multiple synovial cultures (5) were taken from anterior interval, rotator cuff tear site, pouch, posterior capsular space and the superior labral recess for a total of 5 cultures. Tissue was obtained for each of these cultures. After these cultures were taken, instructions were given for the IV antibiotics to be provided. The patient then underwent debridement with a full-radius shaver as well as loose body removal. Multiple loose bodies were removed, both during the culturing section of the surgery as well as irrigation and suction with a cannula. The full-radius shaver was also used to remove multiple intra- articular floating loose bodies. There was circumferential labral tearing that was debrided back to stable base. The rotator cuff fraying anteriorly at the subscapularis was debrided back to a stable base. Complete synovectomy was performed throughout the rotator interval and subacromial space, which was continuous with the articular space. Bursectomy was performed in this area as well. The torn rotator cuff stump was debrided back to a stable base. Additional synovitis in the pouch was carefully ablated with an ArthroCare wand. Finally, pump pressure was dropped and the entire shoulder was inspected to assure no hemostasis, coagulation was maintained with ArthroCare wand throughout. Once all work was completed, the scope equipment was removed after saline evacuation. The Portals were closed with interrupted 3-0 nylon sutures. Sterile postoperative surgical dressings were applied. The right upper extremity was placed in an immobilizer. The anesthesia service then took over to wake the patient up. TOURNIQUET TIME: None. DRAINS: None. COMPLICATIONS: None. DISPOSITION: The patient was extubated and transferred to PACU in stable condition. /[id number]/MODL MTDD
[2018-06-14 11:31] VITALS: BP 131/72
== END 2018-06-14 11:33 | disposition home or self-care (01) ==
LOC: FSGY 05:42
PROVIDERS: ATTEND Orthopaedic Surgery
PROC: 0RBJ4ZZ Excision of Right Shoulder Joint, Percutaneous Endoscopic Approach (ICD-10-PCS; principal; 2018-06-14 07:15)
DX: M12.811 Other specific arthropathies, not elsewhere classified, right shoulder (principal); M25.811 Other specified joint disorders, right shoulder
CPT/HCPCS: J0171; J0690; J1100; J2250; J2405; J2704; J3010

== ENCOUNTER 2018-08-01 13:30 | Inpatient (IN) | payer OTHER ==
[2018-09-05] MEDS ORDERED: TRANEXAMIC ACID 1,000 MG in NS 100 ML IV ONE (06:00)
[2018-09-05] MEDS ORDERED: ROPIVACAINE 0.2% 80 MG, EPINEPHrine 0.2 MG, KETOROLAC TROMETHAMINE 30 MG, morphINE 10 M... IU ONE (06:00)
[2018-09-05] MEDS ORDERED: BUPIVACAINE/EPI 0.25% 30 ML SDV ONE (07:53)
[2018-09-05] MEDS ORDERED: BACITRACIN 50,000 UNITS/10 ML SYR IRR ONE (10:51)
[2018-09-05] MEDS ORDERED: ceFAZolin 2 GM/DEXTROSE 100 ML IV ONE (10:54)
[2018-09-05] MEDS ORDERED: LIDOCAINE 1% 2 ML INJ ID PRN (10:55)
[2018-09-05] MEDS ORDERED: LR 1,000 ML IV ONE (10:55)
[2018-09-05 11:18] LABS: PLATELET COUNT 321 10^3/uL (150-400)
--- NOTE | 2018-09-05 12:53 | PDANEPAE ---
ANE History of Present Illness R partial shoulder replacement for pain and frozen shoulder ANE Past Medical History - Cardiovascular History Hx Hypertension: Yes Hx Arrhythmias: No Hx Chest Pain: No Hx Coronary Artery / Peripheral Vascular Disease: No Hx CHF / Valvular Disease: No Hx Palpitations: No - Pulmonary History Hx COPD: Yes Hx Asthma/Reactive Airway Disease: Yes Hx Recent Upper Respiratory Infection: Yes Hx Oxygen in Use at Home: Yes O2 in Use at Home (L/minute): 3.L 02 continuously Hx Sleep Apnea: Yes Sleep Apnea Screening Result - Last Documented: Positive Pulmonary History Comment: USES BIPAP AT HS - Neurologic History Hx Cerebrovascular Accident: No Hx Seizures: No Hx Dementia: No - Endocrine History Hx Diabetes: No - Renal History Hx Renal Disorders: No - Liver History Hx Hepatic Disorders: No - Neurological & Psychiatric Hx Hx Neurological and Psychiatric Disorders: Yes Neurological / Psychiatric History Comment: depression r/t pain - Cancer History Hx Cancer: Yes Cancer History Comment: SKIN - Congenital Disorder History Hx Congenital Disorders: No - GI History Hx Gastrointestinal Disorders: Yes Gastrointestinal History Comment: GERD. CONSTIPATION - Other Health History Other Health History: EHLER-DANLOS SYNDROME. FIBROMYALGIA. ECZEMA right HAND. DENTAL IMPLANT. hx of anemia. BRUISES EASILY. LILY SHLDR LIMITED ROM - Chronic Pain History Chronic Pain: Yes (generalized) - Surgical History Prior Surgeries: LUMBAR FUSION 10/2017. LILY TOTAL KNEE. ROYCE. RHINOPLASTY. TONSILLECTOMY. APPENDECTOMY. LILY SHLDR RTC. RT WRIST ORIF WITH POST HARDWARE REMVL. LILY CATARACT. LILY CARPAL TUNNEL ANE Review of Systems Review of Systems: - Exercise capacity METS (RN): 3 METS ANE Patient History - Allergies Allergies/Adverse Reactions: latex [Latex] Allergy (Severe, Verified 09/30/17 15:36) Dyspnea hydrocodone bitartrate [From Vicodin] Allergy (Intermediate, Verified 09/30/17 15:36) Rash Sulfa (Sulfonamide Antibiotics) Allergy (Mild, Verified 09/30/17 15:36) Rash adhesive tape Allergy (Verified 06/14/18 09:44) TOMATOES Allergy (Severe, Uncoded 11/02/16 21:27) DERMATITIS CHOCOLATE Allergy (Intermediate, Uncoded 11/02/16 21:27) DERMATITIS beer and wine Allergy (Uncoded 10/08/17 07:29) cinnamon Allergy (Uncoded 10/08/17 07:30) curcumin Allergy (Uncoded 10/08/17 07:29) - Home Medications Home Medications: Cetirizine [ZyrTEC 10 mg (*)] 10 mg PO BID PRN 04/07/16 [Last Taken 09/05/18] Cimetidine [Tagamet Hb] 200 mg PO HS 06/12/18 [Last Taken 09/04/18] Herbals/Supplements -Info Only 1 ea PO DAILY 06/12/18 [Last Taken 06/08/18] Hydrochlorothiazide [HCTZ (*)] 12.5 mg PO DAILY 06/12/18 [Last Taken 09/04/18] Ibuprofen [Motrin (*)] 200 - 400 mg PO Q6H PRN 06/12/18 [Last Taken 09/02/18] Montelukast Sodium [Singulair 10 mg (*)] 10 mg PO HS 06/12/18 [Last Taken ] Polyethylene Glycol 3350 [Miralax 17 gm (*)] 17 gm PO HS 06/12/18 [Last Taken ] Triamcinolone 0.1% [Triamcinolone 0.1% Cream (*)] 1 morris TP TID PRN 06/12/18 [ Last Taken 06/13/18] Wheat Dextrin [Benefiber] 1 each PO DAILY 06/12/18 [Last Taken 06/13/18] diphenhydrAMINE [Benadryl 25 MG (*)] 25 mg PO DAILY PRN 06/12/18 [Last Taken 09/22] Acetaminophen [Tylenol 325mg (*)] 650 mg PO Q6HRS PRN 08/31/18 [Last Taken 09/04] Budesonide/Formoterol 160/4.5 [Symbicort 160-4.5 Mcg Inh (*)] 2 puffs IH BID [Last Taken Unknown] Cholecalciferol Vit D3 [Vitamin D3 (*)] 1,000 units PO DAILY 08/31/18 [Last Taken 09/04/18] Lansoprazole [Prevacid] 30 mg PO DAILY 08/31/18 [Last Taken 09/05/18] Melatonin [Melatonin 5 mg] 10 mg PO HS 08/31/18 [Last Taken 09/04/18] Pregabalin [LYRICA] 300 mg PO BID 08/31/18 [Last Taken 09/05/18] - NPO status NPO Since - Liquids (Date): 09/04/18 NPO Since - Liquids (Time): 22:00 NPO Since - Solids (Date): 09/04/18 NPO Since - Solids (Time): 19:00 - Smoking Hx Smoking Status: Never smoked - Family Anes Hx Family Hx Anesthesia Complications: none ANE Labs/Vital Signs - Labs Result Diagrams: 09/05/18 07:22 09/05/18 07:22 - Vital Signs Blood Pressure: 111/79 Heart Rate: 87 Respiratory Rate: 18 O2 Sat (%): 98 Height: 157.48 cm Weight: 90.718 kg ANE Physical Exam - Airway Neck exam: FROM Mallampati Score: Class 3 Mouth exam: normal dental/mouth exam - Pulmonary Pulmonary: no respiratory distress - Cardiovascular Cardiovascular: regular rate and rhythym - ASA Status ASA Status: III ANE Anesthesia Plan Anesthesia Plan: GA w LMA Regional Anesthesia: single shot NB Total IV Anesthesia: No
[2018-09-05] MEDS ORDERED: MIDAZOLAM 2 MG/2 ML VIAL ONE (12:54)
[2018-09-05] MEDS ORDERED: MIDAZOLAM 2 MG/2 ML VIAL IVP ONE (12:55)
[2018-09-05] MEDS ORDERED: PHENYLEPHRINE HCL 100 MCG/ML SYR ONE (12:58)
[2018-09-05] MEDS ORDERED: DEXAMETHASONE 4 MG/ML VIAL ONE (12:58)
[2018-09-05] MEDS ORDERED: LIDOCAINE 2% 5 ML SDV ONE (12:58)
[2018-09-05] MEDS ORDERED: fentaNYL 100 MCG/2 ML INJ ONE ×4 (12:58→16:37)
[2018-09-05] MEDS ORDERED: PROPOFOL 200 MG/20 ML VIAL ONE ×2 (12:58→15:04)
[2018-09-05] MEDS ORDERED: ROPIVACAINE HCL 150 MG/30 ML INJ ONE (12:58)
[2018-09-05] MEDS ORDERED: ONDANSETRON 4 MG/2 ML VIAL ONE (12:58)
--- NOTE | 2018-09-05 12:59 | PDHPUP ---
History & Physical Update H&P update statement: This history and physical update is based on an assessment of the patient which was completed after admission or registration (within 24 hours), but prior to the surgery/procedure. H&P update: H&P reviewed & patient examined, no change in patient's condition since H&P completed (Patient seen/examined in conjunction with Dr. Jain.)
[2018-09-05] MEDS ORDERED: ALBUTEROL 3 ML DEYVIAL IH PRN (14:57)
[2018-09-05] MEDS ORDERED: ONDANSETRON 4 MG/2 ML VIAL IVP PRN ×2 (14:57→16:07)
[2018-09-05] MEDS ORDERED: HYDROmorphONE/DILAUDID 2 MG/ML INJ IVP PRN (14:57)
[2018-09-05] MEDS ORDERED: PROMETHAZINE HCL 25 MG/ML INJ IVP PRN ×2 (14:57→16:07)
[2018-09-05] MEDS ORDERED: DEXAMETHASONE 4 MG/ML VIAL IVP PRN (14:57)
[2018-09-05] MEDS ORDERED: NALOXONE HCL 0.4 MG/ML INJ IVP PRN (14:57)
[2018-09-05] MEDS ORDERED: BUPIVACAINE 0.5% 30 ML SDV ONE (15:49)
[2018-09-05] MEDS ORDERED: ONDANSETRON DISINTEGRATING 4 MG TAB PO PRN (16:07)
[2018-09-05] MEDS ORDERED: HYDROmorphONE/DILAUDID 1 MG/ML INJ IVP PRN (16:07)
--- NOTE | 2018-09-05 16:07 | POSTOPPROG ---
Post Op Note Date of Operation: 09/05/18 Surgeon: Poncho Jain [facility] Informaticist: JOSE Trejo Anesthesia: GET(General Endotracheal) Pre-op Diagnosis: Right shoulder AVN and OA Post-op Diagnosis: Right shoulder AVN and OA Indication: Right shoulder AVN and OA Procedure: Right shoulder hemiarthroplasty Inf/Abcess present in the surg proc area at time of surgery?: No Depth: Deep Incisional (Fascial) EBL: 50-100 Complications: None.
[2018-09-05] MEDS ORDERED: OXYCODONE/APAP 5/325 TAB PO PRN (16:11)
[2018-09-05] MEDS ORDERED: CETIRIZINE 10 MG TAB PO PRN (16:25)
[2018-09-05] MEDS ORDERED: ALBUTEROL 60 PUFFS/8 GM MDI IH PRN (16:25)
[2018-09-05] MEDS ORDERED: diphenhydrAMINE 25 MG CAP PO PRN (16:25)
[2018-09-05] MEDS ORDERED: DUPILUMAB 300 MG SQ SCH (16:30)
[2018-09-05] MEDS: fentaNYL 100 MCG/2 ML INJ IVP PRN ×3 (16:44→17:25)
[2018-09-05] MEDS ORDERED: HYDROmorphONE/DILAUDID 2 MG/ML INJ ONE (16:52)
--- NOTE | 2018-09-05 17:58 | POSTANESTH ---
Post Anesthetic Evaluation Cardiovascular Status: Normal, Stable Respiratory Status: Normal, Stable Level of Consciousness/Mental Status: Can Participate in Eval Pain Control: Adequate, Prn Tx Ordered Nausea/Vomiting Control: Adequate, Prn Tx Ordered Complications Possibly Related to Anesthesia: None Noted
--- NOTE | 2018-09-05 18:44 | GOP ---
DATE OF OPERATION: 09/05/2018 SURGEON: Poncho Jain MD SKIN CARE CONSULTANT: ANITHA Foster. ANESTHESIA: General with interscalene block. ANESTHESIOLOGIST: Is Dr. Munoz. PREOPERATIVE DIAGNOSIS: 1. Right shoulder cuff tear arthropathy with massive rotator cuff tear. 2. Right shoulder proximal humeral osteonecrosis. POSTOPERATIVE DIAGNOSIS: PROCEDURE PERFORMED: 1. Right shoulder hemiarthroplasty with CTA prosthesis. 2. Right shoulder partial repair of superior subscapularis rotator cuff tendon. 3. Right shoulder anterior stabilization and capsulorrhaphy. FINDINGS: Severe cuff tear arthropathy. No significant rotator cuff present superiorly or posterosu periorly. The infraspinatus was partially intact along the inferior 2/3, however, it was partially t orn and elevated with severe bursal contracture both on the articular side and bursal side. The tend on was quite immobile. Humeral head was flattened and deformed. There was no significant articular cartilage left along the main articulating surface. There was cystic change of the greater tuberosit y. There were multiple suture anchors in this area that were removed during surgery. The glenoid wa s with severe erosion and medialization with acetabularization of the glenoid, coracoid and acromion. No significant loose bodies. No signs of infection. SPECIMENS: None. ESTIMATED BLOOD LOSS: Less than 100 cc. INDICATIONS: This is a 73-year-old female with right shoulder massive recurrent cuff tears, cuff tea r arthropathy and proximal humeral osteonecrosis. The patient has been cleared by her medical team. She has had extensive nonoperative care, all of which has been unsuccessful in alleviating her pain. Due to severe glenoid destruction and acetabular rotation of the glenoid and coracoid, in addition to the subacromial space, the surgery was recommended as above. The risks, benefits, and alternative s were discussed with the patient. All of her questions were answered prior to surgery. She has pro vided a signed witnessed informed consent which has been placed in the chart. Please see history and physical for additional information. DESCRIPTION OF PROCEDURE: The patient was identified in the preoperative holding area and her right shoulder was signed and designated as the operative site. She was confirmed in bilateral lower extre mity TEDs and SCDs. She was taken back to the operating room, placed supine on the OR table and Dr. Munoz attempted to proceed with an interscalene block. This was apparently somewhat difficult due to the patient's habitus and she elected to proceed with this block in the PACU. General anesthesia wa s obtained. She was then carefully positioned in the beach chair position with abundant padding arou nd the head and neck. Care was taken to place foam goggles over the eyes. A pillow was placed behin d both knees. The heels and ankles were floated with foam and crate padding. Left upper extremity w as padded with foam and crate around the elbow and wrist. Right upper extremity was then prepped and draped in the usual sterile manner. A standard deltopectoral approach was used for her surgery. The skin line was anesthetized with 0.25 % Marcaine with epinephrine. Full-thickness dermal incision was made over a length of approximately 10 cm. Careful dissection was taken down through the subcutaneous fat with all small crossing venule s coagulated. The deltopectoral interval was identified. The cephalic vein was identified and small branches medially were coagulated with the Bovie cautery device. The vein was then taken laterally. Subdeltoid adhesions were divided with a Cynthia as well as my finger. A deltoid retractor was placed . The subdeltoid bursa was then excised. All dissection was kept lateral to the conjoined tendon. Once this bursectomy was completed, the superior aspect of the rotator cuff was found to be elevated and torn free from the superior aspect of the relatively deformed lesser tuberosity. In addition, th ere was no significant rotator interval as the superior aspect of the rotator cuff was missing. The proximal bicipital groove was identified and palpated, but no biceps was found there. A tenotomy was then performed approximately 1 cm medial to the insertion point at the lesser tuberosity. A tractio n stitch was placed in the medial aspect of this tendon. With gentle progressive external rotation, the shoulder was mobilized with subperiosteal dissection along the inferior aspect of the glenoid nec k. Once appropriate immobilization was achieved in order to dislocate the humeral head, this was car efully performed with leverage on the humeral head using a retractor in order to carefully displace a nd dislocate the head anteriorly with external rotation. Once this was appropriate and hemostasis wa s confirmed throughout, the standard Biomet extramedullary cutting guide was used. This was pinned i n position at 30 degrees of retroversion. The humeral head cut was placed. Due to the patient's sig nificant head collapse, this was a relatively thin wafer of bone with deformation and concavity on wh at otherwise should have been a convex humeral head surface. This was removed in its entirety. Next , with extension and adduction, the intramedullary canal was entered with a standard canal finder puja melania. Care was taken to place this in slight valgus and a center position. The start point was later al at the top of the head cut. Sequential reaming was performed until appropriate cortical chatter a t approximately at a size 8. Next, broaching was performed again up to a size 8 and this was found t o achieve an appropriate press-fit. The broach was left in place. Trialing was then performed and t he 48 x 19 mm EAS humeral head trial component was found to be the appropriate size for this patient. The patient had appropriate stability testing with no significant posterior instability. The patie nt did have some anterior instability with the subscapularis not in place. Given the deformity and t he change in the overall offset given the reconstruction and the replacement of a flat humeral head, capsulorrhaphy was performed. Using care careful mobilization of the subscap tendon, both on the pos terior and anterior surfaces with bursectomy and division of adhesions, the tendon was somewhat mobil ized. However, it was found to be relatively scarred in. Given the above, the anterior capsular por tion was carefully sutured and was allowed to be tenodesed to the repair site for eventual closure. In addition, the thick overlying bursa which was divided just lateral to the proximal bicipital groov e was also relatively thick and contracted and this was also used to further stabilize the anterior a spect of the shoulder at closure time. The trial components were removed. The joint was copiously irrigated with pulsatile lavage. The for LIVELENZ comprehensive shoulder system mini humeral stem, size 8 x 83 mm length, was then carefully malleted down into position with 30 degrees of retroversion. Excellent press-fit was achieved. Tri aling was again performed then with the formal stem in place. Once confirmed, the EAS humeral head f ormal component size 48 mm x 19 mm was then opened on the back table. The central portion of the audrey m was dried with standard drying equipment and the EAS head was then placed over the stem. There wer e some areas of bone that needed to be resected posteriorly and superiorly in order to finalize the C TA head type reconstruction. Using both the oscillating saw as well as an osteotome, the small bony areas were resected. A rongeur was used to remove these bony segments. The shoulder was again copio usly irrigated with sterile saline. Finally, at this point, it was found that the EAS had fit the sh oulder appropriately. Once the Day taper on the stem and head were cleaned and appropriate for eng agement, the head was malleted down onto the stem with excellent Day taper engagement. The head wa s grasped and attempted to be dislodged, found to be a very nice reconstruction and stable. Once thi s was completed, the shoulder was again assessed for stability and range of motion. Range of motion was appropriate. The patient did have some anterior instability with external rotation and therefore , as stated above, the capsule as well as the overlying bursa were used to further perform a capsulor rhaphy and anterior stabilization afterwards with cuff repair. Drill holes were created through the lesser tuberosity. The subscapular sternotomy was repaired with the use of these drill holes as well as tendon to tendon. In addition, superiorly, the area of the torn rotator cuff was carefully mobilized and repaired down to bone through bone tunnels. Prior to r epairing the subscapularis, the anterior capsular structures were carefully tenodesed down to the sub scap. In addition, after the subscap repair with both a double row technique, i.e. the suture arms w ere brought out laterally over the lateral soft tissues and bursa, the overlying bursa was then plica michelle and repaired in a [id number] type manner in order to achieve a capsulorrhaphy effect anterio r to the subscapularis tendon. This bursa was relatively unusual in how thick and fibrotic it was. With this reconstruction, the patient achieved at least 20 degrees of external rotation and had no fu rther anterior instability. She was again tested and had no posterior instability. She forward flex ed to at least 130-135 degrees without any increased tension on the repair. The rotator interval was then closed with multiple 0 Vicryl sutures. The joint cocktail was then used to anesthetize and pro vide appropriate local anesthesia around the shoulder including injection throughout the deltoid and soft tissues within the deltopectoral interval. Closure was then begun. The deep fascia layer was closed with multiple 0 Vicryl sutures. The deep dermal layer was closed wi th multiple 2-0 Vicryl sutures with additional sutures used to close the extensive fat as this was a potential space concern. 3-0 Monocryl was used to close the deep dermal layer. Earle were us ed to close the skin. Right upper extremity was placed in a shoulder immobilizer after standard surg ical postop dressings. The patient was returned to the supine position and the Anesthesia service to ok over to wake the patient up. TOURNIQUET TIME: None. DRAINS: None. IMPLANTS: 1. Biomet comprehensive shoulder system with mini humeral stem, 8 x 83 mm. A Biomet modular shoulde r system EAS humeral head 48 x 19 mm. 2. FiberWire suture was used for the capsulorrhaphy and rotator cuff repair. COMPLICATIONS: None. DISPOSITION: The patient was extubated and transferred to PACU in stable condition. /[id number]/MODL
[2018-09-05] MEDS: BUDESONIDE/FORMOTEROL 160/4.5 60 PUFFS/MDI IH SCH (20:48)
[2018-09-05] MEDS ORDERED: POLYETHYLENE GLYCOL 3350 17 GM PKT PO SCH (21:00)
[2018-09-05] MEDS ORDERED: FAMOTIDINE 20 MG TAB PO SCH (21:00)
[2018-09-05] MEDS ORDERED: MONTELUKAST SODIUM 10 MG PO SCH (21:00)
[2018-09-05] MEDS: PREGABALIN 100 MG CAP PO SCH (21:30)
[2018-09-05] MEDS: ceFAZolin 2 GM/DEXTROSE 100 ML IV SCH (21:33)
[2018-09-06] MEDS: ceFAZolin 2 GM/DEXTROSE 100 ML IV SCH ×2 (05:29→13:12)
[2018-09-06] MEDS ORDERED: CHOLECALCIFEROL VIT D3 1,000 UNITS TAB PO SCH (09:00)
[2018-09-06] MEDS ORDERED: LANSOPRAZOLE SUSP 3 MG/ML UDSYR (Peds) PO SCH (09:00)
[2018-09-06] MEDS ORDERED: DULoxetine 60 MG CAP PO SCH (09:00)
[2018-09-06] MEDS ORDERED: HYDROCHLOROTHIAZIDE 12.5 MG CAP PO SCH (09:00)
[2018-09-06] MEDS: PREGABALIN 100 MG CAP PO SCH (09:12)
[2018-09-06] MEDS: BUDESONIDE/FORMOTEROL 160/4.5 60 PUFFS/MDI IH SCH (09:13)
[2018-09-06] MEDS ORDERED: PANTOPRAZOLE SODIUM 40 MG TAB PO SCH (09:30)
--- NOTE | 2018-09-06 11:11 | PDMN ---
Medical Necessity Medical [place] [facility] [place] [facility] [place] OP: R shoulder hemiarthoplasty,,,,, AUTH# [id number] APPROVED FOR CPT 50004, [id number], [id number], [id number] DONE INPNT LOS 5 DAYS
[2018-09-06 12:11] VITALS: BP 111/77
--- NOTE | 2018-09-06 13:25 | SOAPPROG ---
SOAP Progress Note Assessment/Plan: Assessment: POD #1 Right shoulder hemiarthroplasty. Overall doing well, pain well controlled todyay. Plan: NWB to RUE. Maintain sling. Can begin AROM/PROM of right wrist and hand; no movement of right shoulder at this time. DVT Prophylaxis: Xarelto on POD #1; has home Rx which she knows to begin taking tonight. Recommend BABS wright in conjunction with SCDs. IS. Pain control: has Rx at home. Percocet 5/325; take 1-2 po q6-8hr prn pain. PT/OT: appreciate their reccs. NWB to RUE, can begin AROM/PROM of right wrist and hand. Maintain sling. RTC 7-10 days for repeat radiographs and staple remvoal or prn additional questions/concerns which arise. Contact our office with questions/concerns: [phone] Dispo: Ok to D/C once cleared by floor criteria, CM, PT/OT, pain well controlled. Advised patient to watch for worsening pain, change in ROM or strength, abnormal numbness/tingling, change in heat/color of extremities, cramping in her calves or ankles, fever, chills, NVD and to seek immediate medical attention if seen. Patient seen/examined in conjunction with Dr. Castillo. Subjective: Able to respond appropriately to questions/commands. Sitting up in chair, alone in room. Pain well controlled at this time and states only feels a dull soreness. Eating normally, passing flatus. Denies change in heat/color of extremity, cough, congestion, chest pain or shortness of breath, worsening pain over time, abnormal numbness/tingling, worsening change in distal ROM or strength, cramping in her calves or ankles, abnormal bleeding/oozing/disharge. Is in sling during my visit today and it is in good position. Objective: Vital Signs Temp Pulse Resp BP Pulse Ox 37.1 C 92 16 111/77 98 09/06/18 12:00 09/06/18 12:00 09/06/18 12:00 09/06/18 12:00 09/06/18 12:00 Laboratory Results 09/05/18 07:22 09/05/18 07:22 09/05/18 09/06/18 09/07/18 05:59 05:59 05:59 Intake Total 1320 Output Total 1000 300 Balance 320 -300 AO, NAD, sling in place, non-labored breathing, no diaphoresis. Afebrile, normotensive. Abdomen soft, non-tender. MS: Bilateral upper extremities: right shoulder bandaged with no abnormal bleeding, oozing, discharge, change in heat/color around wound site or of extremity with 1 + non-pitting edema, all compartments soft. Right shoulder in sling. Able to wiggle fingers without difficulty and make a full fist b/l with 5/5 dockmaster strength. Able to fire right deltoid without difficulty and mild TTP over incision site. No erythema, edema, ecchymosis or calor otherwise noted. FROM of right elbow, wrist, hand. Is compliant in sling. DNVI with no focal deficits noted. Negative passive stretch b/l. Brisk cap refill b/l in BLUE and BLLE. Calves soft/supple and NTTP b/l with negative bilateral Homans b/l with BABS hose present, yet SCDs on and pumping b/l. Radiographs: 2 views of right shoulder show right shoulder hemiarthroplasty in good position/alignment. - Pending Discharge Pending Discharge Within 24 Hours: Yes Pending Discharge Date: 09/07/18 Pending Discharge Time: 11:00 ICD10 Worksheet Patient Problems: Problems Problem Status Onset C. difficile diarrhea Acute 12/14/16 Chest pain Acute Hypertension Acute Lumbar canal stenosis Acute RAD (reactive airway disease) Acute Stenosis (acquired) of bladder neck or vesicourethral orifice Acute
--- NOTE | 2018-09-06 14:08 | ASMTDCNOTE ---
Case Management Discharge Discharge Order Complete? Answers: Yes Patient to Obtain Answers: via Family Medications Transportation Arranged Answers: Family/Friends Discharge Comments Notes: Patient discharged home w . Will f/u w Dr Jain in 7-10 days and begin PT 4-6 weeks post-op. No other d/c needs identified. Date Signed: 09/06/2018 02:07 PM Electronically Signed By:Pam Henson RN
--- NOTE | 2018-09-06 14:08 | ASMTLACE ---
MAGGI Length of stay for Answers: 1 day current admission Acuity / Level of Answers: Yes Care: Did the patient have an inpatient admission? Comorbidities - select Answers: Chronic pulmonary disease all that apply Opioid dependence / Chronic pain Other Notes: HTN; GERD # of Emergency department Answers: 0 visits in the last 6 months Social determinants Answers: Mental health diagnosis (anxiety, depression, pers onality disorders, etc.) Score: 14 Date Signed: 09/06/2018 02:08 PM Electronically Signed By:Pma Henson RN
[2018-09-06] MEDS ORDERED: CEPHALEXIN 500 MG CAP PO ONE (14:30)
[2018-09-06] MEDS ORDERED: RIVAROXABAN 10 MG TAB PO SCH (20:00)
== END 2018-09-06 15:01 | disposition home or self-care (01) | DRG 483 ==
LOC: F3N 09-05 10:30
PROVIDERS: ADMIT Orthopaedic Surgery; ATTEND Orthopaedic Surgery
PROC: 0LQ10ZZ Repair Right Shoulder Tendon, Open Approach (ICD-10-PCS; principal; 2018-09-05 12:15)
PROC: 0RRJ0J6 Replacement of Right Shoulder Joint with Synthetic Substitute, Humeral Surface, Open Approach (ICD-10-PCS; principal; 2018-09-05 12:15)
DX: M19.011 Primary osteoarthritis, right shoulder (principal); M87.9 Osteonecrosis, unspecified; M75.101 Unspecified rotator cuff tear or rupture of right shoulder, not specified as traumatic
CPT/HCPCS: 97161-GP; J0171; J0690; J1100; J1170; J1885; J2250; J2270; J2370; J2405; J2704; J2795; J3010